=== PATIENT | female | born 1950 | race Two or more races ===

== ENCOUNTER 2024-12-13 22:43 | Inpatient (IN) | payer OTHER ==
[~2024-12-13] VITALS: Ht 160 cm; Wt 74.5 kg
[2024-12-14 00:13] VITALS: PULSE 67; RESP 18; O2SAT 100
--- NOTE | 2024-12-14 01:05 | DVH ---
Exam: CT CT AB PEL WO CON-NO ORAL OR IV History: abd pain Comparison Study: None Technique: Multidetector spiral CT of the abdomen was performed from lung bases to pubic symphysis. I maging was performed without IV contrast. Axial, coronal and sagittal multiplanar reformats were obta ined from the axial data set by the technologist. Radiation Dose : 1. Abdomen/Pelvis: CTDIvol 24.08 mGy, DLP 1288.53 mGy*cm. Findings: Evaluation of solid organs is limited due to lack of intravenous contrast use. Lung Bases: Moderate right pleural effusion with adjacent atelectasis. The left lung base is clear. C ardiomegaly and cardiac pacing leads. No pericardial effusion. Liver: The liver is moderately enlarged. No focal lesions. Gallbladder and Biliary Tree: Unremarkable Spleen: Splenic parenchymal calcifications. Pancreas: The pancreas is grossly normal in appearance. Adrenal Glands: Unremarkable Kidneys: Mild bilateral renal atrophy and multifocal cortical scarring. Bilateral renal cortical cys ts measure up to 3.2 cm on the right. No evidence of calculi or hydronephrosis. Bladder: Grossly unremarkable for degree of distention. Bowel: The stomach is grossly normal in appearance. Small bowel and colon are normal in caliber and d istribution. Diverticulosis coli. The appendix is not visualized; however, no secondary findings of a cute appendicitis identified. Ascites: Moderate volume abdominopelvic ascites. Lymphadenopathy: No mesenteric, retroperitoneal or periportal lymphadenopathy. Abdominal Wall and Mesentery: Unremarkable. Vasculature: The visualized abdominal aorta is normal in size and caliber. Atherosclerotic vascular c alcifications. Evaluation of abdominal and pelvic vessels is limited due to lack of intravenous cont rast. Pelvic Organs: Lobulated predominantly soft tissue mass within the central anterior superior pelvis m easuring 9.0 x 7.8 cm and containing scattered parenchymal calcifications appears to arise from the u terine fundus. Fluid containing right femoral hernia. Musculoskeletal: No aggressive focal bony lesions, acute fractures or dislocation. IMPRESSION: 1. Moderate right pleural effusion with adjacent atelectasis. 2. Moderate volume abdominopelvic ascites. 3. Cardiomegaly. 4. Lobulated superior anterior pelvic mass appears to arise from the uterine fundus and may represent uterine leiomyomata, however other malignancies are not excluded. 5. Diverticulosis coli. Radiation optimization: All CT scans at this facility use at least one of these dose optimization davis hniques: automated exposure control mA and/or kV adjustment per patient size (includes targeted exam s where dose is matched to clinical indication) or iterative reconstruction.
--- NOTE | 2024-12-14 01:30 | ED.PDOC ---
GI ASSESSMENT HPI Comments 74-year-old female complaining of abdominal pain x1 year. States pain has been getting worse over the last month. Nothing makes it better, nothing makes it worse. Patient states she came from [place] [facility]. States no one has been listening to her. Patient states he has been going to the bathroom normally. No vomiting no diarrhea. Chief Complaint: Abdominal Pain Time Seen by MD: 23:19 Reviewed Notes: Nurses Notes Allergies: Coded Allergies: Lidocaine (Verified Allergy, Unknown, 12/13/24) Morphine (Verified Allergy, Unknown, 12/13/24) Information Source: Patient Mode of Arrival: EMS Past Medical History PAST MEDICAL HISTORY: Denies Surgical History: Denies all surgeries HYDRAULIC MINER History: No Pertinent HYDRAULIC MINER History Constitutional: denies: chills, diaphoresis, fatigue, fever, malaise, sweats, weakness, others EENTM: denies: blurred vision, double vision, ear bleeding, ear discharge, ear drainage, ear pain, ear ringing, eye pain, eye redness, hearing loss, mouth pain, mouth swelling, nasal discharge, nose bleeding, nose congestion, nose pain, photophobia, tearing, throat pain, throat swelling, voice changes, others Respiratory: denies: cough, hemoptysis, orthopnea, SOB at rest, shortness of breath, SOB with excertion, stridor, wheezing, others Cardiovascular: denies: chest pain, dizzy spells, diaphoresis, Dyspnea on exertion, edema, irregular heart beat, left arm pain, lightheadedness, palp itations, PND, syncope, others Gastrointestinal: denies: abdomen distended, abdominal pain, blood streaked bowels, constipated, diarrhea, dysphagia, difficulty swallowing, hematemesis, melena, nausea, poor appetite, poor fluid intake, rectal bleeding, rectal pain, vomiting, others Genitourinary: denies: abnormal vagina bleeding, burning, dyspareunia, dysuria, flank pain, frequency, hematuria, incontinence, pain, , vagina discharge, urgency, others Neurological: denies: dizziness, fainting, headache, left sided numbness, left sided weakness, numbness, paresthesia, pre-existing deficit, right sided numbness, right sided weakness, seizure, speech problems, tingling, tremors, weakness, others Musculoskeletal: denies: back pain, gout, joint pain, joint swelling, muscle pain, muscle stiffness, neck pain, others Integumetry: denies: bruises, change in color, change in hair/nails, dryness, laceration, lesions, lumps, rash, wounds, others Allergic/Immunocompromised: denies: Difficulty Healing, Frequent Infections, Hives, Itching, others Physical Exam General Appearance: Moderate Distress, Normal HEENT: Normal ENT Inspection, Pharynx Normal, TMs Normal Neck: Full Range of Motion, Non-Tender, Normal, Normal Inspection Respiratory: Chest Non-Tender, Lungs Clear, No Accessory Muscle Use, No Respiratory Distress, Normal Breath Sounds Cardiovascular: No Edema, No JVD, No Murmur, No Gallop, Normal Peripheral Pulses, Regular Rate/Rhythm Breast Exam: Deferred Gastrointestinal: No Organomegaly, Non Tender, No Pulsatile Mass, Normal Bowel Sounds, Soft Genitalia: Deferred Pelvic: Deferred Rectal: Deferred Extremities: No calf tenderness, Normal capillary refill, Normal inspection Musculoskeletal : Apperance: Normal Neurologic: Alert, 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 Was a procedure done?: No GI differential Dx Differential Diagnosis: Appendicitis, Gastritis/PUD, Gastroenteritis, GI hemorrhage, Pancreatitis X-Ray, Labs, Meds, VS Vital Signs Date Time Temp Pulse Resp B/P (MAP) Pulse Ox O2 Delivery O2 Flow Rate FiO2 12/14/24 00:13 97.7 68 16 125/64 (84) 100 97.7 12/14/24 00:13 67 18 100 Nasal Cannula* 4 36 12/14/24 00:00 111 12/14/24 00:00 112 12/13/24 22:47 98.6 110 18 127/63 (84) 99 98.6 X-Ray, Labs, Meds, VS Comment CT abdomen and pelvis IMPRESSION: 1. Moderate right pleural effusion with adjacent atelectasis. 2. Moderate volume abdominopelvic ascites. 3. Cardiomegaly. 4. Lobulated superior anterior pelvic mass appears to arise from the uterine fundus and may represent uterine leiomyomata, however other malignancies are not excluded. 5. Diverticulosis coli. Patient will be admitted for right pleural effusion, ascites, possible malignancy in the uterus Patient refused lab works Time of 1ST Reevaluation: 01:26 Reevaluation 1ST: Unchanged Patient Education/Counseling: Diagnosis, Treatment Family Education/Counseling: Diagnosis, Treatment Departure 1 Departure Time of Disposition: :25 Impression: Primary Impression: Abdominal pain Qualified Codes: R10.84 - Generalized abdominal pain Additional Impressions: Ascites Qualified Codes: R18.0 - Malignant ascites Abdominal mass Qualified Codes: R19.00 - Intra-abdominal and pelvic swelling, mass and lump, unspecified site Disposition: ADMITTED INPATIENT Condition: Stable Discharged With: Self Critical Care Note Critical Care Time?: No Stability Stability form required: No Heart Score Heart Score: Heart Score Response (Comments) Value History N/A 0 EKG N/A 0 Age N/A 0 Risk Factors N/A 0 Troponin N/A 0 Total 0 ARVIN AMES December 14, 2024 01:30
[2024-12-14] MEDS: traMADol HCL 50 MG TAB PO ONE (05:45)
[2024-12-14] MEDS: ACETAMINOPHEN 500 MG TAB or CAP PO ONE (05:45)
[2024-12-14] MEDS: ASPirin 81 mg TAB PO ONE (05:46)
[2024-12-14 06:04] LABS: Basophils # (auto) 0.1 10 ^3/uL (0-0.2); Eosinophils # (auto) 0.1 10 ^3/uL (0-0.8); Eosinophils % (auto) 1.8 % (0.0-7.0); Hematocrit 27.8 % (36.0-46.0); Hemoglobin 8.8 g/dL (12.2-16.2); Lymphocytes # (auto) 1.2 10 ^3/uL (0.4-5.4); Mean Corpuscular Hemoglobin 29.7 pg (28.0-32.0); Mean Corpuscular Hgb Conc. 31.8 g/dL (32.0-36.0); Mean Corpuscular Volume 93.4 fL (80.0-100.0); Monocytes # (auto) 0.5 10 ^3/uL (0-1.3); Monocytes % (auto) 8.5 % (0.0-12.0); Neutrophils # (auto) 3.8 10 ^3/uL (1.6-8.6); Neutrophils % (auto) 67.7 % (37.0-80.0); Nucleated Red Blood Cells % 0.2 %; Platelet Count (auto) 158 10^3/uL (140-450); Red Blood Cells 2.98 10^6/uL (4.0-5.20); Red Cell Distribution Width 19.1 % (11.8-14.3); White Blood Cell 5.6 10^3/uL (4.4-10.8)
[2024-12-14 06:05] LABS: Alanine Aminotransferase 17 U/L (7-40); Albumin 3.8 g/dL (3.2-4.8); Anion Gap 14 (5-15); BUN/Creatinine Ratio 7.4 (10.0-20.0); Carbon Dioxide 24 mmol/L (20-31); Chloride 100 mmol/L (98-107); Glucose 80 mg/dL (74-106); Sodium 138 mmol/L (136-145); Total Protein 6.8 g/dL (5.7-8.2)
[2024-12-14 06:06] LABS: Bilirubin, Total 0.5 mg/dL (0.2-1.0)
[2024-12-14 06:11] LABS: Alkaline Phosphatase 120 U/L (46-116); Aspartate Aminotransferase 12 U/L (13-40); Blood Urea Nitrogen 46 mg/dL (9-23)
[2024-12-14 06:12] LABS: Potassium 5.9 mmol/L (3.5-5.1)
[2024-12-14 06:21] LABS: Lipase 32 U/L (12-53)
--- NOTE | 2024-12-14 06:57 | ECG ---
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
--- NOTE | 2024-12-14 06:57 | ECG ---
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
[2024-12-14] MEDS ORDERED: MORPHINE SULFATE 4 MG/ML SYR/VIAL IV ONE (07:15)
[2024-12-14] MEDS: ALBUTEROL SULF 2.5 MG/0.5ML(0.5%) NEB SOLN NEB ONE (07:54)
[2024-12-14] MEDS: LORazepam 2MG/ML-1ML VIAL IV ONE ×2 (07:59→14:41)
[2024-12-14] MEDS: CALCIUM GLUC 1,000mg/50ml-NS 50 ML IV ONE (08:03)
[2024-12-14] MEDS: SODIUM BICARB 8.4% 50Meq/50ml SYR INJ IV ONE (08:04)
[2024-12-14] MEDS: ONDANSETRON HCL 4 MG/2 ML VIAL IV ONE (08:04)
--- NOTE | 2024-12-14 08:26 | ED.PDOC ---
Departure 1 Departure Time of Disposition: 08:25 ([place] authorization to admit to [facility] [id number] with worsening hyperkalemia and elevated troponin. We will admit patient here for further workup) Impression: Primary Impression: Abdominal pain Qualified Codes: R10.84 - Generalized abdominal pain Additional Impressions: Abdominal mass Qualified Codes: R19.00 - Intra-abdominal and pelvic swelling, mass and lump, unspecified site Ascites Qualified Codes: R18.0 - Malignant ascites Hyperkalemia Elevated troponin Disposition: ADMITTED INPATIENT Admit to: [facility] Condition: Guarded Discharged With: Self Critical Care Note Critical Care Time?: Yes Critical care comment: Hyperkalemia Authorized and Performed by: Jean Hernadez MD Total critical care time: Approximately 32 minutes Due to a high probability of clinically significant, life threatening deterioration, the patient required my highest level of preparedness to int ervene emergently and I personally spent this critical care time directly and personally managing the patient. This critical care time included obtaining a history; examining the patient; pulse oximetry; ordering and review of studies; arranging urgent treatment with development of a management plan; evaluation of patient's response to treatment; frequent reassessment; and, discussions with other providers. This critical care time was performed to assess and manage the high probability of imminent, life-threatening deterioration that could result in multi-organ failure. It was exclusive of separately billable procedures and treating other patients and teaching time. Please see my other sections and the rest of the note for further information on patient assessment and treatment. JEAN HERNADEZ MD December 14, 2024 08:26
[2024-12-14] MEDS: FUROSEMIDE 40 MG/4 ML VIAL IV ONE (08:32)
[2024-12-14 08:37] VITALS: PULSE 111; RESP 20; O2SAT 93
[2024-12-14] MEDS: DEXTROSE (50%) 50ML SYRG IV ONE (08:42)
[2024-12-14] MEDS: HYDROcodone-ACET 5/325MG TAB PO ONE (08:42)
[2024-12-14] MEDS: InsuLIN REG 1unit/0.01ml Soln (100units/ml) IV ONE (08:42)
[2024-12-14] MEDS ORDERED: MORPHINE SULFATE INJ 2 MG/ml SYRG IV PRN (09:45)
[2024-12-14] MEDS ORDERED: DOCUSATE SOD 100 MG CAP PO PRN (09:45)
[2024-12-14] MEDS ORDERED: NITROGLYCERIN 0.4 MG SL TAB SL PRN (09:45)
[2024-12-14] MEDS ORDERED: SERT-289 PO (09:58)
[2024-12-14] MEDS ORDERED: CARV25TA55 PO (09:58)
[2024-12-14] MEDS ORDERED: AMLO1TAB22 PO (09:58)
[2024-12-14] MEDS ORDERED: APIX2.5T PO (09:58)
[2024-12-14] MEDS ORDERED: BUME2TAB5 PO (09:58)
[2024-12-14] MEDS ORDERED: ATOR20TA50 PO (09:58)
[2024-12-14] MEDS ORDERED: PANT40T PO (09:58)
[2024-12-14] MEDS: SERTRALINE HCL 50 MG TAB PO SCH (10:00)
[2024-12-14] MEDS: PANTOPRAZOLE 40 MG TAB PO SCH (10:00)
[2024-12-14] MEDS: APIXABAN 2.5 MG TAB PO SCH (10:00)
[2024-12-14] MEDS ORDERED: INSUINJ2 SC (10:03)
[2024-12-14] MEDS ORDERED: INSU1INJ4 SC (10:03)
[2024-12-14] MEDS: CARVEDILOL 12.5 MG TAB PO SCH (10:21)
[2024-12-14] MEDS: amLODIPine BESYLATE 5 MG TAB PO SCH (10:43)
[2024-12-14] MEDS: INSULIN NPH Isophane (HUMAN) 1unit/0.01ml Susp(100units/ml) SC SCH (10:44)
--- NOTE | 2024-12-14 10:56 | DVHHP2 ---
History of Present Illness Reason for Visit: Abdoinal pain History of Present Illness Ernestina Unger is a 74-year-old female with past medical history of ESRD on HD M,W,F, hypertension, CHF, diabetes, hyperlipidemia, gastric ulcer, anxiety, atrial fibrillation and weakness who is being seen for abdominal pain. On assessment, patient is altered and unable to provide any history. I called and spoke with her daughter. She stated the patient typically lives with her. She was recently hospitalized and then discharged to a SNF for acute rehabilitation on 11/18/2024. She states the patient has been complaining of abdominal pain and was recently diagnosed with GERD. CT scan completed in ER showed an abdominal ma ss, the patient's daughter states they did not know anything about her having an abdominal mass. Cardiovascular: AFIB, HTN, hyperipidemia Renal/: Chronic renal failure Endocrine: Diabetes Smoke: No ALCOHOL: none Drugs: None Lives: Long Term Domestic Violence: Neg Review of Systems Constitutional: No: Fever, Chills, Sweats, Weakness, Malaise, Other Eyes: No: Pain, Vision change, Conjunctivae inflammation, Eyelid inflammation, Other, Redness ENT: No: Ear pain, Ear discharge, Nose pain, Nose discharge, Nose congestion, Mouth pain, Mouth swelling, Throat pain, Throat swelling, Other Respiratory: No: Cough, Dry, Shortness of breath, SOB with excertion, Wheezing, Hemoptysis, Pleuritic Pain, Sputum, Wheezing, Other Cardiovascular: No: Chest Pain, Palpitations, Orthopnea, Paroxysmal Noc. Dyspnea, Edema, Lt Headedness, Other Gastrointestinal: Abdominal Pain; No: Nausea, Vomiting, Diarrhea, Constipation, Melena, Hematochezia, Other Genitourinary: No Dysuria, No Frequency, No Incontinence, No Hematuria, No Retention, No Other Skin: No: Rash, Lesions, Jaundice, Bruising, Other Allergies: Coded Allergies: Lidocaine (Verified Allergy, Unknown, 12/13/24) Morphine (Verified Allergy, Unknown, 12/13/24) Medications Current Medications Medications Dose Ordered Sig/June Route Start Time Stop Time Status Last Admin Dose Admin Sodium Chloride 10 ml Q8HR IV 12/14/24 14:00 UNV Acetaminophen/ Hydrocodone Bitart 1 tab Q4HP PRN PO 12/14/24 09:45 UNV Ondansetron HCl 4 mg Q4HP PRN IV 12/14/24 09:45 UNV Docusate Sodium 100 mg BIDPRN PRN PO 12/14/24 09:45 UNV Acetaminophen 650 mg Q6HP PRN PO 12/14/24 09:45 UNV Nitroglycerin 0.4 mg Q5MINP PRN SL 12/14/24 09:45 UNV Morphine Sulfate 2 mg Q30M PRN IV 12/14/24 09:45 UNV Amlodipine Besylate 5 mg DAILY PO 12/14/24 10:00 UNV Apixaban 2.5 mg BID PO 12/14/24 10:00 UNV Atorvastatin Calcium 20 mg HS PO 12/14/24 22:00 UNV Pantoprazole Sodium 40 mg BID PO 12/14/24 10:00 UNV Sertraline HCl 50 mg DAILY PO 12/14/24 10:00 UNV Patient Own Medication 1 tab BID PO 12/14/24 10:00 UNV Patient Own Medication 1 tab BID PO 12/14/24 10:00 UNV Exam Vital Signs Vital Signs Date Time Temp Pulse Resp B/P (MAP) Pulse Ox O2 Delivery O2 Flow Rate FiO2 12/14/24 08:32 177/61 12/14/24 08:00 99 21 100 12/14/24 07:54 Nasal Cannula* 2 28 12/14/24 00:13 97.7 97.7 General Appearance: Alert, Oriented X3 HEENT: Atraumatic, PERRLA Respiratory: Clear to auscultation, Normal air movement Cardiovascular: Regular rate, Normal S1, Normal S2 Abdominal: Normal bowel sounds, Soft, No tenderness Extremities: No clubbing Skin: No rashes Neuro: Normal gait Psych/Mental Status: Mental status NL, Mood NL Labs/Xrays Labs Test 12/14/24 08:42 12/14/24 05:24 Range/Units Troponin I High Sensitivity 121 *H </=34 ng/L White Blood Count 5.6 4.4-10.8 10^3/uL Red Blood Count 2.98 L 4.0-5.20 10^6/uL Hemoglobin 8.8 L 12.2-16.2 g/dL Hematocrit 27.8 L 36.0-46.0 % Mean Corpuscular Volume 93.4 80.0-100.0 fL Mean Corpuscular Hemoglobin 29.7 28.0-32.0 pg Mean Corpuscular Hemoglobin Concent 31.8 L 32.0-36.0 g/dL Red Cell Distribution Width 19.1 H 11.8-14.3 % Platelet Count 158 140-450 10^3/uL Mean Platelet Volume 8.2 6.9-10.8 fL Neutrophils (%) (Auto) 67.7 37.0-80.0 % Lymphocytes (%) (Auto) 21.0 10.0-50.0 % Monocytes (%) (Auto) 8.5 0.0-12.0 % Eosinophils (%) (Auto) 1.8 0.0-7.0 % Basophils (%) (Auto) 1.0 0.0-2.0 % Neutrophils # (Auto) 3.8 1.6-8.6 10 ^3/uL Lymphocytes # (Auto) 1.2 0.4-5.4 10 ^3/uL Monocytes # (Auto) 0.5 0-1.3 10 ^3/uL Eosinophils # (Auto) 0.1 0-0.8 10 ^3/uL Basophils # (Auto) 0.1 0-0.2 10 ^3/uL Nucleated Red Blood Cells 0.2 % Sodium Level 138 136-145 mmol/L Potassium Level 5.9 *H 3.5-5.1 mmol/L Chloride Level 100 98-107 mmol/L Carbon Dioxide Level 24 20-31 mmol/L Anion Gap 14 5-15 Blood Urea Nitrogen 46 H 9-23 mg/dL Creatinine 6.22 H 0.550-1.02 mg/dL Glomerular Filtration Rate Calc 7 >90 mL/min BUN/Creatinine Ratio 7.4 L 10.0-20.0 Serum Glucose 80 74-106 mg/dL Calcium Level 10.0 8.7-10.4 mg/dL Total Bilirubin 0.5 0.2-1.0 mg/dL Aspartate Amino Transferase (AST) 12 L 13-40 U/L Alanine Aminotransferase (ALT) 17 7-40 U/L Alkaline Phosphatase 120 H 46-116 U/L Total Protein 6.8 5.7-8.2 g/dL Albumin 3.8 3.2-4.8 g/dL Lipase 32 12-53 U/L Exam: CT CT AB PEL WO CON-NO ORAL OR IV Findings: Evaluation of solid organs is limited due to lack of intravenous contrast use. Lung Bases: Moderate right pleural effusion with adjacent atelectasis. The left lung base is clear. Cardiomegaly and cardiac pacing leads. No pericardial effusion. Liver: The liver is moderately enlarged. No focal lesions. Gallbladder and Biliary Tree: Unremarkable Spleen: Splenic parenchymal calcifications. Pancreas: The pancreas is grossly normal in appearance. Adrenal Glands: Unremarkable Kidneys: Mild bilateral renal atrophy and multifocal cortical scarring. Bilateral renal cortical cysts measure up to 3.2 cm on the right. No evidence of calculi or hydronephrosis. Bladder: Grossly unremarkable for degree of distention. Bowel: The stomach is grossly normal in appearance. Small bowel and colon are normal in caliber and distribution. Diverticulosis coli. The appendix is not visualized; however, no secondary findings of acute appendicitis identified. Ascites: Moderate volume abdominopelvic ascites. Lymphadenopathy: No mesenteric, retroperitoneal or periportal lymphadenopathy. Abdominal Wall and Mesentery: Unremarkable. Vasculature: The visualized abdominal aorta is normal in size and caliber. Atherosclerotic vascular calcifications. Evaluation of abdominal and pelvic vessels is limited due to lack of intravenous contrast. Pelvic Organs: Lobulated predominantly soft tissue mass within the central anterior superior pelvis measuring 9.0 x 7.8 cm and containing scattered parenchymal calcifications appears to arise from the uterine fundus. Fluid containing right femoral hernia. Musculoskeletal: No aggressive focal bony lesions, acute fractures or dislocation. IMPRESSION: 1. Moderate right pleural effusion with adjacent atelectasis. 2. Moderate volume abdominopelvic ascites. 3. Cardiomegaly. 4. Lobulated superior anterior pelvic mass appears to arise from the uterine fundus and may represent uterine leiomyomata, however other malignancies are not excluded. 5. Diverticulosis coli. Assessment/Plan Assessment/Plan Assessment: Hyperkalemia, Elevated troponin, likely due to chronic kidney disease, Cardiomegaly, Pleural effusion, Ascites, Pelvic Mass, possible uterine leiomyoma, Metabolic encephalopathy, ESRD on HD-M,W,F, CHF, Diabetes, Hypertension, Plan: Admit to Tele, Nephrology consult, Consider DISTRICT ASSOCIATE JUDGE consult, Possible IR consult for biopsy, Hyperkalemia protocol, Hemodialysis, Home medications reconciled, Plan discussed with: Patient My Orders Orders - MANPREET ALONZO Procedure Category Date Status Time Admit ADMIT 12/14/24 Transmitted 09:42 Code Status CODE 12/14/24 Transmitted 09:42 Renal DIET 12/14/24 Transmitted Standard(2gna,3gk,Lopho) Lunch Sodium Chloride Lock PHA 12/14/24 Logged (Saline Lock Ns) 14:00 Hydrocodone-Acet PHA 12/14/24 Logged 5/325mg Tab ([place] 09:45 Ondansetron Hcl PHA 12/14/24 Logged (Zofran) 09:45 Docusate Sodium PHA 12/14/24 Logged Capsule (Colace 09:45 Complete Blood Count LAB 12/15/24 Verified 04:00 Comprehensive LAB 12/15/24 Verified Metabolic Panel 04:00 Condition: Critical ALEJANDRO 12/14/24 In Process 09:42 Acetaminophen Tablet PHA 12/14/24 Logged (Tylenol Tablet) 09:45 Nitroglycerin PHA 12/14/24 Logged Sublingual (Ntrostat 09:45 Morphine Sulfate PHA 12/14/24 Logged Injection 09:45 Stat Ekg For Chest ALEJANDRO 12/14/24 In Process Pain 09:42 Notify Of Changes ALEJANDRO 12/14/24 In Process From Base 09:42 Firebreak Cutter For ALEJANDRO 12/14/24 In Process 24 Hours 09:42 Emergency Dysrhythmia ALEJANDRO 12/14/24 In Process Protocol 09:42 Rhythm Strips Once ALEJANDRO 12/14/24 In Process Every Shift 09:42 Oxygen By Nasal RT 12/14/24 Transmitted Cannula 09:42 Amlodipine Tablet PHA 12/14/24 Logged (Norvasc Tablet) 10:00 Apixaban (Eliquis) PHA 12/14/24 Logged 10:00 Atorvastatin (Lipitor) PHA 12/14/24 Logged 22:00 Pantoprazole Tablet PHA 12/14/24 Logged (Protonix Tablet) 10:00 Sertraline Hcl PHA 12/14/24 Logged (Zoloft) 10:00 (Nf) Bumetanide PHA 12/14/24 Logged 10:00 (Nf) Carvedilol PHA 12/14/24 Logged 10:00 Insulin Nph Isophane PHA 12/14/24 Logged (Human) (Novolin N) 10:00 (Nf) Insulin Nph PHA 12/14/24 Logged (Human) (Isophane) 22:00 Glucose Blood PHA 12/14/24 Transmitted (Accu-Chek Comfort 11:30 Bedtime Insulin Scale PHA 12/14/24 Transmitted 22:00 Moderate Insulin Ss PHA 12/14/24 Transmitted 11:30 Dextrose 50% Syringe PHA 12/14/24 Transmitted 10:15 Date of Service: December 14, 2024 Billing Provider: MANPREET ALONZO Common Visit Codes: [id number] INP/OBS CARE (MOD) MANPREET ALONZO December 14, 2024 10:56
[2024-12-14] MEDS: ACCU-CHEK COMFORT CURVE STRIP VI SCH (11:00)
[2024-12-14] MEDS: InsuLIN REG 1unit/0.01ml Soln (100units/ml) SC SCH ×2 (11:00→21:58)
[2024-12-14] MEDS ORDERED: VANCOMYCIN PER PHARMACY 0 MG IV SCH (11:00)
[2024-12-14] MEDS: SODIUM CHLOR 0.9% PF (SALINE LOCK) 10ML VIAL/SYR IV SCH (11:01)
[2024-12-14] MEDS ORDERED: VANCOMYCIN 1.5GM/300ML 300 ML IV ONE (11:30)
[2024-12-14] MEDS: SODIUM CHL 0.9% 1000 ML BAG XX ONE (12:15)
[2024-12-14] MEDS: LORazepam 2MG/ML-1ML VIAL ONE (14:22)
--- NOTE | 2024-12-14 15:34 | DVHINCON2 ---
Date of service: December 14, 2024 Referring Physician INEZ Rajput Reason for Consultation End-stage renal disease. History of Present Illness 74-year-old patient with significant history of end-stage renal disease on hemodialysis Friday, hypertension, diabetes type 2, CHF, hyperlipidemia, history of gastric ulcer, anxiety, atrial fibrillation, generalized weakness status post prolonged hospitalization currently at a rehabilitation place where she was experienced chronic nausea. Patient presented to the hospital complains of abdominal pain generalized on and off worse today associated with confusion and generalized weakness per denying any vomiting nausea vomiting. I was unable to obtain from patient the intensity of the pain given she is confused drowsy. Laboratory data revealed end-stage renal disease labs in addition to hyperkalemia. Past Medical History Diabetes type 2, hypertension, end-stage renal disease, hyperlipidemia, anxiety Past Surgical History Right upper arm AV fistula creation Allergies: Coded Allergies: Lidocaine (Verified Allergy, Unknown, 12/13/24) Morphine (Verified Allergy, Unknown, 12/13/24) Home Meds Reported Medications Insulin NPH (Human) (Isophane) (Humulin N) 100 Unit/Ml Inj, 21 UNIT SC DAILY, INJ 12/14/24 Insulin NPH (Human) (Isophane) (Humulin N Kwikpen) 100 Unit/Ml Inj, 10 UNIT SC HS 12/14/24 Apixaban Base (ELIQUIS) 2.5 Mg Tab, 1 TAB PO BID 12/14/24 Bumetanide (Bumetanide) 2 Mg Tab, 1 TAB PO BID 12/14/24 Sertraline HCl (Sertraline HCl) 50 Mg Tab, 1 TAB PO DAILY 12/14/24 Pantoprazole Sodium Sesquihydr (Pantoprazole Sodium) 40 Mg Tab, 1 TAB PO BID 12/14/24 Amlodipine Besylate (Amlodipine Besylate) 5 Mg Tab, 1 TAB PO DAILY 12/14/24 Carvedilol (Carvedilol) 25 Mg Tab, 1 TAB PO BID 12/14/24 Atorvastatin Calcium (ATORVASTATIN CALCIUM) 20 Mg Tab, 1 TAB PO HS 12/14/24 Current Medications Current Medications Medications (Trade) Dose Ordered Sig/June Route PRN Reason Start Time Stop Time Status Last Admin Sodium Chloride (Saline Lock Ns) 10 ml Q8HR IV 12/14/24 14:00 12/14/24 11:01 Acetaminophen/ Hydrocodone Bitart ([place] 5/325MG Tab) 1 tab Q4HP PRN PO MODERATE PAIN (4-6 PAIN SCALE) 12/14/24 09:45 Ondansetron HCl (Zofran) 4 mg Q4HP PRN IV NAUSEA / VOMITING 12/14/24 09:45 Docusate Sodium (Colace Capsule) 100 mg BIDPRN PRN PO FOR CONSTIPATION 12/14/24 09:45 Acetaminophen (Tylenol Tablet) 650 mg Q6HP PRN PO PAIN SCALE 1-3 OR TEMP>100.4 12/14/24 09:45 Nitroglycerin (Ntrostat Sublingual) 0.4 mg Q5MINP PRN SL FOR CHEST PAIN 12/14/24 09:45 Morphine Sulfate 2 mg Q30M PRN IV FOR CHEST PAIN 12/14/24 09:45 Hold Amlodipine Besylate (Norvasc Tablet) 5 mg DAILY PO 12/14/24 10:00 Apixaban (Eliquis) 2.5 mg BID PO 12/14/24 10:00 Atorvastatin Calcium (Lipitor) 20 mg HS PO 12/14/24 22:00 Pantoprazole Sodium (Protonix Tablet) 40 mg BID PO 12/14/24 10:00 Sertraline HCl (Zoloft) 50 mg DAILY PO 12/14/24 10:00 Bumetanide (Bumex Tablet) 2 mg BIDD PO 12/14/24 18:00 Carvedilol (Coreg Tablet) 25 mg BID PO 12/14/24 10:21 Hold Insulin Human NPH (NovoLIN N) 21 units DAILY SC 12/14/24 10:00 Hold Insulin Human NPH (NovoLIN N) 10 units HS SC 12/14/24 22:00 Future Hold Diagnostic Test (Pha) (Accu-Chek Comfort Curve T) 1 strip ACHS 12/14/24 11:30 12/14/24 11:00 Insulin Human Regular (InsuLIN R) HS SC 12/14/24 22:00 Insulin Human Regular (InsuLIN R) AC SC 12/14/24 11:30 Dextrose 50 ml UD PRN IV Blood Sugar LESS THAN 60 12/14/24 10:15 Vancomycin HCl 0 ml @ 0 mls/hr UD IV 12/14/24 11:00 Family History Unable to obtain patient is confused Social History Unable to obtain patient is confused Review of Systems HEENT: Oral mucosa dry Neck no JVD Cardiovascular: Denies for chest pain denies orthopnea or PND Respiratory: Denies cough or shortness of breath Gastrointestinal: Denies for nausea vomiting Musculoskeletal: Denies myalgias Neurological: Denies focal weakness, Drowsy positive generalized weakness Dermatological: Denies any rash The rest of the review of systems were reviewed pertinent positives and pertinent negatives are as per HPI up to 12 points review of systems H&P Exam Vital Signs/I&O Vital Sign Date Time Temp Pulse Resp B/P (MAP) Pulse Ox O2 Delivery O2 Flow Rate FiO2 12/14/24 12:00 114 16 115/68 (84) 100 12/14/24 11:43 97.8 97.8 12/14/24 08:37 Nasal Cannula* 3 32 Physical Exam HEENT: No evidence of JVD, no oral ulcers. Pulmonary:Diminished lung sounds on auscultation bilaterally Cardiovascular S1-S2, no S3 or S4 Abdomen: Bowel sounds positive, soft no rebound tenderness Skin: No rash Neurological: drowsy, confused, generalized weakness Labs/Diagnostic Data Labs/Diagnostic Data Laboratory Tests Test 12/14/24 11:48 12/14/24 10:54 12/14/24 08:42 12/14/24 06:32 Range/Units Potassium Level 6.4 *H 3.5-5.1 mmol/L POC Glucose 89 70-106 mg/dl Troponin I High Sensitivity 121 *H 119 *H </=34 ng/L Test 12/14/24 05:24 Range/Units White Blood Count 5.6 4.4-10.8 10^3/uL Red Blood Count 2.98 L 4.0-5.20 10^6/uL Hemoglobin 8.8 L 12.2-16.2 g/dL Hematocrit 27.8 L 36.0-46.0 % Mean Corpuscular Volume 93.4 80.0-100.0 fL Mean Corpuscular Hemoglobin 29.7 28.0-32.0 pg Mean Corpuscular Hemoglobin Concent 31.8 L 32.0-36.0 g/dL Red Cell Distribution Width 19.1 H 11.8-14.3 % Platelet Count 158 140-450 10^3/uL Mean Platelet Volume 8.2 6.9-10.8 fL Neutrophils (%) (Auto) 67.7 37.0-80.0 % Lymphocytes (%) (Auto) 21.0 10.0-50.0 % Monocytes (%) (Auto) 8.5 0.0-12.0 % Eosinophils (%) (Auto) 1.8 0.0-7.0 % Basophils (%) (Auto) 1.0 0.0-2.0 % Neutrophils # (Auto) 3.8 1.6-8.6 10 ^3/uL Lymphocytes # (Auto) 1.2 0.4-5.4 10 ^3/uL Monocytes # (Auto) 0.5 0-1.3 10 ^3/uL Eosinophils # (Auto) 0.1 0-0.8 10 ^3/uL Basophils # (Auto) 0.1 0-0.2 10 ^3/uL Nucleated Red Blood Cells 0.2 % Sodium Level 138 136-145 mmol/L Potassium Level 5.9 *H 3.5-5.1 mmol/L Chloride Level 100 98-107 mmol/L Carbon Dioxide Level 24 20-31 mmol/L Anion Gap 14 5-15 Blood Urea Nitrogen 46 H 9-23 mg/dL Creatinine 6.22 H 0.550-1.02 mg/dL Glomerular Filtration Rate Calc 7 >90 mL/min BUN/Creatinine Ratio 7.4 L 10.0-20.0 Serum Glucose 80 74-106 mg/dL Calcium Level 10.0 8.7-10.4 mg/dL Total Bilirubin 0.5 0.2-1.0 mg/dL Aspartate Amino Transferase (AST) 12 L 13-40 U/L Alanine Aminotransferase (ALT) 17 7-40 U/L Alkaline Phosphatase 120 H 46-116 U/L Troponin I High Sensitivity 129 *H </=34 ng/L Total Protein 6.8 5.7-8.2 g/dL Albumin 3.8 3.2-4.8 g/dL Lipase 32 12-53 U/L CT scan abdomen pelvis showed ascites, pleural effusion, uterine mass Assessment Assessment: 1. end-stage renal disease on hemodialysis Friday via right upper arm AV fistula 2. hyperkalemia 3. altered mental status 4. hypertension 5. diabetes type 2 6. debility plan: dialysis today was called stat appreciated dialysis team 1K bath, UF as tolerated CT head with the contrast Advanced Practice Provider has been consulted Check ammonia and TSH som for goal hemoglobin 10-11 fluid restriction less than 1 L per day resume phosphate binders once mentation improved Continue Bumex thank you very much for allowing us to participate in the care of this patient Plan discussed with: Patient JONAS HERNANDEZ MD December 14, 2024 15:34
[2024-12-14] MEDS: DEXTROSE (50%) 50ML SYRG IV PRN (17:38)
[2024-12-14] MEDS: BUMETANIDE 1 MG TAB PO SCH (18:00)
[2024-12-14 19:23] VITALS: PULSE 88; RESP 14; O2SAT 97
[2024-12-14] MEDS: VANCOMYCIN 1.5GM/300ML 300 ML IV ONE (20:00)
[2024-12-14 20:46] VITALS: BP 140/77; PULSE 97; RESP 19; TEMP 97.6; O2SAT 96
[2024-12-14 21:04] VITALS: BP 140/77; PULSE 82; PULSE 97; RESP 17; RESP 19; TEMP 97.6; O2SAT 96
[2024-12-14] MEDS: EPOETIN ALFA-EPBX 10,000 UNIT/1ML VIAL SC ONE (21:42)
[2024-12-14] MEDS: ATORVASTATIN 20 MG TAB PO SCH (21:44)
[2024-12-14] MEDS ORDERED: INSULIN NPH Isophane (HUMAN) 1unit/0.01ml Susp(100units/ml) SC SCH (22:00)
[2024-12-15] VITALS (7 sets, daily range): BP systolic 106–140; BP diastolic 35–80; PULSE 81–107; RESP 16–22; TEMP 97.1–97.8; O2SAT 90–100
[2024-12-15 07:10] LABS: Basophils # (auto) 0.1 10 ^3/uL (0-0.2); Basophils % (auto) 0.8 % (0.0-2.0); Eosinophils # (auto) 0 10 ^3/uL (0-0.8); Eosinophils % (auto) 0.5 % (0.0-7.0); Hematocrit 28.2 % (36.0-46.0); Hemoglobin 8.9 g/dL (12.2-16.2); Lymphocytes % (auto) 15.4 % (10.0-50.0); Mean Corpuscular Hemoglobin 29.8 pg (28.0-32.0); Mean Corpuscular Hgb Conc. 31.7 g/dL (32.0-36.0); Mean Corpuscular Volume 93.9 fL (80.0-100.0); Monocytes # (auto) 0.5 10 ^3/uL (0-1.3); Neutrophils % (auto) 75.3 % (37.0-80.0); Nucleated Red Blood Cells % 0.5 %; Platelet Count (auto) 164 10^3/uL (140-450); Red Cell Distribution Width 18.6 % (11.8-14.3); White Blood Cell 6.6 10^3/uL (4.4-10.8)
[2024-12-15 07:26] LABS: Alanine Aminotransferase 20 U/L (7-40); Albumin 3.9 g/dL (3.2-4.8); Anion Gap 16 (5-15); Aspartate Aminotransferase 19 U/L (13-40); BUN/Creatinine Ratio 7.9 (10.0-20.0); Bilirubin, Total 0.6 mg/dL (0.2-1.0); Calcium 10.3 mg/dL (8.7-10.4); Carbon Dioxide 25 mmol/L (20-31); Chloride 99 mmol/L (98-107); Sodium 140 mmol/L (136-145); Total Protein 6.9 g/dL (5.7-8.2)
[2024-12-15 08:17] LABS: Alkaline Phosphatase 120 U/L (46-116); Blood Urea Nitrogen 46 mg/dL (9-23); Glucose 70 mg/dL (74-106)
[2024-12-15] MEDS: HYDROcodone-ACET 5/325MG TAB PO PRN (11:03)
--- NOTE | 2024-12-15 12:22 | DVH ---
STUDY: Transabdominal Pelvic Ultrasound. Indication: vag bleeding COMPARISON: CT abdomen pelvis from 12/14/2024 FINDINGS: Very limited evaluation due to patient cooperation. The uterus and ovaries nonvisualized. Recommend repeat ultrasound when patient able to cooperate or M RI pelvis with and without contrast. There is ascites fluid within the abdomen. IMPRESSION: 1. As above.
--- NOTE | 2024-12-15 13:23 | DVHPN2 ---
Subjective 74-year-old female with a history of end-stage renal disease on hemodialysis, hypertension, heart failure, diabetes, hyperlipidemia, history of gastric ulcer, atrial fibrillation came with a chief complaint of abdominal pain. The patient has GERD, she had a CT scan of the abdomen and pelvis here which showed a lower abdominal mass possibly fibroid tumor Her potassium was elevated at 5.9 on admission yesterday which later went up to 6.4 and therefore she had dialysis. Potassium is 6.0 this morning She goes to dialysis 3 times a week On further questioning she said that she has been having vaginal bleeding for the last 6 months on and off however she did not know that she had a mass Changes from previous H/P or p: Changes Eyes: No Pain, No Vision change, No Conjunctivae inflammation, No Eyelid inflammation, No Other, No Redness ENT: No Ear pain, No Ear discharge, No Nose pain, No Nose discharge, No Nose congestion, No Mouth pain, No Mouth swelling, No Throat pain, No Throat swelling, No Other Cardiovascular: No Chest Pain, No Palpitations, No Orthopnea, No Paroxysmal Noc. Dyspnea, No Edema, No Lt Headedness, No Other Respiratory: No Cough, No Dry, No Shortness of breath, No SOB with excertion, No Wheezing, No Hemoptysis, No Pleuritic Pain, No Sputum, No Other Gastrointestinal: No Nausea, No Vomiting; Abdominal Pain; No Diarrhea, No Constipation, No Melena, No Hematochezia, No Other Genitourinary: No Dysuria, No Frequency, No Incontinence, No Hematuria, No Retention, No Other Skin: No Rash, No Lesions, No Jaundice, No Bruising, No Other Objective Vitals Vital Signs Date Time Temp Pulse Resp B/P (MAP) Pulse Ox O2 Delivery O2 Flow Rate FiO2 12/15/24 11:04 140/80 12/15/24 09:00 97.8 102 22 91 97.8 12/15/24 08:05 Nasal Cannula* 2 28 Intake/Output Intake and Output 12/15/24 07:00 Intake Total 200 ml Output Total 50 ml Balance 150 ml Intake Oral 200 ml Output Urine Total 50 ml General Appearance: Alert, Oriented X3, Cooperative Lungs: Clear to auscultation, Normal air movement Extremities: No edema Medications Current Medications Medications Dose Ordered Sig/June Route Start Time Stop Time Status Last Admin Dose Admin Sodium Chloride 10 ml Q8HR IV 12/14/24 14:00 12/15/24 06:27 10 ML Acetaminophen/ Hydrocodone Bitart 1 tab Q4HP PRN PO 12/14/24 09:45 12/15/24 11:03 1 TAB Ondansetron HCl 4 mg Q4HP PRN IV 12/14/24 09:45 Docusate Sodium 100 mg BIDPRN PRN PO 12/14/24 09:45 Acetaminophen 650 mg Q6HP PRN PO 12/14/24 09:45 Nitroglycerin 0.4 mg Q5MINP PRN SL 12/14/24 09:45 Morphine Sulfate 2 mg Q30M PRN IV 12/14/24 09:45 Hold Amlodipine Besylate 5 mg DAILY PO 12/14/24 10:00 12/15/24 11:04 5 MG Apixaban 2.5 mg BID PO 12/14/24 10:00 12/15/24 11:05 2.5 MG Atorvastatin Calcium 20 mg HS PO 12/14/24 22:00 12/14/24 23:35 20 MG Pantoprazole Sodium 40 mg BID PO 12/14/24 10:00 12/15/24 11:05 40 MG Sertraline HCl 50 mg DAILY PO 12/14/24 10:00 12/15/24 11:05 50 MG Bumetanide 2 mg BIDD PO 12/14/24 18:00 12/15/24 06:27 2 MG Carvedilol 25 mg BID PO 12/14/24 10:21 Hold Insulin Human NPH 21 units DAILY SC 12/14/24 10:00 Hold Insulin Human NPH 10 units HS SC 12/14/24 22:00 Hold Diagnostic Test (Pha) 1 strip ACHS 12/14/24 11:30 12/15/24 11:26 1 STRIP Insulin Human Regular HS SC 12/14/24 22:00 Insulin Human Regular AC SC 12/14/24 11:30 Dextrose 50 ml UD PRN IV 12/14/24 10:15 12/14/24 17:38 50 ML Vancomycin HCl 0 ml @ 0 mls/hr UD IV 12/14/24 11:00 Laboratory Results Laboratory Tests 12/15/24 06:57 Chemistry Test 12/15/24 06:57 Albumin 3.9 g/dL (3.2-4.8) Calcium Level 10.3 mg/dL (8.7-10.4) Total Protein 6.9 g/dL (5.7-8.2) LFT Test 12/15/24 06:57 Alanine Aminotransferase (ALT) 20 U/L (7-40) Alkaline Phosphatase 120 U/L (46-116) H Aspartate Amino Transferase (AST) 19 U/L (13-40) Total Bilirubin 0.6 mg/dL (0.2-1.0) Assessment/Plan Assessment/Plan Acute metabolic encephalopathy Abdominal pain Pelvic mass rule out fibroid tumor Right pleural effusion End-stage renal disease on hemodialysis Hyperkalemia Atrial fibrillation Hypertension Dyslipidemia Type 2 diabetes Chronic anemia of chronic kidney disease Elevated troponin, NSTEMI type 2 Plan Nephrology for dialysis Order a pelvic ultrasound to rule out uterine fibroid tumor Grid Operator consult Consult Dr. Fried for pleural effusion for possible thoracentesis Bumex Lokelma for hyperkalemia Not stable for transfer Full code Monitor closely NSTEMI: Consult Cardiology Echo Monitor closely Plan discussed with: Patient My Orders Orders - LORIN LUCAS MD Procedure Category Date Status Time Pelvic US 12/15/24 Resulted 11:18 Date of Service: December 15, 2024 Billing Provider: LORIN LUCAS MD Common Visit Codes: [id number] INP/OBS CARE(HIGH) Secondary Visit Codes: 20299-[id number] CARE PLAN 30 MINUTES LORIN LUCAS MD December 15, 2024 13:22
--- NOTE | 2024-12-15 15:01 | DVHINCON2 ---
YANET MCKEON [facility] 12/15/24 1501: Date Seen: December 15, 2024 Referring Physician MD [place] Reason for Consultation NSTEMI History of Present Illness This is a 74-year-old female who presented to the emergency room from [facility] via EMS with a chief complaint of abdominal pain for three months. At time of assessment, the patient was somewhat withdrawn. She is a poor historian. Information mostly obtained from records which indicate she presented with complaints of diffuse abdominal pain and denying nausea or vomiting. There were no cardiac complaints. She underwent a 12 lead electrocardiogram revealing an atrial fibrillation/atrial flutter rhythm at 112 bpm. Troponin levels peaked at 129 ng/L prompting cardiology evaluation. Significant medical history includes unspecified atrial fibrillation/atrial flutter on low-dose Eliquis, unspecified congestive heart failure, hypertension, dyslipidemia, insulin-dependent diabetes mellitus, end-stage renal disease on hemodialysis, and obesity. Past Medical History Past medical history reviewed. No other significant than mentioned above. Past Surgical History Dialysis access Family History: FH: colon cancer G8 MOTHER FH: heart attack G8 FATHER Family History Unable to retrieve family history at this time. Social History Unable to obtain social history at this time. Allergies: Coded Allergies: Lidocaine (Verified Allergy, Unknown, 12/13/24) Morphine (Verified Allergy, Unknown, 12/13/24) Home Meds Reported Medications Insulin NPH (Human) (Isophane) (Humulin N) 100 Unit/Ml Inj, 21 UNIT SC DAILY, INJ 12/14/24 Insulin NPH (Human) (Isophane) (Humulin N Kwikpen) 100 Unit/Ml Inj, 10 UNIT SC HS 12/14/24 Apixaban Base (ELIQUIS) 2.5 Mg Tab, 1 TAB PO BID 12/14/24 Bumetanide (Bumetanide) 2 Mg Tab, 1 TAB PO BID 12/14/24 Pantoprazole Sodium Sesquihydr (Pantoprazole Sodium) 40 Mg Tab, 1 TAB PO BID 12/14/24 Amlodipine Besylate (Amlodipine Besylate) 5 Mg Tab, 1 TAB PO DAILY 12/14/24 Carvedilol (Carvedilol) 25 Mg Tab, 1 TAB PO BID 12/14/24 Atorvastatin Calcium (ATORVASTATIN CALCIUM) 20 Mg Tab, 1 TAB PO HS 12/14/24 Discontinued Reported Medications Sertraline HCl (Sertraline HCl) 50 Mg Tab, 1 TAB PO DAILY 12/14/24 Home Meds Home medications reviewed. Current Medications Current Medications Medications (Trade) Dose Ordered Sig/June Route PRN Reason Start Time Stop Time Status Last Admin Atorvastatin Calcium (Lipitor) 20 mg HS PO 12/14/24 22:00 12/14/24 23:35 Bumetanide (Bumex Tablet) 2 mg BIDD PO 12/14/24 18:00 12/15/24 06:27 Insulin Human NPH (NovoLIN N) 10 units HS SC 12/14/24 22:00 Hold Insulin Human Regular (InsuLIN R) HS SC 12/14/24 22:00 Review of Systems Constitutional: No symptom reported Ears, Nose, & Throat: No symptom reported Eyes: No symptom reported Neurological: No symptoms reported Pulmonary/Respiratory: No symptom reported Cardiovascular: No symptom reported Gastrointestinal: Abdominal pain Genitourinary: No symptom reported Musculoskeletal: No symptom reported Skin: No symptom reported Psychiatric: No symptom reported Endocrine: No symptom reported Hemotologic/Lymphatic: No symptom reported Vital Signs Vital Signs Date Time Temp Pulse Resp B/P (MAP) Pulse Ox O2 Delivery O2 Flow Rate FiO2 12/15/24 11:04 140/80 12/15/24 09:00 97.8 102 22 91 97.8 12/15/24 08:05 Nasal Cannula* 2 28 Physical Exam General Appearance: Somewhat withdrawn. Pale. Anasarca present. In no acute distress Head Exam: Normal inspection Neck Exam: Normal inspection. Non-tender. Normal alignment Pulmonary/Respiratory: Chest non-tender. Diminished bilateral breath sounds Cardiovascular/Chest: Regular rate and rhythm. S1, S2. No murmurs. No JVD. Peripheral Pulses: 2+ Radial (R). 2+ Radial (L). 2+ Pedal (R). 2+ Pedal (L) Abdominal Exam: Normal bowel sounds. Soft. Tender to touch Ankle Exam: Negative ankle edema Lower extremities: Negative lower extremity edema Neuro/Mental Status: A&O x2-3. A very poor historian Thoughts/Psych: Unable to assess at this time Appearance: Anasarca present Skin Exam: Normal inspection. Pale color. Warm. Dry Labs/Diagnostic Data Labs Test 12/15/24 13:37 12/15/24 11:12 12/15/24 06:57 12/14/24 08:42 Range/Units Random Vancomycin Level 39.5 H 5-10 ug/mL POC Glucose 64 L 70-106 mg/dl White Blood Count 6.6 4.4-10.8 10^3/uL Red Blood Count 3.00 L 4.0-5.20 10^6/uL Hemoglobin 8.9 L 12.2-16.2 g/dL Hematocrit 28.2 L 36.0-46.0 % Mean Corpuscular Volume 93.9 80.0-100.0 fL Mean Corpuscular Hemoglobin 29.8 28.0-32.0 pg Mean Corpuscular Hemoglobin Concent 31.7 L 32.0-36.0 g/dL Red Cell Distribution Width 18.6 H 11.8-14.3 % Platelet Count 164 140-450 10^3/uL Mean Platelet Volume 8.2 6.9-10.8 fL Neutrophils (%) (Auto) 75.3 37.0-80.0 % Lymphocytes (%) (Auto) 15.4 10.0-50.0 % Monocytes (%) (Auto) 8.0 0.0-12.0 % Eosinophils (%) (Auto) 0.5 0.0-7.0 % Basophils (%) (Auto) 0.8 0.0-2.0 % Neutrophils # (Auto) 5.0 1.6-8.6 10 ^3/uL Lymphocytes # (Auto) 1.0 0.4-5.4 10 ^3/uL Monocytes # (Auto) 0.5 0-1.3 10 ^3/uL Eosinophils # (Auto) 0 0-0.8 10 ^3/uL Basophils # (Auto) 0.1 0-0.2 10 ^3/uL Nucleated Red Blood Cells 0.5 % Sodium Level 140 136-145 mmol/L Potassium Level 6.0 *H 3.5-5.1 mmol/L Chloride Level 99 98-107 mmol/L Carbon Dioxide Level 25 20-31 mmol/L Anion Gap 16 H 5-15 Blood Urea Nitrogen 46 H 9-23 mg/dL Creatinine 5.82 H 0.550-1.02 mg/dL Glomerular Filtration Rate Calc 7 >90 mL/min BUN/Creatinine Ratio 7.9 L 10.0-20.0 Serum Glucose 70 L 74-106 mg/dL Calcium Level 10.3 8.7-10.4 mg/dL Total Bilirubin 0.6 0.2-1.0 mg/dL Aspartate Amino Transferase (AST) 19 13-40 U/L Alanine Aminotransferase (ALT) 20 7-40 U/L Alkaline Phosphatase 120 H 46-116 U/L Total Protein 6.9 5.7-8.2 g/dL Albumin 3.9 3.2-4.8 g/dL Troponin I High Sensitivity 121 *H </=34 ng/L Test 12/14/24 05:24 Range/Units Lipase 32 12-53 U/L Assessment NSTEMI likely type 2 secondary to hyperkalemia Unspecified atrial fibrillation, controlled rate, on low-dose Eliquis Rule out structural heart disease Questionable pelvic malignancy Hypertension Dyslipidemia ESRD on HD with associated hyperkalemia Insulin-dependent diabetes mellitus with hypoglycemic events Obesity Plan/Recommendation (Dr. Laird) Likely NSTEMI type 2 secondary to acute hyperkalemia and hypoglycemic events. Consider adjusting insulin therapy given hypoglycemia. We will continue further cardiac evaluation with a transthoracic echocardiogram to rule out structural heart disease. The patient has no cardiac complaints and is cardiac stable at this time. Monitor ECG changes and notify. Continue Nephrology and home theater expert recommendations. Rest of plan per clinical course. Thank you for allowing us to participate in this patient's care. Please call if you have any questions or concerns. This medical document was created using an electronic medical record system with voice recognition software and computerized dictation system. Although this document has been carefully reviewed, there might still be some phonetic and typographical errors. Occasional wrong-word or ``sound-alike substitutions may have occurred due to the inherent limitations of voice recognition software. These areas are purely typographical due to imperfections of the software programs and do not reflect any compromise in the patient's medical care. Please read the chart carefully and recognize, using context, where these substitutions have occurred. Plan discussed with: Patient, Other NYHA Physical activity limitations: NA Date of Service: December 15, 2024 Billing Provider: YANET MCKEON CERTIFIED NURSES AIDE Cardiology Common Codes: [id number] INP/OBS CARE (High) LEFTY FARIA DO 12/15/24 1938: Date Seen: December 15, 2024 Family History: FH: colon cancer G8 MOTHER FH: heart attack G8 FATHER Allergies: Coded Allergies: Lidocaine (Verified Allergy, Unknown, 12/13/24) Morphine (Verified Allergy, Unknown, 12/13/24) Home Meds Reported Medications Insulin NPH (Human) (Isophane) (Humulin N) 100 Unit/Ml Inj, 21 UNIT SC DAILY, INJ 12/14/24 Insulin NPH (Human) (Isophane) (Humulin N Kwikpen) 100 Unit/Ml Inj, 10 UNIT SC HS 12/14/24 Apixaban Base (ELIQUIS) 2.5 Mg Tab, 1 TAB PO BID 12/14/24 Bumetanide (Bumetanide) 2 Mg Tab, 1 TAB PO BID 12/14/24 Pantoprazole Sodium Sesquihydr (Pantoprazole Sodium) 40 Mg Tab, 1 TAB PO BID 12/14/24 Amlodipine Besylate (Amlodipine Besylate) 5 Mg Tab, 1 TAB PO DAILY 12/14/24 Carvedilol (Carvedilol) 25 Mg Tab, 1 TAB PO BID 12/14/24 Atorvastatin Calcium (ATORVASTATIN CALCIUM) 20 Mg Tab, 1 TAB PO HS 12/14/24 Discontinued Reported Medications Sertraline HCl (Sertraline HCl) 50 Mg Tab, 1 TAB PO DAILY 12/14/24 Plan/Recommendation The patient was discussed with Yanet Mckeon NP. I agree with her Assessment and Plan, which was formulated with me. Type II NSTEMI (demand ischemia) in setting of ESRD on HD. Management as written in Plan. Plan discussed with: Patient Date of Service: December 15, 2024 Billing Provider: LEFTY FARIA DO Cardiology Common Codes: [id number] INP/OBS CARE (High) YANET MCKEON CERTIFIED NURSES AIDE December 15, 2024 15:01 LEFTY FARIA DO December 15, 2024 19:38
[2024-12-15 15:25] LABS: Magnesium 1.8 mg/dL (1.6-2.6)
--- NOTE | 2024-12-15 15:42 | DVHPN2 ---
Progress Note - Dictate Date Seen: December 15, 2024 Medical Necessity Reason Pt with a Central, PICC or Fol: No Subjective Patient complains of pain but she is more awake vital signs Vital Sign Date Time Temp Pulse Resp B/P (MAP) Pulse Ox O2 Delivery O2 Flow Rate FiO2 12/15/24 11:04 140/80 12/15/24 09:00 97.8 102 22 91 97.8 12/15/24 08:05 Nasal Cannula* 2 28 Total Intake and Output 12/14/24 12/14/24 12/15/24 15:00 23:00 07:00 Intake Total 200 ml Output Total 50 ml Balance 150 ml medications Current Medications Medications Dose Ordered Sig/June Route Start Time Stop Time Status Last Admin Dose Admin Sodium Chloride 10 ml Q8HR IV 12/14/24 14:00 12/15/24 14:00 10 ML Acetaminophen/ Hydrocodone Bitart 1 tab Q4HP PRN PO 12/14/24 09:45 12/15/24 11:03 1 TAB Ondansetron HCl 4 mg Q4HP PRN IV 12/14/24 09:45 Docusate Sodium 100 mg BIDPRN PRN PO 12/14/24 09:45 Acetaminophen 650 mg Q6HP PRN PO 12/14/24 09:45 Nitroglycerin 0.4 mg Q5MINP PRN SL 12/14/24 09:45 Morphine Sulfate 2 mg Q30M PRN IV 12/14/24 09:45 Hold Amlodipine Besylate 5 mg DAILY PO 12/14/24 10:00 12/15/24 11:04 5 MG Apixaban 2.5 mg BID PO 12/14/24 10:00 12/15/24 11:05 2.5 MG Atorvastatin Calcium 20 mg HS PO 12/14/24 22:00 12/14/24 23:35 20 MG Pantoprazole Sodium 40 mg BID PO 12/14/24 10:00 12/15/24 11:05 40 MG Sertraline HCl 50 mg DAILY PO 12/14/24 10:00 12/15/24 11:05 50 MG Bumetanide 2 mg BIDD PO 12/14/24 18:00 12/15/24 06:27 2 MG Carvedilol 25 mg BID PO 12/14/24 10:21 Hold Insulin Human NPH 21 units DAILY SC 12/14/24 10:00 Hold Insulin Human NPH 10 units HS SC 12/14/24 22:00 Hold Diagnostic Test (Pha) 1 strip ACHS 12/14/24 11:30 12/15/24 11:26 1 STRIP Insulin Human Regular HS SC 12/14/24 22:00 Insulin Human Regular AC SC 12/14/24 11:30 Dextrose 50 ml UD PRN IV 12/14/24 10:15 12/14/24 17:38 50 ML Vancomycin HCl 0 ml @ 0 mls/hr UD IV 12/14/24 11:00 objective HEENT: No evidence of JVD, no oral ulcers. Pulmonary: Crackles on auscultation bilaterally Cardiovascular S1-S2, no S3 or S4 Abdomen: Bowel sounds positive, soft no rebound tenderness Skin: No rash Neurological: Alert, oriented, no focal weakness Extremities: Trace edema lower extremities Access: Right forearm AV fistula positive bruit and thrill laboratory and microbiology Laboratory Tests 12/15/24 06:57 Test 12/15/24 06:57 Range/Units Serum Glucose 70 L 74-106 mg/dL Assessment/Plan Assessment: 1. End-stage renal disease on hemodialysis Friday via right upper arm AV fistula 2. hyperkalemia 3. altered mental status 4. hypertension 5. diabetes type 2 6. debility plan: Hemodialysis today stat given hyperkalemia maximize UF 2-3 L Offset Pressman has been consulted som for goal hemoglobin 10-11 fluid restriction less than 1 L per day resume phosphate binders once mentation improved Continue Bumex Lokelma p.o. p.r.n. hyperkalemia Cardiology consult thank you very much for allowing us to participate in the care of this patient Plan discussed with: Patient JONAS HERNANDEZ MD December 15, 2024 15:42
[2024-12-15 15:57] LABS: Hepatitis A Ab IgM Negative; Hepatitis B Core IgM Negative (Negative); Hepatitis B Surface Antigen Negative (Negative)
[2024-12-15 15:59] LABS: Hepatitis C Antibody Positive (Negative)
[2024-12-15] MEDS: EPOETIN ALFA-EPBX 10,000 UNIT/1ML VIAL SC ONE (20:50)
--- NOTE | 2024-12-15 23:27 | DVHINCON2 ---
Date of service: December 15, 2024 Referring Physician Miguel Angel Leger MD Reason for Consultation Acute hypoxic respiratory failure, pleural effusion, and ascites. History of Present Illness A 74-year-old woman with past medical history including ESRD on hemodialysis M,W,F, hypertension, CHF, diabetes, hyperlipidemia, atrial fibrillation and anxiety who presented to ED on 12/14/24 with c/o abdominal pain. Patient lives with her daughter. Daughter reports patient was recently hospitalized and then discharged to a SNF for acute rehabilitation on 11/18/2024. She states the patient has been complaining of abdominal pain and was recently diagnosed with GERD. CT scan completed in ER revealed an abdominal mass. Patient was admitted for further care, and pulmonary consultation is requested for evaluation and management of acute hypoxic respiratory failure, pleural effusion, and ascites. Review of Systems: 14-point review of systems negative unless otherwise noted above. Past Medical History: ESRD on hemodialysis M,W,F, hypertension, CHF, diabetes, hyperlipidemia, atrial fibrillation, gastric ulcer, anxiety. Past Surgical History: None Medications: Reviewed. Allergies: Lidocaine and morphine. Family History: LA and colon cancer. Social History: Nonsmoker. No alcohol or illicit drug use. Family History: FH: colon cancer G8 MOTHER FH: heart attack G8 FATHER Allergies: Coded Allergies: Lidocaine (Verified Allergy, Unknown, 12/13/24) Morphine (Verified Allergy, Unknown, 12/13/24) Home Meds Reported Medications Insulin NPH (Human) (Isophane) (Humulin N) 100 Unit/Ml Inj, 21 UNIT SC DAILY, INJ 12/14/24 Insulin NPH (Human) (Isophane) (Humulin N Kwikpen) 100 Unit/Ml Inj, 10 UNIT SC H S 12/14/24 Apixaban Base (ELIQUIS) 2.5 Mg Tab, 1 TAB PO BID 12/14/24 Bumetanide (Bumetanide) 2 Mg Tab, 1 TAB PO BID 12/14/24 Pantoprazole Sodium Sesquihydr (Pantoprazole Sodium) 40 Mg Tab, 1 TAB PO BID 12/14/24 Amlodipine Besylate (Amlodipine Besylate) 5 Mg Tab, 1 TAB PO DAILY 12/14/24 Carvedilol (Carvedilol) 25 Mg Tab, 1 TAB PO BID 12/14/24 Atorvastatin Calcium (ATORVASTATIN CALCIUM) 20 Mg Tab, 1 TAB PO HS 12/14/24 Discontinued Reported Medications Sertraline HCl (Sertraline HCl) 50 Mg Tab, 1 TAB PO DAILY 12/14/24 Vital Signs Vital Signs Date Time Temp Pulse Resp B/P (MAP) Pulse Ox O2 Delivery O2 Flow Rate FiO2 12/15/24 17:52 133/76 12/15/24 17:00 97.7 89 18 90 97.7 12/15/24 08:05 Nasal Cannula* 2 28 Physical Exam Gen.: Patient lying in bed in no apparent distress. On supplemental oxygen. Head: Normocephalic, atraumatic. Eyes: EOMI/PERRLA. Ears: Normal hearing. Normal anatomy. Neck/trachea: Trachea midline, supple. Nose: Normal external anatomy. Mouth: Moist mucous membranes. Chest: Decreased air entry bilaterally. No wheezing or rhonchi. Cardiovascular: Positive S1, positive S2. Regular rate and rhythm. Abdomen: Positive bowel sounds in all 4 quadrants. Soft, non-tender, non- distended. : Deferred. Rectal: Deferred. Skin: Warm, dry. Intact. Extremities: 2+ radial pulses bilaterally. No lower extremity edema. Neuro: Awake, alert, oriented x3. No gross motor or sensory deficits. Cranial nerves II through XII intact. Gait not assessed. Labs/Diagnostic Data Labs Test 12/15/24 21:40 12/15/24 13:37 12/15/24 06:57 12/14/24 08:42 Range/Units POC Glucose 111 H 70-106 mg/dl Random Vancomycin Level 39.5 H 5-10 ug/mL Hepatitis A IgM Antibody Negative Hepatitis B Surface Antigen Negative Negative Hepatitis B Core IgM Antibody Negative Negative Hepatitis C Antibody Positive *A Negative White Blood Count 6.6 4.4-10.8 10^3/uL Red Blood Count 3.00 L 4.0-5.20 10^6/uL Hemoglobin 8.9 L 12.2-16.2 g/dL Hematocrit 28.2 L 36.0-46.0 % Mean Corpuscular Volume 93.9 80.0-100.0 fL Mean Corpuscular Hemoglobin 29.8 28.0-32.0 pg Mean Corpuscular Hemoglobin Concent 31.7 L 32.0-36.0 g/dL Red Cell Distribution Width 18.6 H 11.8-14.3 % Platelet Count 164 140-450 10^3/uL Mean Platelet Volume 8.2 6.9-10.8 fL Neutrophils (%) (Auto) 75.3 37.0-80.0 % Lymphocytes (%) (Auto) 15.4 10.0-50.0 % Monocytes (%) (Auto) 8.0 0.0-12.0 % Eosinophils (%) (Auto) 0.5 0.0-7.0 % Basophils (%) (Auto) 0.8 0.0-2.0 % Neutrophils # (Auto) 5.0 1.6-8.6 10 ^3/uL Lymphocytes # (Auto) 1.0 0.4-5.4 10 ^3/uL Monocytes # (Auto) 0.5 0-1.3 10 ^3/uL Eosinophils # (Auto) 0 0-0.8 10 ^3/uL Basophils # (Auto) 0.1 0-0.2 10 ^3/uL Nucleated Red Blood Cells 0.5 % Sodium Level 140 136-145 mmol/L Potassium Level 6.0 *H 3.5-5.1 mmol/L Chloride Level 99 98-107 mmol/L Carbon Dioxide Level 25 20-31 mmol/L Anion Gap 16 H 5-15 Blood Urea Nitrogen 46 H 9-23 mg/dL Creatinine 5.82 H 0.550-1.02 mg/dL Glomerular Filtration Rate Calc 7 >90 mL/min BUN/Creatinine Ratio 7.9 L 10.0-20.0 Serum Glucose 70 L 74-106 mg/dL Hemoglobin A1c 6.9 H <5.7 % A1C Calcium Level 10.3 8.7-10.4 mg/dL Magnesium Level 1.8 1.6-2.6 mg/dL Total Bilirubin 0.6 0.2-1.0 mg/dL Aspartate Amino Transferase (AST) 19 13-40 U/L Alanine Aminotransferase (ALT) 20 7-40 U/L Alkaline Phosphatase 120 H 46-116 U/L Total Protein 6.9 5.7-8.2 g/dL Albumin 3.9 3.2-4.8 g/dL Triglycerides Level 75 < 150 mg/dL Cholesterol Level 100 < 200 mg/dL LDL Cholesterol 29 < 100 mg/dL HDL Cholesterol 46 40-59 mg/dL Thyroid Stimulating Hormone (TSH) 1.49 0.55-4.78 uIU/mL Troponin I High Sensitivity 121 *H </=34 ng/L Test 12/14/24 05:24 Range/Units Lipase 32 12-53 U/L Assessment Impression: Acute hypoxic respiratory failure Dependence on supplemental oxygen Pleural effusion Ascites Atelectasis Pelvic mass Metabolic encephalopathy End-stage renal disease, on hemodialysis Congestive heart failure Diabetes mellitus type II Plan: Supplemental oxygen 2 LPM NC Titrate to keep O2 sats above 92%. Taper O2 as tolerated. CT abdomen-pelvis on 12/13/24 revealed moderate right pleural effusion with adjacent atelectasis. Moderate volume abdominopelvic ascites. Cardiomegaly. Incentive spirometry On Eliquis Plan for paracentesis due to ascites Plan for right thoracentesis for evacuation of pleural effusion. Obtain consent for procedures. Diurese w/ Bumex as tolerated Monitor renal function. Monitor electrolytes. Supplement as necessary. Monitor ins and outs. DVT prophylaxis. Prognosis: Poor given patient's multiple co-morbidities. Rest of plan per hospitalist and other consultants. Thank you, Dr. Leger, for allowing me to participate in this patient's care. Further recommendations will depend on the patient's clinical course. Please do not hesitate to contact me if you have any questions or concerns. This medical document was created using an electronic medical record system with [employer] dictation system. Although these documentations are being carefully reviewed, there may still be some phonetic and typographical changes. The errors are purely typographical, due to imperfection on the software program, and do not reflect any compromise in the patient's medical care. Plan discussed with: Patient, Daughter DEONDRE ALARCON MD December 15, 2024 23:27
[2024-12-16] VITALS (7 sets, daily range): BP systolic 104–157; BP diastolic 48–67; PULSE 79–95; RESP 15–20; TEMP 97.4–98.2; O2SAT 95–100
--- NOTE | 2024-12-16 11:57 | DVHPN2 ---
Subjective SHE IS STILL COMPLAINING OF ABDOMINAL PAIN Changes from previous H/P or p: Changes Eyes: No Pain, No Vision change, No Conjunctivae inflammation, No Eyelid inflammation, No Other, No Redness ENT: No Ear pain, No Ear discharge, No Nose pain, No Nose discharge, No Nose congestion, No Mouth pain, No Mouth swelling, No Throat pain, No Throat swelling, No Other Cardiovascular: No Chest Pain, No Palpitations, No Orthopnea, No Paroxysmal Noc. Dyspnea, No Edema, No Lt Headedness, No Other Respiratory: No Cough, No Dry, No Shortness of breath, No SOB with excertion, No Wheezing, No Hemoptysis, No Pleuritic Pain, No Sputum, No Other Gastrointestinal: No Nausea, No Vomiting; Abdominal Pain; No Diarrhea, No Constipation, No Melena, No Hematochezia, No Other Genitourinary: No Dysuria, No Frequency, No Incontinence, No Hematuria, No Retention, No Other Skin: No Rash, No Lesions, No Jaundice, No Bruising, No Other Objective Vitals Vital Signs Date Time Temp Pulse Resp B/P (MAP) Pulse Ox O2 Delivery O2 Flow Rate FiO2 12/16/24 05:53 113/52 12/16/24 05:00 97.4 95 16 95 97.4 12/15/24 20:00 Nasal Cannula* 2 28 Intake/Output Intake and Output 12/16/24 07:00 Intake Total 220 ml Output Total 100 ml Balance 120 ml Intake Oral 220 ml Output Urine Total 100 ml General Appearance: Alert, Oriented X3, Cooperative Lungs: Clear to auscultation, Normal air movement Extremities: No edema Medications Current Medications Medications Dose Ordered Sig/June Route Start Time Stop Time Status Last Admin Dose Admin Sodium Chloride 10 ml Q8HR IV 12/14/24 14:00 12/16/24 05:55 10 ML Acetaminophen/ Hydrocodone Bitart 1 tab Q4HP PRN PO 12/14/24 09:45 12/15/24 11:03 1 TAB Ondansetron HCl 4 mg Q4HP PRN IV 12/14/24 09:45 Docusate Sodium 100 mg BIDPRN PRN PO 12/14/24 09:45 Acetaminophen 650 mg Q6HP PRN PO 12/14/24 09:45 Nitroglycerin 0.4 mg Q5MINP PRN SL 12/14/24 09:45 Amlodipine Besylate 5 mg DAILY PO 12/14/24 10:00 12/15/24 11:04 5 MG Apixaban 2.5 mg BID PO 12/14/24 10:00 12/15/24 21:35 2.5 MG Atorvastatin Calcium 20 mg HS PO 12/14/24 22:00 12/14/24 23:35 20 MG Pantoprazole Sodium 40 mg BID PO 12/14/24 10:00 12/15/24 21:35 40 MG Sertraline HCl 50 mg DAILY PO 12/14/24 10:00 12/15/24 11:05 50 MG Bumetanide 2 mg BIDD PO 12/14/24 18:00 12/15/24 17:52 2 MG Carvedilol 25 mg BID PO 12/14/24 10:21 Hold Insulin Human NPH 21 units DAILY SC 12/14/24 10:00 Hold Insulin Human NPH 10 units HS SC 12/14/24 22:00 Hold Diagnostic Test (Pha) 1 strip ACHS 12/14/24 11:30 12/15/24 21:35 1 STRIP Insulin Human Regular HS SC 12/14/24 22:00 Insulin Human Regular AC SC 12/14/24 11:30 Dextrose 50 ml UD PRN IV 12/14/24 10:15 12/14/24 17:38 50 ML Laboratory Results Laboratory Tests 12/15/24 06:57 Assessment/Plan Assessment/Plan Acute metabolic encephalopathy Abdominal pain Pelvic mass rule out fibroid tumor Right pleural effusion End-stage renal disease on hemodialysis Hyperkalemia Atrial fibrillation Hypertension Dyslipidemia Type 2 diabetes Chronic anemia of chronic kidney disease Elevated troponin, NSTEMI type 2 Plan Nephrology for dialysis Order a pelvic ultrasound to rule out uterine fibroid tumor Log Clerk consult Consult Dr. Fried for pleural effusion for possible thoracentesis Bumex Lokelma for hyperkalemia Not stable for transfer Full code Monitor closely NSTEMI: Consult Cardiology Echo Monitor closely 12/16/2024: Abdominal pain: The patient needs a paracentesis Pleural effusion, scheduled for thoracentesis today Log Clerk saw the patient, no further intervention is needed Continue Bumex Labs are still pending today Hemodialysis per nephrology NSTEMI type 2, she was seen by Cardiology continue medical management Monitor closely Not stable for transfer Plan discussed with: Patient My Orders Orders - LORIN LUCAS MD Procedure Category Date Status Time *Consult CONS 12/15/24 Transmitted / 13:19 Comprehensive LAB 12/16/24 Logged Metabolic Panel 04:00 Complete Blood Count LAB 12/16/24 Logged 04:00 Magnesium LAB 12/16/24 Logged 04:00 * Cardiology Consult CONS 12/15/24 Transmitted 13:45 * Sub Acute Care Nurse Consultation CONS 12/15/24 Transmitted 13:47 Echo 2d Mode Cardiac US 12/16/24 Logged DOP 13:23 Date of Service: December 16, 2024 Billing Provider: LORIN LUCAS MD Common Visit Codes: [id number] INP/OBS CARE(HIGH) LORIN LUCAS MD December 16, 2024 11:57
--- NOTE | 2024-12-16 12:03 | DVHPN2 ---
Consult Progress Note Date Seen: December 16, 2024 Objective vital signs Vital Sign Date Time Temp Pulse Resp B/P (MAP) Pulse Ox O2 Delivery O2 Flow Rate FiO2 12/16/24 05:53 113/52 12/16/24 05:00 97.4 95 16 95 97.4 12/15/24 20:00 Nasal Cannula* 2 28 Total Intake and Output 12/15/24 12/15/24 12/16/24 14:59 22:59 06:59 Intake Total 120 ml 100 ml Output Total 50 ml 50 ml Balance 70 ml 50 ml medications Current Medications Medications Dose Ordered Sig/June Route Start Time Stop Time Status Last Admin Dose Admin Sodium Chloride 10 ml Q8HR IV 12/14/24 14:00 12/16/24 05:55 10 ML Acetaminophen/ Hydrocodone Bitart 1 tab Q4HP PRN PO 12/14/24 09:45 12/15/24 11:03 1 TAB Ondansetron HCl 4 mg Q4HP PRN IV 12/14/24 09:45 Docusate Sodium 100 mg BIDPRN PRN PO 12/14/24 09:45 Acetaminophen 650 mg Q6HP PRN PO 12/14/24 09:45 Nitroglycerin 0.4 mg Q5MINP PRN SL 12/14/24 09:45 Amlodipine Besylate 5 mg DAILY PO 12/14/24 10:00 12/15/24 11:04 5 MG Apixaban 2.5 mg BID PO 12/14/24 10:00 12/15/24 21:35 2.5 MG Atorvastatin Calcium 20 mg HS PO 12/14/24 22:00 12/14/24 23:35 20 MG Pantoprazole Sodium 40 mg BID PO 12/14/24 10:00 12/15/24 21:35 40 MG Sertraline HCl 50 mg DAILY PO 12/14/24 10:00 12/15/24 11:05 50 MG Bumetanide 2 mg BIDD PO 12/14/24 18:00 12/15/24 17:52 2 MG Carvedilol 25 mg BID PO 12/14/24 10:21 Hold Insulin Human NPH 21 units DAILY SC 12/14/24 10:00 Hold Insulin Human NPH 10 units HS SC 12/14/24 22:00 Hold Diagnostic Test (Pha) 1 strip ACHS 5/6/25 11:30 12/15/24 21:35 1 STRIP Insulin Human Regular HS SC 12/14/24 22:00 Insulin Human Regular AC SC 12/14/24 11:30 Dextrose 50 ml UD PRN IV 12/14/24 10:15 12/14/24 17:38 50 ML Examination: GENERAL:Abnormal, LUNGS:Abnormal, CVS:Normal, NEURO:Abnormal laboratory and microbiology Laboratory Tests 12/15/24 06:57 Test 12/15/24 06:57 Range/Units Serum Glucose 70 L 74-106 mg/dL Problem List/Assessment/Plan Problem List/Assessment/Plan NSTEMI likely type 2 secondary to hyperkalemia Unspecified atrial fibrillation, controlled rate, on low-dose Eliquis Rule out structural heart disease Questionable pelvic malignancy Hypertension Dyslipidemia ESRD on HD with associated hyperkalemia Insulin-dependent diabetes mellitus with hypoglycemic events Obesity Plan/Recommendation (Dr. Harris) Likely NSTEMI type 2 secondary to acute hyperkalemia and hypoglycemic events. Refusing transthoracic echocardiogram multiple times, can follow as outpatient. The patient has no cardiac complaints and is cardiac stable at this time. Continue Nephrology and spiral gear generator recommendations. There is no further cardiac work- up indicated at this time. Kindly call if in need to re-consult. Thank you for allowing us to participate in this patient's care. This medical document was created using an electronic medical record system with voice recognition software and computerized dictation system. Although this document has been carefully reviewed, there might still be some phonetic and typographical errors. Occasional wrong-word or ``sound-alike substitutions may have occurred due to the inherent limitations of voice recognition software. These areas are purely typographical due to imperfections of the software programs and do not reflect any compromise in the patient's medical care. Please read the chart carefully and recognize, using context, where these substitutions have occurred. Plan discussed with: Other Date of Service: December 16, 2024 Billing Provider: MACHELLE MCKEON Cardiology Common Codes: [id number] INP/OBS CARE(Mod) MACHELLE MCKEON December 16, 2024 12:03
--- NOTE | 2024-12-16 12:30 | DVHINCON2 ---
Date of service: December 16, 2024 Referring Physician hospitalist Reason for Consultation vag bleeding History of Present Illness pt is admitted for abd pain noted to have blood in urine.she has kidney ds and is on dialysis pt denies vag bleeding and last pap was 3 yrs ago, Past Medical History afib,dm,chf,htn,kidney ds Past Surgical History csx4,stent placement Family History dm Social History na,csx4 Patient Family History: FH: colon cancer G8 MOTHER FH: heart attack G8 FATHER Allergies: Coded Allergies: Lidocaine (Verified Allergy, Unknown, 12/13/24) Morphine (Verified Allergy, Unknown, 12/13/24) Home Meds Reported Medications Insulin NPH (Human) (Isophane) (Humulin N) 100 Unit/Ml Inj, 21 UNIT SC DAILY, INJ 12/14/24 Insulin NPH (Human) (Isophane) (Humulin N Kwikpen) 100 Unit/Ml Inj, 10 UNIT SC HS 12/14/24 Apixaban Base (ELIQUIS) 2.5 Mg Tab, 1 TAB PO BID 12/14/24 Bumetanide (Bumetanide) 2 Mg Tab, 1 TAB PO BID 12/14/24 Pantoprazole Sodium Sesquihydr (Pantoprazole Sodium) 40 Mg Tab, 1 TAB PO BID 12/14/24 Amlodipine Besylate (Amlodipine Besylate) 5 Mg Tab, 1 TAB PO DAILY 12/14/24 Carvedilol (Carvedilol) 25 Mg Tab, 1 TAB PO BID 12/14/24 Atorvastatin Calcium (ATORVASTATIN CALCIUM) 20 Mg Tab, 1 TAB PO HS 12/14/24 Discontinued Reported Medications Sertraline HCl (Sertraline HCl) 50 Mg Tab, 1 TAB PO DAILY 12/14/24 Review of Systems Constitutional: no fever, chill, weight loss HEENT: no eye pain, no hearing loss, no oral lesion, no scleral icterus Heart: no chest pain, no chest pressure Lung: no cough, no dyspnea with exertion Abdomen: see HPI : no pain with urination, normal appearing urine Musculoskeletal: no joint pain, no muscle pain Neurological: no seizure, no loss of sensation, no weakness in extremities Pysch: no depression, no anxiety Derm: no rash, no jaundice Vital Signs Vital Signs Date Time Temp Pulse Resp B/P (MAP) Pulse Ox O2 Delivery O2 Flow Rate FiO2 12/16/24 05:53 113/52 12/16/24 05:00 97.4 95 16 95 97.4 12/15/24 20:00 Nasal Cannula* 2 28 Physical Exam SKIN: [pale] HEENT: nl NECK: [nl] CARDIAC: rrr PULMONARY: [cta] ABDOMEN: [nt,obese] MUSCULOSKELETAL: [nl] NEURO: [nlpelvic- ext geniatalia nl,vag atrophic,cx atrophic ,uterus nl size,adenxa nl] Labs/Diagnostic Data Labs Test 12/15/24 21:40 12/15/24 13:37 12/15/24 06:57 12/14/24 08:42 Range/Units POC Glucose 111 H 70-106 mg/dl Random Vancomycin Level 39.5 H 5-10 ug/mL Hepatitis A IgM Antibody Negative Hepatitis B Surface Antigen Negative Negative Hepatitis B Core IgM Antibody Negative Negative Hepatitis C Antibody Positive *A Negative White Blood Count 6.6 4.4-10.8 10^3/uL Red Blood Count 3.00 L 4.0-5.20 10^6/uL Hemoglobin 8.9 L 12.2-16.2 g/dL Hematocrit 28.2 L 36.0-46.0 % Mean Corpuscular Volume 93.9 80.0-100.0 fL Mean Corpuscular Hemoglobin 29.8 28.0-32.0 pg Mean Corpuscular Hemoglobin Concent 31.7 L 32.0-36.0 g/dL Red Cell Distribution Width 18.6 H 11.8-14.3 % Platelet Count 164 140-450 10^3/uL Mean Platelet Volume 8.2 6.9-10.8 fL Neutrophils (%) (Auto) 75.3 37.0-80.0 % Lymphocytes (%) (Auto) 15.4 10.0-50.0 % Monocytes (%) (Auto) 8.0 0.0-12.0 % Eosinophils (%) (Auto) 0.5 0.0-7.0 % Basophils (%) (Auto) 0.8 0.0-2.0 % Neutrophils # (Auto) 5.0 1.6-8.6 10 ^3/uL Lymphocytes # (Auto) 1.0 0.4-5.4 10 ^3/uL Monocytes # (Auto) 0.5 0-1.3 10 ^3/uL Eosinophils # (Auto) 0 0-0.8 10 ^3/uL Basophils # (Auto) 0.1 0-0.2 10 ^3/uL Nucleated Red Blood Cells 0.5 % Sodium Level 140 136-145 mmol/L Potassium Level 6.0 *H 3.5-5.1 mmol/L Chloride Level 99 98-107 mmol/L Carbon Dioxide Level 25 20-31 mmol/L Anion Gap 16 H 5-15 Blood Urea Nitrogen 46 H 9-23 mg/dL Creatinine 5.82 H 0.550-1.02 mg/dL Glomerular Filtration Rate Calc 7 >90 mL/min BUN/Creatinine Ratio 7.9 L 10.0-20.0 Serum Glucose 70 L 74-106 mg/dL Hemoglobin A1c 6.9 H <5.7 % A1C Calcium Level 10.3 8.7-10.4 mg/dL Magnesium Level 1.8 1.6-2.6 mg/dL Total Bilirubin 0.6 0.2-1.0 mg/dL Aspartate Amino Transferase (AST) 19 13-40 U/L Alanine Aminotransferase (ALT) 20 7-40 U/L Alkaline Phosphatase 120 H 46-116 U/L Total Protein 6.9 5.7-8.2 g/dL Albumin 3.9 3.2-4.8 g/dL Triglycerides Level 75 < 150 mg/dL Cholesterol Level 100 < 200 mg/dL LDL Cholesterol 29 < 100 mg/dL HDL Cholesterol 46 40-59 mg/dL Thyroid Stimulating Hormone (TSH) 1.49 0.55-4.78 uIU/mL Troponin I High Sensitivity 121 *H </=34 ng/L Test 12/14/24 05:24 Range/Units Lipase 32 12-53 U/L Primary Diagnosis abdominal pain 2' Diagnosis/Comorbidities no evidence of postmenopausal bleeding Plan fu out pt with orla for pap will sign off thank you Plan discussed with: Patient Visit Coding OBGYN Date of Service: December 16, 2024 Billing Provider: VANITA DARBY DO ADVERTISING ANALYST Common Visit Codes: [id number] SAME DATE (HIGH) ADVERTISING ANALYST Consultation Codes: [id number]/[id number] INPATIENT CONSULT (LOW) VANITA DARBY DO December 16, 2024 12:30
[2024-12-16] MEDS: MAGNESIUM SULFATE 1GM/100ML 100 ML IV ONE (14:09)
[2024-12-16 14:58] LABS: Alanine Aminotransferase 12 U/L (7-40); Albumin 3.8 g/dL (3.2-4.8); Alkaline Phosphatase 107 U/L (46-116); Anion Gap 14 (5-15); Aspartate Aminotransferase 14 U/L (13-40); Calcium 9.8 mg/dL (8.7-10.4); Carbon Dioxide 26 mmol/L (20-31); Chloride 100 mmol/L (98-107); Magnesium 1.9 mg/dL (1.6-2.6); Sodium 140 mmol/L (136-145); Total Protein 6.7 g/dL (5.7-8.2)
[2024-12-16 14:59] LABS: Bilirubin, Total 0.5 mg/dL (0.2-1.0); Blood Urea Nitrogen 40 mg/dL (9-23); Glucose 159 mg/dL (74-106); Potassium 5.3 mmol/L (3.5-5.1)
[2024-12-16 15:02] LABS: Basophils # (auto) 0 10 ^3/uL (0-0.2); Basophils % (auto) 0.2 % (0.0-2.0); Eosinophils # (auto) 0 10 ^3/uL (0-0.8); Eosinophils % (auto) 0.4 % (0.0-7.0); Hematocrit 26.5 % (36.0-46.0); Hemoglobin 8.2 g/dL (12.2-16.2); Lymphocytes # (auto) 0.9 10 ^3/uL (0.4-5.4); Mean Corpuscular Hemoglobin 29.4 pg (28.0-32.0); Mean Corpuscular Volume 94.7 fL (80.0-100.0); Monocytes # (auto) 0.6 10 ^3/uL (0-1.3); Monocytes % (auto) 11.1 % (0.0-12.0); Neutrophils # (auto) 4.1 10 ^3/uL (1.6-8.6); Neutrophils % (auto) 72.3 % (37.0-80.0); Nucleated Red Blood Cells % 0.8 %; Platelet Count (auto) 138 10^3/uL (140-450); Red Cell Distribution Width 19.4 % (11.8-14.3); White Blood Cell 5.7 10^3/uL (4.4-10.8)
[2024-12-16 15:09] LABS: INR 1.5 (0.9-1.15); Prothrombin Time 15.3 sec (9.3-11.8)
--- NOTE | 2024-12-16 17:56 | DVHPN2 ---
Progress Note - Dictate Date Seen: December 16, 2024 Medical Necessity Reason Pt with a Central, PICC or Fol: No Subjective Patient is more awake complains of generalized weakness. vital signs Vital Sign Date Time Temp Pulse Resp B/P (MAP) Pulse Ox O2 Delivery O2 Flow Rate FiO2 12/16/24 13:39 121/51 12/16/24 13:00 98.2 79 20 98 98.2 12/16/24 08:00 Nasal Cannula* 2 28 Total Intake and Output 12/15/24 12/15/24 12/16/24 15:00 23:00 07:00 Intake Total 120 ml 100 ml Output Total 50 ml 50 ml Balance 70 ml 50 ml medications Current Medications Medications Dose Ordered Sig/June Route Start Time Stop Time Status Last Admin Dose Admin Sodium Chloride 10 ml Q8HR IV 12/14/24 14:00 12/16/24 14:10 10 ML Acetaminophen/ Hydrocodone Bitart 1 tab Q4HP PRN PO 12/14/24 09:45 12/15/24 11:03 1 TAB Ondansetron HCl 4 mg Q4HP PRN IV 12/14/24 09:45 Docusate Sodium 100 mg BIDPRN PRN PO 12/14/24 09:45 Acetaminophen 650 mg Q6HP PRN PO 12/14/24 09:45 Nitroglycerin 0.4 mg Q5MINP PRN SL 12/14/24 09:45 Amlodipine Besylate 5 mg DAILY PO 12/14/24 10:00 12/16/24 13:39 5 MG Apixaban 2.5 mg BID PO 12/14/24 10:00 12/15/24 21:35 2.5 MG Atorvastatin Calcium 20 mg HS PO 12/14/24 22:00 12/14/24 23:35 20 MG Pantoprazole Sodium 40 mg BID PO 12/14/24 10:00 12/16/24 13:39 40 MG Sertraline HCl 50 mg DAILY PO 12/14/24 10:00 12/16/24 13:38 50 MG Bumetanide 2 mg BIDD PO 12/14/24 18:00 12/15/24 17:52 2 MG Carvedilol 25 mg BID PO 12/14/24 10:21 Hold Insulin Human NPH 21 units DAILY SC 12/14/24 10:00 Hold Insulin Human NPH 10 units HS SC 12/14/24 22:00 Hold Diagnostic Test (Pha) 1 strip ACHS 12/14/24 11:30 12/16/24 11:30 1 STRIP Insulin Human Regular HS SC 12/14/24 22:00 Insulin Human Regular AC SC 12/14/24 11:30 Dextrose 50 ml UD PRN IV 12/14/24 10:15 12/14/24 17:38 50 ML objective HEENT: No evidence of JVD, no oral ulcers. Pulmonary: Diminished on auscultation bilaterally Cardiovascular S1-S2, no S3 or S4 Abdomen: Bowel sounds positive, soft no rebound tenderness Skin: No rash Neurological: Alert, oriented, no focal weakness Extremities: Trace edema lower extremities Access: Right forearm AV fistula positive bruit and thrill laboratory and microbiology Laboratory Tests 12/16/24 14:22 Test 12/16/24 14:22 Range/Units Serum Glucose 159 H 74-106 mg/dL Assessment/Plan Assessment: 1. End-stage renal disease on hemodialysis Friday via right upper arm AV fistula 2. Hyperkalemia 3. Fluid overload 4. Hypertension 5. Diabetes type 2 6. Generalized weak 7. Altered mental status Plan and recommendations Hemodialysis was done yesterday. We will plan for tomorrow Thoracentesis, paracentesis Professional Poker Player has been consulted appreciated som for goal hemoglobin 10-11 fluid restriction less than 1 L per day resume phosphate binders once mentation improved Continue Bumex Cardiology consult thank you very much for allowing us to participate in the care of this patient Plan discussed with: Patient JONAS HERNANDEZ MD December 16, 2024 17:56
[2024-12-16] MEDS: SODIUM ZIRCONIUM CYCL 10 GM PAK PO ONE (18:56)
[2024-12-16] MEDS: ONDANSETRON HCL 4 MG/2 ML VIAL IV PRN (23:26)
--- NOTE | 2024-12-16 23:47 | DVHPN2 ---
Progress Note - Dictate Date Seen: December 16, 2024 Medical Necessity Reason Pt with a Central, PICC or Fol: Yes The following are medically ne: [place] Catheter Reason for [place] catheter: Strict I&O Subjective Patient seen and examined at bedside. On room air Overnight events reviewed. vital signs Vital Sign Date Time Temp Pulse Resp B/P (MAP) Pulse Ox O2 Delivery O2 Flow Rate FiO2 12/16/24 18:58 80 157/67 (97) 96 12/16/24 13:00 98.2 20 98.2 12/16/24 08:00 Nasal Cannula* 2 28 Total Intake and Output 12/15/24 12/15/24 12/16/24 15:00 23:00 07:00 Intake Total 120 ml 100 ml Output Total 50 ml 50 ml Balance 70 ml 50 ml medications Current Medications Medications Dose Ordered Sig/June Route Start Time Stop Time Status Last Admin Dose Admin Sodium Chloride 10 ml Q8HR IV 12/14/24 14:00 12/16/24 22:37 10 ML Acetaminophen/ Hydrocodone Bitart 1 tab Q4HP PRN PO 12/14/24 09:45 12/16/24 23:27 1 TAB Ondansetron HCl 4 mg Q4HP PRN IV 12/14/24 09:45 12/16/24 23:26 4 MG Docusate Sodium 100 mg BIDPRN PRN PO 12/14/24 09:45 Acetaminophen 650 mg Q6HP PRN PO 12/14/24 09:45 Nitroglycerin 0.4 mg Q5MINP PRN SL 12/14/24 09:45 Amlodipine Besylate 5 mg DAILY PO 12/14/24 10:00 12/16/24 13:39 5 MG Apixaban 2.5 mg BID PO 12/14/24 10:00 12/15/24 21:35 2.5 MG Atorvastatin Calcium 20 mg HS PO 12/14/24 22:00 12/16/24 22:36 20 MG Pantoprazole Sodium 40 mg BID PO 12/14/24 10:00 12/16/24 22:37 40 MG Sertraline HCl 50 mg DAILY PO 12/14/24 10:00 12/16/24 13:38 50 MG Bumetanide 2 mg BIDD PO 12/14/24 18:00 12/16/24 18:55 2 MG Carvedilol 25 mg BID PO 12/14/24 10:21 Hold Insulin Human NPH 21 units DAILY SC 12/14/24 10:00 Hold Insulin Human NPH 10 units HS SC 12/14/24 22:00 Hold Diagnostic Test (Pha) 1 strip ACHS 12/14/24 11:30 12/16/24 22:37 1 STRIP Insulin Human Regular HS SC 12/14/24 22:00 12/16/24 23:11 6 UNITS Insulin Human Regular AC SC 12/14/24 11:30 12/16/24 19:10 3 UNITS Dextrose 50 ml UD PRN IV 12/14/24 10:15 12/14/24 17:38 50 ML objective Gen.: Patient lying in bed in no apparent distress. On room air. Head: Normocephalic, atraumatic. Eyes: EOMI/PERRLA. Ears: Normal hearing. Normal anatomy. Neck/trachea: Trachea midline, supple. Nose: Normal external anatomy. Mouth: Moist mucous membranes. Chest: Decreased air entry bilaterally. No wheezing or rhonchi. Cardiovascular: Positive S1, positive S2. Regular rate and rhythm. Abdomen: Positive bowel sounds in all 4 quadrants. Soft, non-tender, non- distended. : Deferred. Rectal: Deferred. Skin: Warm, dry. Intact. Extremities: 2+ radial pulses bilaterally. No lower extremity edema. Neuro: Awake, alert, oriented x3. No gross motor or sensory deficits. Cranial nerves II through XII intact. Gait not assessed. laboratory and microbiology Laboratory Tests 12/16/24 14:22 Test 12/16/24 14:22 Range/Units Serum Glucose 159 H 74-106 mg/dL Assessment/Plan Impression: Acute hypoxic respiratory failure Pleural effusion Ascites Atelectasis Pelvic mass Metabolic encephalopathy End-stage renal disease, on hemodialysis Congestive heart failure Diabetes mellitus type II Events: On room air Supplemental oxygen PRN In no distress. Patient is confused 1:1 sitter at bedside. She is combative and restless. Deferred procedure. Incentive spirometry Protonix for GI prophylaxis Accu-Cheks, ISS Pain control Avoid oversedation HD per Nephrology Diurese w/ Bumex as tolerated Monitor renal function. Monitor electrolytes. Supplement as necessary. Patient refusing echo - f/u for echo as outpatient. Cardiology recs appreciated Labs and imaging reviewed. Rest of plan as noted below. Plan: Supplemental oxygen PRN Titrate to keep O2 sats above 92%. Incentive spirometry On Eliquis Plan for paracentesis due to ascites Plan for right thoracentesis for evacuation of pleural effusion. Diurese w/ Bumex as tolerated Monitor renal function. Monitor electrolytes. Supplement as necessary. Monitor ins and outs. GI/DVT prophylaxis. Prognosis: Poor given patient's multiple co-morbidities. Rest of plan per hospitalist and other consultants. Thank you, Dr. Leger, for allowing me to participate in this patient's care. Further recommendations will depend on the patient's clinical course. Please do not hesitate to contact me if you have any questions or concerns. This medical document was created using an electronic medical record system with [employer] computerized dictation system. Although these documentations are being carefully reviewed, there may still be some phonetic and typographical changes. The errors are purely typographical, due to imperfection on the software program, and do not reflect any compromise in the patient's medical care. Plan discussed with: Other (RACHEL Conti) DEONDRE ALARCON MD December 16, 2024 23:47
[2024-12-17] VITALS (8 sets, daily range): BP systolic 106–131; BP diastolic 43–62; PULSE 81–93; RESP 16–20; TEMP 97.2–98.1; O2SAT 94–98
[2024-12-17 06:46] LABS: % Iron Saturation 43.8 % (15-50)
[2024-12-17 06:49] LABS: Basophils # (auto) 0 10 ^3/uL (0-0.2); Basophils % (auto) 0.5 % (0.0-2.0); Eosinophils # (auto) 0.1 10 ^3/uL (0-0.8); Eosinophils % (auto) 0.9 % (0.0-7.0); Hematocrit 26.7 % (36.0-46.0); Hemoglobin 8.5 g/dL (12.2-16.2); Lymphocytes # (auto) 0.9 10 ^3/uL (0.4-5.4); Lymphocytes % (auto) 14.7 % (10.0-50.0); Mean Corpuscular Hemoglobin 29.5 pg (28.0-32.0); Mean Corpuscular Hgb Conc. 31.9 g/dL (32.0-36.0); Mean Corpuscular Volume 92.4 fL (80.0-100.0); Monocytes # (auto) 0.7 10 ^3/uL (0-1.3); Monocytes % (auto) 11.6 % (0.0-12.0); Neutrophils # (auto) 4.4 10 ^3/uL (1.6-8.6); Neutrophils % (auto) 72.3 % (37.0-80.0); Nucleated Red Blood Cells % 1.1 %; Platelet Count (auto) 156 10^3/uL (140-450); Red Blood Cells 2.89 10^6/uL (4.0-5.20); Red Cell Distribution Width 18.7 % (11.8-14.3); White Blood Cell 6.1 10^3/uL (4.4-10.8)
[2024-12-17 06:54] LABS: Alanine Aminotransferase 14 U/L (7-40); Albumin 3.9 g/dL (3.2-4.8); Alkaline Phosphatase 113 U/L (46-116); Anion Gap 14 (5-15); BUN/Creatinine Ratio 7.4 (10.0-20.0); Calcium 10.1 mg/dL (8.7-10.4); Carbon Dioxide 27 mmol/L (20-31); Chloride 98 mmol/L (98-107); Glucose 100 mg/dL (74-106); Magnesium 1.9 mg/dL (1.6-2.6); Potassium 4.9 mmol/L (3.5-5.1); Sodium 139 mmol/L (136-145); Total Protein 6.8 g/dL (5.7-8.2)
[2024-12-17 06:55] LABS: Bilirubin, Total 0.5 mg/dL (0.2-1.0)
[2024-12-17 06:56] LABS: Aspartate Aminotransferase 9 U/L (13-40); Blood Urea Nitrogen 46 mg/dL (9-23)
--- NOTE | 2024-12-17 14:56 | DVHPN2 ---
Progress Note - Dictate Date Seen: December 17, 2024 Medical Necessity Reason Pt with a Central, PICC or Fol: Yes The following are medically ne: [place] Catheter Reason for [place] catheter: Strict I&O Subjective Patient overall feeling better. vital signs Vital Sign Date Time Temp Pulse Resp B/P (MAP) Pulse Ox O2 Delivery O2 Flow Rate FiO2 12/17/24 13:00 97.2 81 18 118/57 (77) 95 97.2 12/17/24 08:05 Nasal Cannula* 2 28 Total Intake and Output 12/16/24 12/16/24 12/17/24 15:00 23:00 07:00 Intake Total 500 ml 600 ml Output Total 100 ml 100 ml Balance 400 ml 500 ml medications Current Medications Medications Dose Ordered Sig/June Route Start Time Stop Time Status Last Admin Dose Admin Sodium Chloride 10 ml Q8HR IV 12/14/24 14:00 12/17/24 05:03 10 ML Acetaminophen/ Hydrocodone Bitart 1 tab Q4HP PRN PO 12/14/24 09:45 12/17/24 05:15 1 TAB Ondansetron HCl 4 mg Q4HP PRN IV 12/14/24 09:45 12/17/24 05:16 4 MG Docusate Sodium 100 mg BIDPRN PRN PO 12/14/24 09:45 Acetaminophen 650 mg Q6HP PRN PO 12/14/24 09:45 Nitroglycerin 0.4 mg Q5MINP PRN SL 12/14/24 09:45 Amlodipine Besylate 5 mg DAILY PO 12/14/24 10:00 12/17/24 09:42 5 MG Apixaban 2.5 mg BID PO 12/14/24 10:00 12/15/24 21:35 2.5 MG Atorvastatin Calcium 20 mg HS PO 12/14/24 22:00 12/16/24 22:36 20 MG Pantoprazole Sodium 40 mg BID PO 12/14/24 10:00 12/17/24 09:42 40 MG Sertraline HCl 50 mg DAILY PO 12/14/24 10:00 12/17/24 09:42 50 MG Bumetanide 2 mg BIDD PO 12/14/24 18:00 12/17/24 05:31 2 MG Carvedilol 25 mg BID PO 12/14/24 10:21 Hold Insulin Human NPH 21 units DAILY SC 12/14/24 10:00 Hold Insulin Human NPH 10 units HS SC 12/14/24 22:00 Hold Diagnostic Test (Pha) 1 strip ACHS 12/14/24 11:30 12/17/24 11:30 1 STRIP Insulin Human Regular HS SC 12/14/24 22:00 12/16/24 23:11 6 UNITS Insulin Human Regular AC SC 12/14/24 11:30 12/16/24 19:10 3 UNITS Dextrose 50 ml UD PRN IV 12/14/24 10:15 12/14/24 17:38 50 ML objective HEENT: No evidence of JVD, no oral ulcers. Pulmonary: Diminished on auscultation bilaterally Cardiovascular S1-S2, no S3 or S4 Abdomen: Bowel sounds positive, soft no rebound tenderness Skin: No rash Neurological: Alert, oriented, no focal weakness Extremities: Trace edema lower extremities Access: Right forearm AV fistula positive bruit and thrill laboratory and microbiology Laboratory Tests 12/17/24 06:02 Test 12/17/24 06:02 Range/Units Serum Glucose 100 74-106 mg/dL Assessment/Plan Assessment: 1. End-stage renal disease on hemodialysis Friday via right upper arm AV fistula 2. Hyperkalemia 3. Fluid overload 4. Hypertension 5. Diabetes type 2 6. Generalized weak 7. Altered mental status Plan and recommendations Hemodialysis today Thoracentesis, paracentesis Estate Tax Examiner has been consulted appreciated som for goal hemoglobin 10-11 fluid restriction less than 1 L per day resume phosphate binders once mentation improved Continue Bumex Cardiology consult thank you very much for allowing us to participate in the care of this patient Dietary Evaluation Review Comments: 1. Nephro-helen 1 tab daily 2. CCHO 60 + renal diet 3. Nepro Carb Steady 240ml daily (ordered per ONS protocol) 4. Continue current plan of care Expected Outcomes/Goals: Pt will meet 75% estimated needs Fu 3-5 days Plan discussed with: Patient JONAS HERNANDEZ MD December 17, 2024 14:56
--- NOTE | 2024-12-17 17:17 | DVHPN2 ---
Subjective No new complaints Scheduled for thoracentesis and paracentesis Changes from previous H/P or p: Changes Eyes: No Pain, No Vision change, No Conjunctivae inflammation, No Eyelid inflammation, No Other, No Redness ENT: No Ear pain, No Ear discharge, No Nose pain, No Nose discharge, No Nose congestion, No Mouth pain, No Mouth swelling, No Throat pain, No Throat swelling, No Other Cardiovascular: No Chest Pain, No Palpitations, No Orthopnea, No Paroxysmal Noc. Dyspnea, No Edema, No Lt Headedness, No Other Respiratory: No Cough, No Dry, No Shortness of breath, No SOB with excertion, No Wheezing, No Hemoptysis, No Pleuritic Pain, No Sputum, No Other Gastrointestinal: No Nausea, No Vomiting; Abdominal Pain; No Diarrhea, No Constipation, No Melena, No Hematochezia, No Other Genitourinary: No Dysuria, No Frequency, No Incontinence, No Hematuria, No Retention, No Other Skin: No Rash, No Lesions, No Jaundice, No Bruising, No Other Objective Vitals Vital Signs Date Time Temp Pulse Resp B/P (MAP) Pulse Ox O2 Delivery O2 Flow Rate FiO2 12/17/24 16:34 97.4 93 19 121/62 (81) 94 97.4 12/17/24 08:05 Nasal Cannula* 2 28 Intake/Output Intake and Output 12/17/24 07:00 Intake Total 1100 ml Output Total 200 ml Balance 900 ml Intake Oral 1000 ml IV Total 100 ml Output Urine Total 200 ml General Appearance: Alert, Oriented X3, Cooperative Lungs: Clear to auscultation, Normal air movement Extremities: No edema Medications Current Medications Medications Dose Ordered Sig/June Route Start Time Stop Time Status Last Admin Dose Admin Sodium Chloride 10 ml Q8HR IV 12/14/24 14:00 12/17/24 16:30 10 ML Acetaminophen/ Hydrocodone Bitart 1 tab Q4HP PRN PO 12/14/24 09:45 12/17/24 05:15 1 TAB Ondansetron HCl 4 mg Q4HP PRN IV 12/14/24 09:45 12/17/24 05:16 4 MG Docusate Sodium 100 mg BIDPRN PRN PO 12/14/24 09:45 Acetaminophen 650 mg Q6HP PRN PO 12/14/24 09:45 Nitroglycerin 0.4 mg Q5MINP PRN SL 12/14/24 09:45 Amlodipine Besylate 5 mg DAILY PO 12/14/24 10:00 12/17/24 09:42 5 MG Apixaban 2.5 mg BID PO 12/14/24 10:00 12/15/24 21:35 2.5 MG Atorvastatin Calcium 20 mg HS PO 12/14/24 22:00 12/16/24 22:36 20 MG Pantoprazole Sodium 40 mg BID PO 12/14/24 10:00 12/17/24 09:42 40 MG Sertraline HCl 50 mg DAILY PO 12/14/24 10:00 12/17/24 09:42 50 MG Bumetanide 2 mg BIDD PO 12/14/24 18:00 12/17/24 05:31 2 MG Carvedilol 25 mg BID PO 12/14/24 10:21 Hold Insulin Human NPH 21 units DAILY SC 12/14/24 10:00 Hold Insulin Human NPH 10 units HS SC 12/14/24 22:00 Hold Diagnostic Test (Pha) 1 strip ACHS 12/14/24 11:30 12/17/24 16:30 1 STRIP Insulin Human Regular HS SC 12/14/24 22:00 12/16/24 23:11 6 UNITS Insulin Human Regular AC SC 12/14/24 11:30 12/16/24 19:10 3 UNITS Dextrose 50 ml UD PRN IV 12/14/24 10:15 12/14/24 17:38 50 ML Laboratory Results Laboratory Tests 12/17/24 06:02 Chemistry Test 12/17/24 06:02 Albumin 3.9 g/dL (3.2-4.8) Calcium Level 10.1 mg/dL (8.7-10.4) Magnesium Level 1.9 mg/dL (1.6-2.6) Total Protein 6.8 g/dL (5.7-8.2) LFT Test 12/17/24 06:02 Alanine Aminotransferase (ALT) 14 U/L (7-40) Alkaline Phosphatase 113 U/L (46-116) Aspartate Amino Transferase (AST) 9 U/L (13-40) L Total Bilirubin 0.5 mg/dL (0.2-1.0) Microbiology Microbiology Date/Time Source Procedure Growth Status 12/14/24 23:45 Nose MRSA Screen - Final Complete Assessment/Plan Assessment/Plan Acute metabolic encephalopathy Abdominal pain Pelvic mass rule out fibroid tumor Right pleural effusion End-stage renal disease on hemodialysis Hyperkalemia Atrial fibrillation Hypertension Dyslipidemia Type 2 diabetes Chronic anemia of chronic kidney disease Elevated troponin, NSTEMI type 2 Plan Nephrology for dialysis Order a pelvic ultrasound to rule out uterine fibroid tumor Lidar Analyst consult Consult Dr. Fried for pleural effusion for possible thoracentesis Bumex Lokelma for hyperkalemia Not stable for transfer Full code Monitor closely NSTEMI: Consult Cardiology Echo Monitor closely 12/16/2024: Abdominal pain: The patient needs a paracentesis Pleural effusion, scheduled for thoracentesis today Lidar Analyst saw the patient, no further intervention is needed Continue Bumex Labs are still pending today Hemodialysis per nephrology NSTEMI type 2, she was seen by Cardiology continue medical management Monitor closely Not stable for transfer 12/17/24: Pleural effusion and ascites: Dr. Fried to do procedures today Hold Eliquis until procedures done HD today Monitor closely Not stable for transfer Plan discussed with: Patient Date of Service: December 17, 2024 Billing Provider: LORIN LUCAS MD Common Visit Codes: [id number] INP/OBS CARE(HIGH) LORIN LUCAS MD December 17, 2024 17:16
[2024-12-17 21:04] LABS: Body Fluid pH 8
--- NOTE | 2024-12-17 21:15 | DVHPN2 ---
Progress Note - Dictate Date Seen: December 17, 2024 Medical Necessity Reason Pt with a Central, PICC or Fol: Yes The following are medically ne: [place] Catheter Reason for [place] catheter: Strict I&O Subjective Patient seen and examined at bedside. On room air Overnight events reviewed. vital signs Vital Sign Date Time Temp Pulse Resp B/P (MAP) Pulse Ox O2 Delivery O2 Flow Rate FiO2 12/17/24 21:00 98.1 81 18 106/43 (64) 95 98.1 12/17/24 08:05 Nasal Cannula* 2 28 Total Intake and Output 12/16/24 12/16/24 12/17/24 15:00 23:00 07:00 Intake Total 500 ml 600 ml Output Total 100 ml 100 ml Balance 400 ml 500 ml medications Current Medications Medications Dose Ordered Sig/June Route Start Time Stop Time Status Last Admin Dose Admin Sodium Chloride 10 ml Q8HR IV 12/14/24 14:00 12/17/24 16:30 10 ML Acetaminophen/ Hydrocodone Bitart 1 tab Q4HP PRN PO 12/14/24 09:45 12/17/24 05:15 1 TAB Ondansetron HCl 4 mg Q4HP PRN IV 12/14/24 09:45 12/17/24 05:16 4 MG Docusate Sodium 100 mg BIDPRN PRN PO 12/14/24 09:45 Acetaminophen 650 mg Q6HP PRN PO 12/14/24 09:45 Nitroglycerin 0.4 mg Q5MINP PRN SL 12/14/24 09:45 Amlodipine Besylate 5 mg DAILY PO 12/14/24 10:00 12/17/24 09:42 5 MG Apixaban 2.5 mg BID PO 12/14/24 10:00 12/15/24 21:35 2.5 MG Atorvastatin Calcium 20 mg HS PO 12/14/24 22:00 12/16/24 22:36 20 MG Pantoprazole Sodium 40 mg BID PO 12/14/24 10:00 12/17/24 09:42 40 MG Sertraline HCl 50 mg DAILY PO 12/14/24 10:00 12/17/24 09:42 50 MG Bumetanide 2 mg BIDD PO 12/14/24 18:00 12/17/24 17:31 2 MG Carvedilol 25 mg BID PO 12/14/24 10:21 Hold Insulin Human NPH 21 units DAILY SC 12/14/24 10:00 Hold Insulin Human NPH 10 units HS SC 12/14/24 22:00 Hold Diagnostic Test (Pha) 1 strip ACHS 12/14/24 11:30 12/17/24 16:30 1 STRIP Insulin Human Regular HS SC 12/14/24 22:00 12/16/24 23:11 6 UNITS Insulin Human Regular AC SC 12/14/24 11:30 12/16/24 19:10 3 UNITS Dextrose 50 ml UD PRN IV 12/14/24 10:15 12/14/24 17:38 50 ML objective Gen.: Patient lying in bed in no apparent distress. On room air. Head: Normocephalic, atraumatic. Eyes: EOMI/PERRLA. Ears: Normal hearing. Normal anatomy. Neck/trachea: Trachea midline, supple. Nose: Normal external anatomy. Mouth: Moist mucous membranes. Chest: Decreased air entry bilaterally. No wheezing or rhonchi. Cardiovascular: Positive S1, positive S2. Regular rate and rhythm. Abdomen: Positive bowel sounds in all 4 quadrants. Soft, non-tender, non- distended. : Deferred. Rectal: Deferred. Skin: Warm, dry. Intact. Extremities: 2+ radial pulses bilaterally. No lower extremity edema. Neuro: Awake, alert, oriented x3. No gross motor or sensory deficits. Cranial nerves II through XII intact. Gait not assessed. laboratory and microbiology Laboratory Tests 12/17/24 06:02 Test 12/17/24 06:02 Range/Units Serum Glucose 100 74-106 mg/dL Assessment/Plan Impression: Acute hypoxic respiratory failure Pleural effusion Ascites Atelectasis Pelvic mass Metabolic encephalopathy End-stage renal disease, on hemodialysis Congestive heart failure Diabetes mellitus type II Events: On room air Supplemental oxygen PRN In no distress. No new complaints 1:1 sitter at bedside. Incentive spirometry Protonix for GI prophylaxis Accu-Cheks, ISS Pain control Avoid oversedation HD per Nephrology Monitor blood pressure On hemodialysis this PM. Diurese w/ Bumex as tolerated Monitor renal function. Monitor electrolytes. Supplement as necessary. Limited abdominal ultrasound revealed moderate amount of ascites. Patient is s/p paracentesis at bedside with removal of 1150 mL ascites fluid. Patient refused echo - f/u for echo as outpatient. Cardiology recs appreciated Labs and imaging reviewed. Rest of plan as noted below. Plan: Supplemental oxygen PRN Titrate to keep O2 sats above 92%. Incentive spirometry On Eliquis Diurese w/ Bumex as tolerated Monitor renal function. Monitor electrolytes. Supplement as necessary. Monitor ins and outs. GI/DVT prophylaxis. Prognosis: Poor given patient's multiple co-morbidities. Rest of plan per hospitalist and other consultants. Thank you, Dr. Leger, for allowing me to participate in this patient's care. Further recommendations will depend on the patient's clinical course. Please do not hesitate to contact me if you have any questions or concerns. This medical document was created using an electronic medical record system with [employer] dictation system. Although these documentations are being carefully reviewed, there may still be some phonetic and typographical changes. The errors are purely typographical, due to imperfection on the software program, and do not reflect any compromise in the patient's medical care. Dietary Evaluation Review Comments: 1. Nephro-helen 1 tab daily 2. CCHO 60 + renal diet 3. Nepro Carb Steady 240ml daily (ordered per [facility] protocol) 4. Continue current plan of care Expected Outcomes/Goals: Pt will meet 75% estimated needs Fu 3-5 days Plan discussed with: Patient, Other (RACHEL Hughes) DEONDRE ALARCON MD December 17, 2024 21:15
[2024-12-17] MEDS: EPOETIN ALFA-EPBX 10,000 UNIT/1ML VIAL SC ONE (21:16)
[2024-12-17 21:59] LABS: Body Fluid Red Blood Cells 830 CUMM (0-2000); Body Fluid White Blood Cells 232 CUMM (0-200)
[2024-12-18] VITALS (8 sets, daily range): BP systolic 108–126; BP diastolic 45–55; PULSE 76–92; RESP 17–20; TEMP 97.4–98.4; O2SAT 91–98
--- NOTE | 2024-12-18 12:08 | DVHPN2 ---
Subjective Complains of abdominal pain Changes from previous H/P or p: Changes Eyes: No Pain, No Vision change, No Conjunctivae inflammation, No Eyelid inflammation, No Other, No Redness ENT: No Ear pain, No Ear discharge, No Nose pain, No Nose discharge, No Nose congestion, No Mouth pain, No Mouth swelling, No Throat pain, No Throat swelling, No Other Cardiovascular: No Chest Pain, No Palpitations, No Orthopnea, No Paroxysmal Noc. Dyspnea, No Edema, No Lt Headedness, No Other Respiratory: No Cough, No Dry, No Shortness of breath, No SOB with excertion, No Wheezing, No Hemoptysis, No Pleuritic Pain, No Sputum, No Other Gastrointestinal: No Nausea, No Vomiting; Abdominal Pain; No Diarrhea, No Constipation, No Melena, No Hematochezia, No Other Genitourinary: No Dysuria, No Frequency, No Incontinence, No Hematuria, No Retention, No Other Skin: No Rash, No Lesions, No Jaundice, No Bruising, No Other Objective Vitals Vital Signs Date Time Temp Pulse Resp B/P (MAP) Pulse Ox O2 Delivery O2 Flow Rate FiO2 12/18/24 09:00 98.4 83 18 108/49 (68) 98 98.4 12/18/24 08:00 Nasal Cannula* 2 28 Intake/Output Intake and Output 12/18/24 07:00 Intake Total 630 ml Output Total 0 ml Balance 630 ml Intake Oral 630 ml Output Urine Total 0 ml General Appearance: Alert, Oriented X3, Cooperative Lungs: Clear to auscultation, Normal air movement Extremities: No edema Medications Current Medications Medications Dose Ordered Sig/June Route Start Time Stop Time Status Last Admin Dose Admin Sodium Chloride 10 ml Q8HR IV 12/14/24 14:00 12/18/24 06:00 10 ML Acetaminophen/ Hydrocodone Bitart 1 tab Q4HP PRN PO 12/14/24 09:45 12/18/24 00:55 1 TAB Ondansetron HCl 4 mg Q4HP PRN IV 12/14/24 09:45 12/18/24 00:54 4 MG Docusate Sodium 100 mg BIDPRN PRN PO 12/14/24 09:45 Acetaminophen 650 mg Q6HP PRN PO 12/14/24 09:45 Nitroglycerin 0.4 mg Q5MINP PRN SL 12/14/24 09:45 Amlodipine Besylate 5 mg DAILY PO 12/14/24 10:00 12/17/24 09:42 5 MG Apixaban 2.5 mg BID PO 12/14/24 10:00 12/18/24 08:43 2.5 MG Atorvastatin Calcium 20 mg HS PO 12/14/24 22:00 12/17/24 21:17 20 MG Pantoprazole Sodium 40 mg BID PO 12/14/24 10:00 12/18/24 08:43 40 MG Sertraline HCl 50 mg DAILY PO 12/14/24 10:00 12/18/24 08:43 50 MG Bumetanide 2 mg BIDD PO 12/14/24 18:00 12/18/24 05:57 2 MG Carvedilol 25 mg BID PO 12/14/24 10:21 Hold Insulin Human NPH 21 units DAILY SC 12/14/24 10:00 Hold Insulin Human NPH 10 units HS SC 12/14/24 22:00 Hold Diagnostic Test (Pha) 1 strip ACHS 12/14/24 11:30 12/18/24 06:00 1 STRIP Insulin Human Regular HS SC 12/14/24 22:00 12/17/24 21:18 2 UNITS Insulin Human Regular AC SC 12/14/24 11:30 12/18/24 06:03 6 UNITS Dextrose 50 ml UD PRN IV 12/14/24 10:15 12/14/24 17:38 50 ML Laboratory Results Laboratory Tests 12/17/24 06:02 Microbiology Microbiology Date/Time Source Procedure Growth Status 12/14/24 23:45 Nose MRSA Screen - Final Complete Assessment/Plan Assessment/Plan Acute metabolic encephalopathy Abdominal pain Pelvic mass rule out fibroid tumor Right pleural effusion End-stage renal disease on hemodialysis Hyperkalemia Atrial fibrillation Hypertension Dyslipidemia Type 2 diabetes Chronic anemia of chronic kidney disease Elevated troponin, NSTEMI type 2 Plan Nephrology for dialysis Order a pelvic ultrasound to rule out uterine fibroid tumor Bolting Machine Operator consult Consult Dr. Fried for pleural effusion for possible thoracentesis Bumex Lokelma for hyperkalemia Not stable for transfer Full code Monitor closely NSTEMI: Consult Cardiology Echo Monitor closely 12/16/2024: Abdominal pain: The patient needs a paracentesis Pleural effusion, scheduled for thoracentesis today Bolting Machine Operator saw the patient, no further intervention is needed Continue Bumex Labs are still pending today Hemodialysis per nephrology NSTEMI type 2, she was seen by Cardiology continue medical management Monitor closely Not stable for transfer 12/17/24: Pleural effusion and ascites: Dr. Fried to do procedures today Hold Eliquis until procedures done HD today Monitor closely Not stable for transfer 12/18/2024: Paracentesis was done yesterday revealed 1.1 L Thoracentesis to be done today Hemodialysis per nephrology Once the patient had her thoracentesis and if she is stable we will request her to go back to [place] [facility] to continue her rehab since she came from there according to her daughter Discussed with the daughter over the phone Not stable for transfer to [place] Plan to go back to [facility] possibly tomorrow Plan discussed with: Patient, Daughter Date of Service: December 18, 2024 Billing Provider: LORIN LUCAS MD Common Visit Codes: [id number] INP/OBS CARE(HIGH) LORIN LUCAS MD December 18, 2024 12:08
--- NOTE | 2024-12-18 15:10 | DVHPN2 ---
Progress Note - Dictate Date Seen: December 18, 2024 Medical Necessity Reason Pt with a Central, PICC or Fol: Yes The following are medically ne: [place] Catheter Reason for [place] catheter: Strict I&O Subjective Patient feeling better vital signs Vital Sign Date Time Temp Pulse Resp B/P (MAP) Pulse Ox O2 Delivery O2 Flow Rate FiO2 12/18/24 09:00 98.4 83 18 108/49 (68) 98 98.4 12/18/24 08:00 Nasal Cannula* 2 28 Total Intake and Output 12/17/24 12/17/24 12/18/24 15:00 23:00 07:00 Intake Total 150 ml 480 ml Output Total 0 ml Balance 150 ml 480 ml medications Current Medications Medications Dose Ordered Sig/June Route Start Time Stop Time Status Last Admin Dose Admin Sodium Chloride 10 ml Q8HR IV 12/14/24 14:00 12/18/24 12:59 10 ML Acetaminophen/ Hydrocodone Bitart 1 tab Q4HP PRN PO 12/14/24 09:45 12/18/24 00:55 1 TAB Ondansetron HCl 4 mg Q4HP PRN IV 12/14/24 09:45 12/18/24 00:54 4 MG Docusate Sodium 100 mg BIDPRN PRN PO 12/14/24 09:45 Acetaminophen 650 mg Q6HP PRN PO 12/14/24 09:45 Nitroglycerin 0.4 mg Q5MINP PRN SL 12/14/24 09:45 Amlodipine Besylate 5 mg DAILY PO 12/14/24 10:00 12/17/24 09:42 5 MG Apixaban 2.5 mg BID PO 12/14/24 10:00 12/18/24 08:43 2.5 MG Atorvastatin Calcium 20 mg HS PO 12/14/24 22:00 12/17/24 21:17 20 MG Pantoprazole Sodium 40 mg BID PO 12/14/24 10:00 12/18/24 08:43 40 MG Sertraline HCl 50 mg DAILY PO 12/14/24 10:00 12/18/24 08:43 50 MG Bumetanide 2 mg BIDD PO 12/14/24 18:00 12/18/24 05:57 2 MG Carvedilol 25 mg BID PO 12/14/24 10:21 Hold Insulin Human NPH 21 units DAILY SC 12/14/24 10:00 Hold Insulin Human NPH 10 units HS SC 12/14/24 22:00 Hold Diagnostic Test (Pha) 1 strip ACHS 12/14/24 11:30 12/18/24 11:30 1 STRIP Insulin Human Regular HS SC 12/14/24 22:00 12/17/24 21:18 2 UNITS Insulin Human Regular AC SC 12/14/24 11:30 12/18/24 06:03 6 UNITS Dextrose 50 ml UD PRN IV 12/14/24 10:15 12/14/24 17:38 50 ML objective HEENT: No evidence of JVD, no oral ulcers. Pulmonary: Diminished on auscultation bilaterally Cardiovascular S1-S2, no S3 or S4 Abdomen: Bowel sounds positive, soft no rebound tenderness Skin: No rash Neurological: Alert, oriented, no focal weakness Extremities: No lower extremity edema Access: Right forearm AV fistula positive bruit and thrill laboratory and microbiology Laboratory Tests 12/17/24 06:02 Test 12/17/24 06:02 Range/Units Serum Glucose 100 74-106 mg/dL Assessment/Plan Assessment: 1. End-stage renal disease on hemodialysis Friday via right upper arm AV fistula 2. Hyperkalemia 3. Fluid overload 4. Hypertension 5. Diabetes type 2 6. Generalized weak 7. Altered mental status 8. Uterine mass Plan and recommendations Last dialysis Friday. Thoracentesis, paracentesis Calcine Furnace Loader has been consulted appreciated som for goal hemoglobin 10-11 fluid restriction less than 1 L per day resume phosphate binders once mentation improved Continue Bumex Cardiology consult thank you very much for allowing us to participate in the care of this patient Dietary Evaluation Review Comments: 1. Nephro-helen 1 tab daily 2. CCHO 60 + renal diet 3. Nepro Carb Steady 240ml daily (ordered per ONS protocol) 4. Continue current plan of care Expected Outcomes/Goals: Pt will meet 75% estimated needs Fu 3-5 days Plan discussed with: Patient JONAS HERNANDEZ MD December 18, 2024 15:10
--- NOTE | 2024-12-18 23:10 | DVHPN2 ---
Progress Note - Dictate Date Seen: December 18, 2024 Medical Necessity Reason Pt with a Central, PICC or Fol: Yes The following are medically ne: [place] Catheter Reason for [place] catheter: Strict I&O Subjective Patient seen and examined at bedside. On supplemental oxygen Overnight events reviewed. vital signs Vital Sign Date Time Temp Pulse Resp B/P (MAP) Pulse Ox O2 Delivery O2 Flow Rate FiO2 12/18/24 21:00 97.4 83 18 119/55 (76) 98 97.4 12/18/24 20:00 Nasal Cannula* 2 28 Total Intake and Output 12/17/24 12/17/24 12/18/24 15:00 23:00 07:00 Intake Total 150 ml 480 ml Output Total 0 ml Balance 150 ml 480 ml medications Current Medications Medications Dose Ordered Sig/June Route Start Time Stop Time Status Last Admin Dose Admin Sodium Chloride 10 ml Q8HR IV 12/14/24 14:00 12/18/24 22:20 10 ML Acetaminophen/ Hydrocodone Bitart 1 tab Q4HP PRN PO 12/14/24 09:45 12/18/24 00:55 1 TAB Ondansetron HCl 4 mg Q4HP PRN IV 12/14/24 09:45 12/18/24 22:28 4 MG Docusate Sodium 100 mg BIDPRN PRN PO 12/14/24 09:45 Acetaminophen 650 mg Q6HP PRN PO 12/14/24 09:45 Nitroglycerin 0.4 mg Q5MINP PRN SL 12/14/24 09:45 Amlodipine Besylate 5 mg DAILY PO 12/14/24 10:00 12/17/24 09:42 5 MG Apixaban 2.5 mg BID PO 12/14/24 10:00 12/18/24 21:10 2.5 MG Atorvastatin Calcium 20 mg HS PO 12/14/24 22:00 12/18/24 21:10 20 MG Pantoprazole Sodium 40 mg BID PO 12/14/24 10:00 12/18/24 21:10 40 MG Sertraline HCl 50 mg DAILY PO 12/14/24 10:00 12/18/24 08:43 50 MG Bumetanide 2 mg BIDD PO 12/14/24 18:00 12/18/24 16:44 2 MG Carvedilol 25 mg BID PO 12/14/24 10:21 Hold Insulin Human NPH 21 units DAILY SC 12/14/24 10:00 Hold Insulin Human NPH 10 units HS SC 12/14/24 22:00 Hold Diagnostic Test (Pha) 1 strip ACHS 12/14/24 11:30 12/18/24 22:20 1 STRIP Insulin Human Regular HS SC 12/14/24 22:00 12/17/24 21:18 2 UNITS Insulin Human Regular AC SC 12/14/24 11:30 12/18/24 16:37 6 UNITS Dextrose 50 ml UD PRN IV 12/14/24 10:15 12/14/24 17:38 50 ML objective Gen.: Patient lying in bed in no apparent distress. On supplemental oxygen Head: Normocephalic, atraumatic. Eyes: EOMI/PERRLA. Ears: Normal hearing. Normal anatomy. Neck/trachea: Trachea midline, supple. Nose: Normal external anatomy. Mouth: Moist mucous membranes. Chest: Decreased air entry bilaterally. No wheezing or rhonchi. Cardiovascular: Positive S1, positive S2. Regular rate and rhythm. Abdomen: Positive bowel sounds in all 4 quadrants. Soft, non-tender, non- distended. : Deferred. Rectal: Deferred. Skin: Warm, dry. Intact. Extremities: 2+ radial pulses bilaterally. No lower extremity edema. Neuro: Awake, alert, oriented x3. No gross motor or sensory deficits. Cranial nerves II through XII intact. Gait not assessed. laboratory and microbiology Laboratory Tests 12/17/24 06:02 Test 12/17/24 06:02 Range/Units Serum Glucose 100 74-106 mg/dL Assessment/Plan Impression: Acute hypoxic respiratory failure Pleural effusion Ascites Atelectasis Pelvic mass Metabolic encephalopathy End-stage renal disease, on hemodialysis Congestive heart failure Diabetes mellitus type II Events: Currently on supplemental oxygen On 2 LPM nasal cannula Taper O2 as tolerated In no distress. No new complaints 1:1 sitter at bedside. Incentive spirometry Status post paracentesis yesterday with removal of 1150 mL ascites fluid. Limited chest ultrasound reviewed and demonstrated fluid below the diaphragm. No indication for thoracentesis Protonix BID for GI prophylaxis Eliquis BID for DVT prophylaxis Accu-Cheks, ISS Pain control Avoid oversedation HD per Nephrology Monitor blood pressure Diurese w/ Bumex BID as tolerated Monitor renal function. Monitor electrolytes. Supplement as necessary. Patient refused echo - f/u for echo as outpatient. Cardiology recs appreciated Labs and imaging reviewed. Rest of plan as noted below. Plan: Supplemental oxygen Titrate to keep O2 sats above 92%. Incentive spirometry Eliquis BID Accu-Cheks, ISS Diurese w/ Bumex as tolerated Monitor renal function. Monitor electrolytes. Supplement as necessary. Monitor ins and outs. GI/DVT prophylaxis. Prognosis: Poor given patient's multiple co-morbidities. Rest of plan per hospitalist and other consultants. Thank you, Dr. Leger, for allowing me to participate in this patient's care. Further recommendations will depend on the patient's clinical course. Please do not hesitate to contact me if you have any questions or concerns. This medical document was created using an electronic medical record system with [employer] dictation system. Although these documentations are being carefully reviewed, there may still be some phonetic and typographical changes. The errors are purely typographical, due to imperfection on the software program, and do not reflect any compromise in the patient's medical care. Dietary Evaluation Review Comments: 1. Nephro-helen 1 tab daily 2. CCHO 60 + renal diet 3. Nepro Carb Steady 240ml daily (ordered per ONS protocol) 4. Continue current plan of care Expected Outcomes/Goals: Pt will meet 75% estimated needs Fu 3-5 days Plan discussed with: Patient, Other (RACHEL Rice) DEONDRE ALARCON MD December 18, 2024 23:10
[2024-12-19] VITALS (9 sets, daily range): BP systolic 104–136; BP diastolic 35–68; PULSE 81–91; RESP 17–18; TEMP 97.4–98.4; O2SAT 95–98
--- NOTE | 2024-12-19 12:14 | DVHPN2 ---
Subjective No new complaints Changes from previous H/P or p: Changes Eyes: No Pain, No Vision change, No Conjunctivae inflammation, No Eyelid inflammation, No Other, No Redness ENT: No Ear pain, No Ear discharge, No Nose pain, No Nose discharge, No Nose congestion, No Mouth pain, No Mouth swelling, No Throat pain, No Throat swelling, No Other Cardiovascular: No Chest Pain, No Palpitations, No Orthopnea, No Paroxysmal Noc. Dyspnea, No Edema, No Lt Headedness, No Other Respiratory: No Cough, No Dry, No Shortness of breath, No SOB with excertion, No Wheezing, No Hemoptysis, No Pleuritic Pain, No Sputum, No Other Gastrointestinal: No Nausea, No Vomiting; Abdominal Pain; No Diarrhea, No Constipation, No Melena, No Hematochezia, No Other Genitourinary: No Dysuria, No Frequency, No Incontinence, No Hematuria, No Retention, No Other Skin: No Rash, No Lesions, No Jaundice, No Bruising, No Other Objective Vitals Vital Signs Date Time Temp Pulse Resp B/P (MAP) Pulse Ox O2 Delivery O2 Flow Rate FiO2 12/19/24 08:47 111/59 12/19/24 08:00 17 Nasal Cannula* 2 28 12/19/24 08:00 82 12/19/24 05:00 97.4 96 97.4 Intake/Output Intake and Output 12/19/24 07:00 Intake Total 720 ml Balance 720 ml Intake Oral 720 ml # Voids 51 General Appearance: Alert, Oriented X3, Cooperative Lungs: Clear to auscultation, Normal air movement Extremities: No edema Medications Current Medications Medications Dose Ordered Sig/June Route Start Time Stop Time Status Last Admin Dose Admin Sodium Chloride 10 ml Q8HR IV 12/14/24 14:00 12/19/24 06:09 10 ML Acetaminophen/ Hydrocodone Bitart 1 tab Q4HP PRN PO 12/14/24 09:45 12/18/24 00:55 1 TAB Ondansetron HCl 4 mg Q4HP PRN IV 12/14/24 09:45 12/19/24 06:09 4 MG Docusate Sodium 100 mg BIDPRN PRN PO 12/14/24 09:45 Acetaminophen 650 mg Q6HP PRN PO 12/14/24 09:45 Nitroglycerin 0.4 mg Q5MINP PRN SL 12/14/24 09:45 Amlodipine Besylate 5 mg DAILY PO 12/14/24 10:00 12/19/24 08:47 5 MG Apixaban 2.5 mg BID PO 12/14/24 10:00 12/19/24 08:46 2.5 MG Atorvastatin Calcium 20 mg HS PO 12/14/24 22:00 12/18/24 21:10 20 MG Pantoprazole Sodium 40 mg BID PO 12/14/24 10:00 12/19/24 08:47 40 MG Sertraline HCl 50 mg DAILY PO 12/14/24 10:00 12/19/24 08:46 50 MG Bumetanide 2 mg BIDD PO 12/14/24 18:00 12/19/24 05:59 2 MG Carvedilol 25 mg BID PO 12/14/24 10:21 Hold Insulin Human NPH 21 units DAILY SC 12/14/24 10:00 Hold Insulin Human NPH 10 units HS SC 12/14/24 22:00 Hold Diagnostic Test (Pha) 1 strip ACHS 12/14/24 11:30 12/19/24 05:59 1 STRIP Insulin Human Regular HS SC 12/14/24 22:00 12/17/24 21:18 2 UNITS Insulin Human Regular AC SC 12/14/24 11:30 12/19/24 06:03 2 UNITS Dextrose 50 ml UD PRN IV 12/14/24 10:15 12/14/24 17:38 50 ML Laboratory Results Laboratory Tests 12/17/24 06:02 Microbiology Microbiology Date/Time Source Procedure Growth Status 12/17/24 18:20 Ascities Fluid Gram Stain - Final Resulted 12/17/24 18:20 Ascities Fluid Body Fluid Culture - Preliminary Resulted 12/14/24 23:45 Nose MRSA Screen - Final Complete Assessment/Plan Assessment/Plan Acute metabolic encephalopathy Abdominal pain Pelvic mass rule out fibroid tumor Right pleural effusion End-stage renal disease on hemodialysis Hyperkalemia Atrial fibrillation Hypertension Dyslipidemia Type 2 diabetes Chronic anemia of chronic kidney disease Elevated troponin, NSTEMI type 2 Plan Nephrology for dialysis Order a pelvic ultrasound to rule out uterine fibroid tumor Line Patrolman consult Consult Dr. Fried for pleural effusion for possible thoracentesis Bumex Lokelma for hyperkalemia Not stable for transfer Full code Monitor closely NSTEMI: Consult Cardiology Echo Monitor closely 12/16/2024: Abdominal pain: The patient needs a paracentesis Pleural effusion, scheduled for thoracentesis today Line Patrolman saw the patient, no further intervention is needed Continue Bumex Labs are still pending today Hemodialysis per nephrology NSTEMI type 2, she was seen by Cardiology continue medical management Monitor closely Not stable for transfer 12/17/24: Pleural effusion and ascites: Dr. Fried to do procedures today Hold Eliquis until procedures done HD today Monitor closely Not stable for transfer 12/18/2024: Paracentesis was done yesterday revealed 1.1 L Thoracentesis to be done today Hemodialysis per nephrology Once the patient had her thoracentesis and if she is stable we will request her to go back to [facility] to continue her rehab since she came from there according to her daughter Discussed with the daughter over the phone Not stable for transfer to [place] Plan to go back to [facility] possibly tomorrow 12/19/2024: Thoracentesis is still pending Continue the current management Hemodialysis per nephrology Not stable for transfer [facility] tomorrow Plan discussed with: Patient Date of Service: December 19, 2024 Billing Provider: LORIN LUCAS MD Common Visit Codes: [id number] INP/OBS CARE(HIGH) LORIN LUCAS MD December 19, 2024 12:14
--- NOTE | 2024-12-19 14:57 | DVHPN2 ---
Progress Note - Dictate Date Seen: December 19, 2024 Medical Necessity Reason Pt with a Central, PICC or Fol: Yes The following are medically ne: [place] Catheter Reason for [place] catheter: Strict I&O Subjective Patient overall feeling better, she endorses generalized weakness. vital signs Vital Sign Date Time Temp Pulse Resp B/P (MAP) Pulse Ox O2 Delivery O2 Flow Rate FiO2 12/19/24 08:47 111/59 12/19/24 08:00 17 Nasal Cannula* 2 28 12/19/24 08:00 82 12/19/24 05:00 97.4 96 97.4 Total Intake and Output 12/18/24 12/18/24 12/19/24 15:00 23:00 07:00 Intake Total 400 ml 320 ml Balance 400 ml 320 ml medications Current Medications Medications Dose Ordered Sig/June Route Start Time Stop Time Status Last Admin Dose Admin Sodium Chloride 10 ml Q8HR IV 12/14/24 14:00 12/19/24 06:09 10 ML Acetaminophen/ Hydrocodone Bitart 1 tab Q4HP PRN PO 12/14/24 09:45 12/18/24 00:55 1 TAB Ondansetron HCl 4 mg Q4HP PRN IV 12/14/24 09:45 12/19/24 06:09 4 MG Docusate Sodium 100 mg BIDPRN PRN PO 12/14/24 09:45 Acetaminophen 650 mg Q6HP PRN PO 12/14/24 09:45 Nitroglycerin 0.4 mg Q5MINP PRN SL 12/14/24 09:45 Amlodipine Besylate 5 mg DAILY PO 12/14/24 10:00 12/19/24 08:47 5 MG Apixaban 2.5 mg BID PO 12/14/24 10:00 12/19/24 08:46 2.5 MG Atorvastatin Calcium 20 mg HS PO 12/14/24 22:00 12/18/24 21:10 20 MG Pantoprazole Sodium 40 mg BID PO 12/14/24 10:00 12/19/24 08:47 40 MG Sertraline HCl 50 mg DAILY PO 12/14/24 10:00 12/19/24 08:46 50 MG Bumetanide 2 mg BIDD PO 12/14/24 18:00 12/19/24 05:59 2 MG Carvedilol 25 mg BID PO 12/14/24 10:21 Hold Insulin Human NPH 21 units DAILY SC 12/14/24 10:00 Hold Insulin Human NPH 10 units HS SC 12/14/24 22:00 Hold Diagnostic Test (Pha) 1 strip ACHS 12/14/24 11:30 12/19/24 11:30 1 STRIP Insulin Human Regular HS SC 12/14/24 22:00 12/17/24 21:18 2 UNITS Insulin Human Regular AC SC 12/14/24 11:30 12/19/24 11:30 2 UNITS Dextrose 50 ml UD PRN IV 12/14/24 10:15 12/14/24 17:38 50 ML objective HEENT: No evidence of JVD, no oral ulcers. Pulmonary: Diminished on auscultation bilaterally Cardiovascular S1-S2, no S3 or S4 Abdomen: Bowel sounds positive, soft no rebound tenderness Skin: No rash Neurological: Alert, oriented, no focal weakness Extremities: No lower extremity edema Access: Right forearm AV fistula positive bruit and thrill laboratory and microbiology Laboratory Tests 12/17/24 06:02 Test 12/17/24 06:02 Range/Units Serum Glucose 100 74-106 mg/dL Assessment/Plan Assessment: 1. End-stage renal disease on hemodialysis Friday via right upper arm AV fistula 2. Hyperkalemia 3. Fluid overload 4. Hypertension 5. Diabetes type 2 6. Generalized weak 7. Altered mental status 8. Uterine mass Plan and recommendations Dialysis Friday Paracentesis completed 1.1 L removed Thoracentesis pending Social Media Assistant has been consulted appreciated, commenced Pap smear as an outpatient som for goal hemoglobin 10-11 fluid restriction less than 1 L per day resume phosphate binders once mentation improved Continue Bumex Cardiology consult PT thank you very much for allowing us to participate in the care of this patient Dietary Evaluation Review Comments: 1. Nephro-helen 1 tab daily 2. CCHO 60 + renal diet 3. Nepro Carb Steady 240ml daily (ordered per ONS protocol) 4. Continue current plan of care Expected Outcomes/Goals: Pt will meet 75% estimated needs Fu 3-5 days Plan discussed with: Patient JONAS HERNANDEZ MD December 19, 2024 14:57
[2024-12-19 19:30] LABS: Alanine Aminotransferase 18 U/L (7-40); Albumin 3.7 g/dL (3.2-4.8); Alkaline Phosphatase 113 U/L (46-116); Anion Gap 15 (5-15); BUN/Creatinine Ratio 6.5 (10.0-20.0); Bilirubin, Total 0.4 mg/dL (0.2-1.0); Calcium 9.4 mg/dL (8.7-10.4); Carbon Dioxide 25 mmol/L (20-31); Potassium 4.2 mmol/L (3.5-5.1); Sodium 137 mmol/L (136-145); Total Protein 6.5 g/dL (5.7-8.2)
[2024-12-19 19:31] LABS: Aspartate Aminotransferase 11 U/L (13-40); Blood Urea Nitrogen 41 mg/dL (9-23); Chloride 97 mmol/L (98-107); Glucose 234 mg/dL (74-106)
--- NOTE | 2024-12-19 23:08 | DVHPN2 ---
Progress Note - Dictate Date Seen: December 19, 2024 Medical Necessity Reason Pt with a Central, PICC or Fol: Yes The following are medically ne: [place] Catheter Reason for [place] catheter: Strict I&O Subjective Patient seen and examined at bedside. On supplemental oxygen Overnight events reviewed. vital signs Vital Sign Date Time Temp Pulse Resp B/P (MAP) Pulse Ox O2 Delivery O2 Flow Rate FiO2 12/19/24 21:00 98.4 85 18 119/49 (72) 96 98.4 12/19/24 20:00 Nasal Cannula* 2 28 Total Intake and Output 12/18/24 12/18/24 12/19/24 15:00 23:00 07:00 Intake Total 400 ml 320 ml Balance 400 ml 320 ml medications Current Medications Medications Dose Ordered Sig/June Route Start Time Stop Time Status Last Admin Dose Admin Sodium Chloride 10 ml Q8HR IV 12/14/24 14:00 12/19/24 21:14 10 ML Acetaminophen/ Hydrocodone Bitart 1 tab Q4HP PRN PO 12/14/24 09:45 12/18/24 00:55 1 TAB Ondansetron HCl 4 mg Q4HP PRN IV 12/14/24 09:45 12/19/24 21:09 4 MG Docusate Sodium 100 mg BIDPRN PRN PO 12/14/24 09:45 Acetaminophen 650 mg Q6HP PRN PO 12/14/24 09:45 Nitroglycerin 0.4 mg Q5MINP PRN SL 12/14/24 09:45 Amlodipine Besylate 5 mg DAILY PO 12/14/24 10:00 12/19/24 08:47 5 MG Apixaban 2.5 mg BID PO 12/14/24 10:00 12/19/24 21:09 2.5 MG Atorvastatin Calcium 20 mg HS PO 12/14/24 22:00 12/19/24 21:09 20 MG Pantoprazole Sodium 40 mg BID PO 12/14/24 10:00 12/19/24 21:09 40 MG Sertraline HCl 50 mg DAILY PO 12/14/24 10:00 12/19/24 08:46 50 MG Bumetanide 2 mg BIDD PO 12/14/24 18:00 12/19/24 17:08 2 MG Carvedilol 25 mg BID PO 12/14/24 10:21 Hold Insulin Human NPH 21 units DAILY SC 12/14/24 10:00 Hold Insulin Human NPH 10 units HS SC 12/14/24 22:00 Hold Diagnostic Test (Pha) 1 strip ACHS 12/14/24 11:30 12/19/24 21:10 1 STRIP Insulin Human Regular HS SC 12/14/24 22:00 12/19/24 21:14 3 UNITS Insulin Human Regular AC SC 12/14/24 11:30 12/19/24 17:14 6 UNITS Dextrose 50 ml UD PRN IV 12/14/24 10:15 12/14/24 17:38 50 ML objective Gen.: Patient lying in bed in no apparent distress. On supplemental oxygen Head: Normocephalic, atraumatic. Eyes: EOMI/PERRLA. Ears: Normal hearing. Normal anatomy. Neck/trachea: Trachea midline, supple. Nose: Normal external anatomy. Mouth: Moist mucous membranes. Chest: Decreased air entry bilaterally. No wheezing or rhonchi. Cardiovascular: Positive S1, positive S2. Regular rate and rhythm. Abdomen: Positive bowel sounds in all 4 quadrants. Soft, non-tender, non- distended. : Deferred. Rectal: Deferred. Skin: Warm, dry. Intact. Extremities: 2+ radial pulses bilaterally. No lower extremity edema. Neuro: Awake, alert, oriented x3. No gross motor or sensory deficits. Cranial nerves II through XII intact. Gait not assessed. laboratory and microbiology Laboratory Tests 12/19/24 19:05 12/17/24 06:02 Test 12/19/24 19:05 Range/Units Serum Glucose 234 H 74-106 mg/dL Assessment/Plan Impression: Acute hypoxic respiratory failure Pleural effusion Ascites Atelectasis Pelvic mass Metabolic encephalopathy End-stage renal disease, on hemodialysis Congestive heart failure Diabetes mellitus type II Events: Currently on supplemental oxygen On 2 LPM nasal cannula Taper O2 as tolerated In no distress. No new complaints 1:1 sitter at bedside. Incentive spirometry Status post paracentesis 12/17/24 with removal of 1150 mL ascites fluid. Protonix BID for GI prophylaxis Lovenox for DVT prophylaxis Accu-Cheks, ISS Pain control Avoid oversedation HD per Nephrology Monitor blood pressure Diurese w/ Bumex BID as tolerated Monitor renal function. Monitor electrolytes. Supplement as necessary. Labs and imaging reviewed. Rest of plan as noted below. Plan: Supplemental oxygen Titrate to keep O2 sats above 92%. Incentive spirometry Eliquis BID Accu-Cheks, ISS Diurese w/ Bumex as tolerated Monitor renal function. Monitor electrolytes. Supplement as necessary. Monitor ins and outs. GI/DVT prophylaxis. Prognosis: Poor given patient's multiple co-morbidities. Rest of plan per hospitalist and other consultants. Thank you, Dr. Leger, for allowing me to participate in this patient's care. Further recommendations will depend on the patient's clinical course. Please do not hesitate to contact me if you have any questions or concerns. This medical document was created using an electronic medical record system with [employer] dictation system. Although these documentations are being carefully reviewed, there may still be some phonetic and typographical changes. The errors are purely typographical, due to imperfection on the software program, and do not reflect any compromise in the patient's medical care. Dietary Evaluation Review Comments: 1. Nephro-helen 1 tab daily 2. CCHO 60 + renal diet 3. Nepro Carb Steady 240ml daily (ordered per [facility] protocol) 4. Continue current plan of care Expected Outcomes/Goals: Pt will meet 75% estimated needs Fu 3-5 days Plan discussed with: Patient, Other (RACHEL Rice) DEONDRE ALARCON MD December 19, 2024 23:08
[2024-12-19] MEDS: ACETAMINOPHEN 325 MG TAB PO PRN (23:24)
[2024-12-20] VITALS (10 sets, daily range): BP systolic 109–134; BP diastolic 38–80; PULSE 81–83; RESP 18–19; TEMP 97.3–98.7; O2SAT 94–99
[2024-12-20] MEDS ORDERED: SODIUM CHL 0.9% 1000 ML BAG XX ONE (07:00)
[2024-12-20 07:06] LABS: Potassium 4.7 mmol/L (3.5-5.1)
[2024-12-20 07:07] LABS: Anion Gap 17 (5-15); Calcium 9.8 mg/dL (8.7-10.4); Carbon Dioxide 21 mmol/L (20-31)
[2024-12-20 07:11] LABS: Chloride 97 mmol/L (98-107); Sodium 135 mmol/L (136-145)
[2024-12-20 07:12] LABS: BUN/Creatinine Ratio 5.1 (10.0-20.0); Glucose 98 mg/dL (74-106)
[2024-12-20 07:15] LABS: Blood Urea Nitrogen 34 mg/dL (9-23)
[2024-12-20 07:16] LABS: Basophils # (auto) 0 10 ^3/uL (0-0.2); Eosinophils # (auto) 0.1 10 ^3/uL (0-0.8); Hemoglobin 9.8 g/dL (12.2-16.2); Monocytes # (auto) 0.6 10 ^3/uL (0-1.3); Neutrophils # (auto) 4.6 10 ^3/uL (1.6-8.6)
[2024-12-20 07:21] LABS: Basophils % (auto) 0.4 % (0.0-2.0); Eosinophils % (auto) 1.2 % (0.0-7.0); Hematocrit 31.5 % (36.0-46.0); Lymphocytes # (auto) 1.1 10 ^3/uL (0.4-5.4); Lymphocytes % (auto) 17.1 % (10.0-50.0); Mean Corpuscular Hemoglobin 30.4 pg (28.0-32.0); Mean Corpuscular Hgb Conc. 31.1 g/dL (32.0-36.0); Mean Corpuscular Volume 97.6 fL (80.0-100.0); Monocytes % (auto) 9.1 % (0.0-12.0); Neutrophils % (auto) 72.2 % (37.0-80.0); Nucleated Red Blood Cells % 0.6 %; Platelet Count (auto) 151 10^3/uL (140-450); Red Blood Cells 3.23 10^6/uL (4.0-5.20); White Blood Cell 6.4 10^3/uL (4.4-10.8)
[2024-12-20 07:30] LABS: Red Cell Distribution Width 20.1 % (11.8-14.3)
--- NOTE | 2024-12-20 08:10 | DVHPN2 ---
Progress Note - Dictate Date Seen: December 20, 2024 Has the PT tested + for MRSA If YES, has PT been informed?: No Medical Necessity Reason Pt with a Central, PICC or Fol: No The following are medically ne: [place] Catheter Reason for [place] catheter: Strict I&O Subjective No new complaints vital signs Vital Sign Date Time Temp Pulse Resp B/P (MAP) Pulse Ox O2 Delivery O2 Flow Rate FiO2 12/20/24 06:02 115/57 12/20/24 05:00 98.4 81 18 96 98.4 12/19/24 20:00 Nasal Cannula* 2 28 Total Intake and Output 12/19/24 12/19/24 12/20/24 15:00 23:00 07:00 Intake Total 450 ml 750 ml Balance 450 ml 750 ml medications Current Medications Medications Dose Ordered Sig/June Route Start Time Stop Time Status Last Admin Dose Admin Sodium Chloride 10 ml Q8HR IV 12/14/24 14:00 12/20/24 06:09 10 ML Acetaminophen/ Hydrocodone Bitart 1 tab Q4HP PRN PO 12/14/24 09:45 12/18/24 00:55 1 TAB Ondansetron HCl 4 mg Q4HP PRN IV 12/14/24 09:45 12/20/24 06:02 4 MG Docusate Sodium 100 mg BIDPRN PRN PO 12/14/24 09:45 Acetaminophen 650 mg Q6HP PRN PO 12/14/24 09:45 12/19/24 23:24 650 MG Nitroglycerin 0.4 mg Q5MINP PRN SL 12/14/24 09:45 Amlodipine Besylate 5 mg DAILY PO 12/14/24 10:00 12/19/24 08:47 5 MG Apixaban 2.5 mg BID PO 12/14/24 10:00 12/19/24 21:09 2.5 MG Atorvastatin Calcium 20 mg HS PO 12/14/24 22:00 12/19/24 21:09 20 MG Pantoprazole Sodium 40 mg BID PO 12/14/24 10:00 12/19/24 21:09 40 MG Sertraline HCl 50 mg DAILY PO 12/14/24 10:00 12/19/24 08:46 50 MG Bumetanide 2 mg BIDD PO 12/14/24 18:00 12/20/24 06:02 2 MG Carvedilol 25 mg BID PO 12/14/24 10:21 Hold Insulin Human NPH 21 units DAILY SC 12/14/24 10:00 Hold Insulin Human NPH 10 units HS SC 12/14/24 22:00 Hold Diagnostic Test (Pha) 1 strip ACHS 12/14/24 11:30 12/20/24 06:03 1 STRIP Insulin Human Regular HS SC 12/14/24 22:00 12/19/24 21:14 3 UNITS Insulin Human Regular AC SC 12/14/24 11:30 12/20/24 06:08 2 UNITS Dextrose 50 ml UD PRN IV 12/14/24 10:15 12/14/24 17:38 50 ML objective Mostly lethargic NAD Lungs: scattered rales CV: IR, S3 gallop Trace leg edema laboratory and microbiology Laboratory Tests 12/20/24 05:05 Test 12/20/24 05:05 Range/Units Serum Glucose 98 74-106 mg/dL Problem List 1. End-stage renal disease on hemodialysis Friday via right upper arm AV fistula 2. Fluid overload has improved 3. Hypertension 4. Diabetes type 2 5. Altered mental status 6. Uterine mass Plan and recommendations Dialysis on MWF schedule Paracentesis completed 1.1 L removed Thoracentesis pending fluid restriction less than 1 L per day resume phosphate binders once mentation improved Continue Bumex PT Dietary Evaluation Review Comments: 1. Nephro-helen 1 tab daily 2. CCHO 60 + renal diet 3. Nepro Carb Steady 240ml daily (ordered per [facility] protocol) 4. Continue current plan of care Expected Outcomes/Goals: Pt will meet 75% estimated needs Fu 3-5 days Plan discussed with: Other MIRIAM COSME MD December 20, 2024 08:10
[2024-12-20] MEDS: ALBUMIN 25% 100 ML IV ONE (10:54)
[2024-12-20] MEDS: SODIUM CHL 0.9% 1000 ML BAG XX ONE ×2 (10:54)
--- NOTE | 2024-12-20 13:20 | DVHDS2 ---
Discharge Summary Date of Admission December 14, 2024 at 09:42 Date of Discharge: December 20, 2024 Labs/Diagnostic Data: Laboratory Results Test 12/20/24 11:08 12/20/24 05:05 12/19/24 19:05 12/17/24 18:20 POC Glucose 107 mg/dl (70-106) White Blood Count 6.4 10^3/uL (4.4-10.8) Red Blood Count 3.23 10^6/uL (4.0-5.20) Hemoglobin 9.8 g/dL (12.2-16.2) Hematocrit 31.5 % (36.0-46.0) Mean Corpuscular Volume 97.6 fL (80.0-100.0) Mean Corpuscular Hemoglobin 30.4 pg (28.0-32.0) Mean Corpuscular Hemoglobin Concent 31.1 g/dL (32.0-36.0) Red Cell Distribution Width 20.1 % (11.8-14.3) Platelet Count 151 10^3/uL (140-450) Mean Platelet Volume 8.5 fL (6.9-10.8) Neutrophils (%) (Auto) 72.2 % (37.0-80.0) Lymphocytes (%) (Auto) 17.1 % (10.0-50.0) Monocytes (%) (Auto) 9.1 % (0.0-12.0) Eosinophils (%) (Auto) 1.2 % (0.0-7.0) Basophils (%) (Auto) 0.4 % (0.0-2.0) Neutrophils # (Auto) 4.6 10 ^3/uL (1.6-8.6) Lymphocytes # (Auto) 1.1 10 ^3/uL (0.4-5.4) Monocytes # (Auto) 0.6 10 ^3/uL (0-1.3) Eosinophils # (Auto) 0.1 10 ^3/uL (0-0.8) Basophils # (Auto) 0 10 ^3/uL (0-0.2) Nucleated Red Blood Cells 0.6 % Sodium Level 135 mmol/L (136-145) Potassium Level 4.7 mmol/L (3.5-5.1) Chloride Level 97 mmol/L (98-107) Carbon Dioxide Level 21 mmol/L (20-31) Anion Gap 17 (5-15) Blood Urea Nitrogen 34 mg/dL (9-23) Creatinine 6.68 mg/dL (0.550-1.02) Glomerular Filtration Rate Calc 6 mL/min (>90) BUN/Creatinine Ratio 5.1 (10.0-20.0) Serum Glucose 98 mg/dL (74-106) Calcium Level 9.8 mg/dL (8.7-10.4) Total Bilirubin 0.4 mg/dL (0.2-1.0) Aspartate Amino Transferase (AST) 11 U/L (13-40) Alanine Aminotransferase (ALT) 18 U/L (7-40) Alkaline Phosphatase 113 U/L (46-116) Total Protein 6.5 g/dL (5.7-8.2) Albumin 3.7 g/dL (3.2-4.8) Body Fluid Source Peritoneal fluid Body Fluid pH 8 Body Fluid WBC (Manual) 232 CUMM (0-200) Body Fluid RBC (Manual) 830 CUMM (0-2000) Body Fluid Mononuclear Cells 95 % Body Fluid Polymorphonuclear Cells 5 % (0-25) Test 12/17/24 06:02 12/16/24 14:22 12/15/24 13:37 12/15/24 06:57 Magnesium Level 1.9 mg/dL (1.6-2.6) Iron Level 92 ug/dL (50-170) Total Iron Binding Capacity 210 ug/dL (250-425) Percent Iron Saturation 43.8 % (15-50) Ferritin 776.4 ng/mL (10-291) Prothrombin Time 15.3 sec (9.3-11.8) Prothrombin Time INR 1.50 (0.9-1.15) Random Vancomycin Level 39.5 ug/mL (5-10) Hepatitis A IgM Antibody Negative Hepatitis B Surface Antigen Negative (Negative) Hepatitis B Core IgM Antibody Negative (Negative) Hepatitis C Antibody Positive (Negative) Hemoglobin A1c 6.9 % A1C (<5.7) Triglycerides Level 75 mg/dL (< 150) Cholesterol Level 100 mg/dL (< 200) LDL Cholesterol 29 mg/dL (< 100) HDL Cholesterol 46 mg/dL (40-59) Thyroid Stimulating Hormone (TSH) 1.49 uIU/mL (0.55-4.78) Test 12/14/24 08:42 12/14/24 05:24 Troponin I High Sensitivity 121 ng/L (</=34) Lipase 32 U/L (12-53) Other Laboratory Tests 12/20/24 05:05 Brief Hx & Hospital Course: Diagnoses: Acute metabolic encephalopathy Abdominal pain due to ascites 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 She had ascites and she required paracentesis She was also found to possibly have pleural effusion however on further examination she was found that the ascites fluid was overlapping the lungs looking like a pleural effusion and therefore she did not need a thoracentesis Overall she did well The pelvic mass that was suspected on a CT scan of the abdomen was thought to be a fibroid uterine tumor, she was seen by warrant clerk and recommended outpatient follow up and no further intervention at this time The patient is stable to be discharged back to [facility] to continue rehab and resume dialysis as scheduled Condition at Discharge: Stable Final Diagnosis/Problems List Acute metabolic encephalopathy Abdominal pain due to ascites 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 Patient was counseled about treatment plan, medications, possible side effects, patientverbalized understanding. All questions were answered to the best of my ability. This discharge took greater then 30 minutes in planning, reviewing documentation, counseling the patient, and discussing with other team members." ASSESSMENT ASSESSMENT Assessment Date of Service: December 20, 2024 Billing Provider: LORIN LUCAS MD Common Visit Codes: 05694-QLX/OBS DISCH DAY >30min LORIN LUCAS MD December 20, 2024 13:20
[2024-12-20] MEDS: EPOETIN ALFA-EPBX 10,000 UNIT/1ML VIAL SC ONE (21:32)
--- NOTE | 2024-12-20 22:04 | DVHPN2 ---
Progress Note - Dictate Date Seen: December 20, 2024 Has the PT tested + for MRSA If YES, has PT been informed?: No Medical Necessity Reason Pt with a Central, PICC or Fol: Yes The following are medically ne: [place] Catheter Reason for [place] catheter: Strict I&O Subjective Patient seen and examined at bedside. On supplemental oxygen Overnight events reviewed. vital signs Vital Sign Date Time Temp Pulse Resp B/P (MAP) Pulse Ox O2 Delivery O2 Flow Rate FiO2 12/20/24 21:00 98.7 83 19 109/38 (61) 94 98.7 12/20/24 08:15 Nasal Cannula* 2 28 Total Intake and Output 12/19/24 12/19/24 12/20/24 15:00 23:00 07:00 Intake Total 450 ml 750 ml Balance 450 ml 750 ml medications Current Medications Medications Dose Ordered Sig/June Route Start Time Stop Time Status Last Admin Dose Admin Sodium Chloride 10 ml Q8HR IV 12/14/24 14:00 12/20/24 06:09 10 ML Acetaminophen/ Hydrocodone Bitart 1 tab Q4HP PRN PO 12/14/24 09:45 12/18/24 00:55 1 TAB Ondansetron HCl 4 mg Q4HP PRN IV 12/14/24 09:45 12/20/24 06:02 4 MG Docusate Sodium 100 mg BIDPRN PRN PO 12/14/24 09:45 Acetaminophen 650 mg Q6HP PRN PO 12/14/24 09:45 12/20/24 21:35 650 MG Nitroglycerin 0.4 mg Q5MINP PRN SL 12/14/24 09:45 Amlodipine Besylate 5 mg DAILY PO 12/14/24 10:00 12/19/24 08:47 5 MG Apixaban 2.5 mg BID PO 12/14/24 10:00 12/20/24 21:34 2.5 MG Atorvastatin Calcium 20 mg HS PO 12/14/24 22:00 12/20/24 21:33 20 MG Pantoprazole Sodium 40 mg BID PO 12/14/24 10:00 12/20/24 21:33 40 MG Sertraline HCl 50 mg DAILY PO 12/14/24 10:00 12/20/24 10:54 50 MG Bumetanide 2 mg BIDD PO 12/14/24 18:00 12/20/24 06:02 2 MG Carvedilol 25 mg BID PO 12/14/24 10:21 Hold Insulin Human NPH 21 units DAILY SC 12/14/24 10:00 Hold Insulin Human NPH 10 units HS SC 12/14/24 22:00 Hold Diagnostic Test (Pha) 1 strip ACHS 12/14/24 11:30 12/20/24 21:31 1 STRIP Insulin Human Regular HS SC 12/14/24 22:00 12/20/24 21:31 4 UNITS Insulin Human Regular AC SC 12/14/24 11:30 12/20/24 06:08 2 UNITS Dextrose 50 ml UD PRN IV 12/14/24 10:15 12/14/24 17:38 50 ML objective Gen.: Patient lying in bed in no apparent distress. On supplemental oxygen Head: Normocephalic, atraumatic. Eyes: EOMI/PERRLA. Ears: Normal hearing. Normal anatomy. Neck/trachea: Trachea midline, supple. Nose: Normal external anatomy. Mouth: Moist mucous membranes. Chest: Decreased air entry bilaterally. No wheezing or rhonchi. Cardiovascular: Positive S1, positive S2. Regular rate and rhythm. Abdomen: Positive bowel sounds in all 4 quadrants. Soft, non-tender, non- distended. : Deferred. Rectal: Deferred. Skin: Warm, dry. Intact. Extremities: 2+ radial pulses bilaterally. No lower extremity edema. Neuro: Awake, alert, oriented x3. No gross motor or sensory deficits. Cranial nerves II through XII intact. Gait not assessed. laboratory and microbiology Laboratory Tests 12/20/24 05:05 Test 12/20/24 05:05 Range/Units Serum Glucose 98 74-106 mg/dL Assessment/Plan Impression: Acute hypoxic respiratory failure Pleural effusion Ascites Atelectasis Pelvic mass Metabolic encephalopathy End-stage renal disease, on hemodialysis Congestive heart failure Diabetes mellitus type II Events: Currently on supplemental oxygen On 2 LPM nasal cannula Taper O2 as tolerated 1:1 sitter at bedside. Patient noted to have no urine output Bumex IVP given Hemodialysis scheduled for today Nephro recs appreciated Incentive spirometry Accu-Cheks, ISS HD per Nephrology Monitor blood pressure Monitor renal function. Monitor electrolytes. Supplement as necessary. Protonix BID for GI prophylaxis Status post paracentesis 12/17/24 with removal of 1150 mL ascites fluid. Labs and imaging reviewed. Rest of plan as noted below. Plan: Supplemental oxygen Titrate to keep O2 sats above 92%. Incentive spirometry Eliquis BID Accu-Cheks, ISS Pain control Avoid oversedation HD per Nephrology Monitor renal function. Monitor electrolytes. Supplement as necessary. Monitor ins and outs. GI/DVT prophylaxis. Prognosis: Poor given patient's multiple co-morbidities. Rest of plan per hospitalist and other consultants. Thank you, Dr. Leger, for allowing me to participate in this patient's care. Further recommendations will depend on the patient's clinical course. Please do not hesitate to contact me if you have any questions or concerns. This medical document was created using an electronic medical record system with [employer] dictation system. Although these documentations are being carefully reviewed, there may still be some phonetic and typographical changes. The errors are purely typographical, due to imperfection on the software program, and do not reflect any compromise in the patient's medical care. Dietary Evaluation Review Comments: 1. Nephro-helen 1 tab daily 2. CCHO 60 + renal diet 3. Nepro Carb Steady 240ml daily (ordered per [facility] protocol) 4. Continue current plan of care Expected Outcomes/Goals: Pt will meet 75% estimated needs Fu 3-5 days Plan discussed with: Patient, Other (RACHEL Torres) DEONDRE ALARCON MD December 20, 2024 22:04
[2024-12-21 01:00] VITALS: BP 117/47; PULSE 83; RESP 18; TEMP 98; O2SAT 96
[2024-12-21 05:00] VITALS: BP 117/91; PULSE 83; RESP 19; TEMP 97.5; O2SAT 94
[2024-12-21 06:55] VITALS: PULSE 83
[2024-12-21 08:15] VITALS: PULSE 83; RESP 17; O2SAT 100
[2024-12-21 09:00] VITALS: BP 145/61; PULSE 83; RESP 17; TEMP 98.5; O2SAT 100
--- NOTE | 2024-12-21 10:39 | DVHPN2 ---
Progress Note - Dictate Date Seen: December 21, 2024 Has the PT tested + for MRSA If YES, has PT been informed?: No Medical Necessity Reason Pt with a Central, PICC or Fol: Yes The following are medically ne: [place] Catheter Reason for [place] catheter: Strict I&O Subjective No new complaints vital signs Vital Sign Date Time Temp Pulse Resp B/P (MAP) Pulse Ox O2 Delivery O2 Flow Rate FiO2 12/21/24 10:14 145/61 12/21/24 09:00 98.5 83 17 100 98.5 12/20/24 20:00 Nasal Cannula* 2 28 Total Intake and Output 12/20/24 12/20/24 12/21/24 15:00 23:00 07:00 Intake Total 300 ml 0 ml Balance 300 ml 0 ml medications Current Medications Medications Dose Ordered Sig/June Route Start Time Stop Time Status Last Admin Dose Admin Sodium Chloride 10 ml Q8HR IV 12/14/24 14:00 12/21/24 05:55 10 ML Acetaminophen/ Hydrocodone Bitart 1 tab Q4HP PRN PO 12/14/24 09:45 12/18/24 00:55 1 TAB Ondansetron HCl 4 mg Q4HP PRN IV 12/14/24 09:45 12/21/24 01:48 4 MG Docusate Sodium 100 mg BIDPRN PRN PO 12/14/24 09:45 Acetaminophen 650 mg Q6HP PRN PO 12/14/24 09:45 12/20/24 21:35 650 MG Nitroglycerin 0.4 mg Q5MINP PRN SL 12/14/24 09:45 Amlodipine Besylate 5 mg DAILY PO 12/14/24 10:00 12/21/24 10:14 5 MG Apixaban 2.5 mg BID PO 12/14/24 10:00 12/21/24 10:14 2.5 MG Atorvastatin Calcium 20 mg HS PO 12/14/24 22:00 12/20/24 21:33 20 MG Pantoprazole Sodium 40 mg BID PO 12/14/24 10:00 12/21/24 10:14 40 MG Sertraline HCl 50 mg DAILY PO 12/14/24 10:00 12/21/24 10:14 50 MG Bumetanide 2 mg BIDD PO 12/14/24 18:00 5/13/25 05:55 2 MG Carvedilol 25 mg BID PO 12/14/24 10:21 Hold Insulin Human NPH 21 units DAILY SC 12/14/24 10:00 Hold Insulin Human NPH 10 units HS SC 12/14/24 22:00 Hold Diagnostic Test (Pha) 1 strip ACHS 12/14/24 11:30 12/21/24 05:55 1 STRIP Insulin Human Regular HS SC 12/14/24 22:00 12/20/24 21:31 4 UNITS Insulin Human Regular AC SC 12/14/24 11:30 12/20/24 06:08 2 UNITS Dextrose 50 ml UD PRN IV 12/14/24 10:15 12/14/24 17:38 50 ML objective Mostly lethargic NAD Lungs: scattered rales CV: IR, S3 gallop Trace leg edema laboratory and microbiology Laboratory Tests 12/20/24 05:05 Test 12/20/24 05:05 Range/Units Serum Glucose 98 74-106 mg/dL Problem List 1. End-stage renal disease on hemodialysis Friday via right upper arm AV fistula 2. Fluid overload has improved 3. Hypertension 4. Diabetes type 2 5. Altered mental status 6. Uterine mass Plan and recommendations Dialysis on MWF schedule Paracentesis completed 1.1 L removed fluid restriction less than 1 L per day resume phosphate binders once mentation improved Continue Bumex PT DC planning, patient is being transferred to SNF today Dietary Evaluation Review Comments: 1. Nephro-helen 1 tab daily 2. CCHO 60 + renal diet 3. Nepro Carb Steady 240ml daily (ordered per [facility] protocol) 4. Continue current plan of care Expected Outcomes/Goals: Pt will meet 75% estimated needs Fu 3-5 days Plan discussed with: Patient MIRIAM COSME MD December 21, 2024 10:39
--- NOTE | 2024-12-21 11:41 | DVHPN2 ---
Subjective The patient is supposed to go to SNF to continue rehab Changes from previous H/P or p: Changes Eyes: No Pain, No Vision change, No Conjunctivae inflammation, No Eyelid inflammation, No Other, No Redness ENT: No Ear pain, No Ear discharge, No Nose pain, No Nose discharge, No Nose congestion, No Mouth pain, No Mouth swelling, No Throat pain, No Throat swelling, No Other Cardiovascular: No Chest Pain, No Palpitations, No Orthopnea, No Paroxysmal Noc. Dyspnea, No Edema, No Lt Headedness, No Other Respiratory: No Cough, No Dry, No Shortness of breath, No SOB with excertion, No Wheezing, No Hemoptysis, No Pleuritic Pain, No Sputum, No Other Gastrointestinal: No Nausea, No Vomiting; Abdominal Pain; No Diarrhea, No Constipation, No Melena, No Hematochezia, No Other Genitourinary: No Dysuria, No Frequency, No Incontinence, No Hematuria, No Retention, No Other Skin: No Rash, No Lesions, No Jaundice, No Bruising, No Other Objective Vitals Vital Signs Date Time Temp Pulse Resp B/P (MAP) Pulse Ox O2 Delivery O2 Flow Rate FiO2 12/21/24 10:14 145/61 12/21/24 09:00 98.5 83 17 100 98.5 12/21/24 08:15 Nasal Cannula* 2 28 Intake/Output Intake and Output 12/21/24 07:00 Intake Total 300 ml Balance 300 ml Intake Oral 300 ml # Voids 2 # Bowel Movements 1 General Appearance: Alert, Oriented X3, Cooperative Lungs: Clear to auscultation, Normal air movement Extremities: No edema Medications Current Medications Medications Dose Ordered Sig/June Route Start Time Stop Time Status Last Admin Dose Admin Sodium Chloride 10 ml Q8HR IV 12/14/24 14:00 12/21/24 05:55 10 ML Acetaminophen/ Hydrocodone Bitart 1 tab Q4HP PRN PO 12/14/24 09:45 12/18/24 00:55 1 TAB Ondansetron HCl 4 mg Q4HP PRN IV 12/14/24 09:45 12/21/24 01:48 4 MG Docusate Sodium 100 mg BIDPRN PRN PO 12/14/24 09:45 Acetaminophen 650 mg Q6HP PRN PO 12/14/24 09:45 12/20/24 21:35 650 MG Nitroglycerin 0.4 mg Q5MINP PRN SL 12/14/24 09:45 Amlodipine Besylate 5 mg DAILY PO 12/14/24 10:00 12/21/24 10:14 5 MG Apixaban 2.5 mg BID PO 12/14/24 10:00 12/21/24 10:14 2.5 MG Atorvastatin Calcium 20 mg HS PO 12/14/24 22:00 12/20/24 21:33 20 MG Pantoprazole Sodium 40 mg BID PO 12/14/24 10:00 12/21/24 10:14 40 MG Sertraline HCl 50 mg DAILY PO 12/14/24 10:00 12/21/24 10:14 50 MG Bumetanide 2 mg BIDD PO 12/14/24 18:00 12/21/24 05:55 2 MG Carvedilol 25 mg BID PO 12/14/24 10:21 Hold Insulin Human NPH 21 units DAILY SC 12/14/24 10:00 Hold Insulin Human NPH 10 units HS SC 12/14/24 22:00 Hold Diagnostic Test (Pha) 1 strip ACHS 12/14/24 11:30 12/21/24 05:55 1 STRIP Insulin Human Regular HS SC 12/14/24 22:00 12/20/24 21:31 4 UNITS Insulin Human Regular AC SC 12/14/24 11:30 12/20/24 06:08 2 UNITS Dextrose 50 ml UD PRN IV 12/14/24 10:15 12/14/24 17:38 50 ML Laboratory Results Laboratory Tests 12/20/24 05:05 Microbiology Microbiology Date/Time Source Procedure Growth Status 12/17/24 18:20 Ascities Fluid Gram Stain - Final Resulted 12/17/24 18:20 Ascities Fluid Body Fluid Culture - Preliminary Resulted 12/14/24 23:45 Nose MRSA Screen - Final Complete Assessment/Plan Assessment/Plan Acute metabolic encephalopathy Abdominal pain Pelvic mass rule out fibroid tumor Right pleural effusion End-stage renal disease on hemodialysis Hyperkalemia Atrial fibrillation Hypertension Dyslipidemia Type 2 diabetes Chronic anemia of chronic kidney disease Elevated troponin, NSTEMI type 2 Plan Nephrology for dialysis Order a pelvic ultrasound to rule out uterine fibroid tumor Process Control Operator consult Consult Dr. Fried for pleural effusion for possible thoracentesis Bumex Lokelma for hyperkalemia Not stable for transfer Full code Monitor closely NSTEMI: Consult Cardiology Echo Monitor closely 12/16/2024: Abdominal pain: The patient needs a paracentesis Pleural effusion, scheduled for thoracentesis today Process Control Operator saw the patient, no further intervention is needed Continue Bumex Labs are still pending today Hemodialysis per nephrology NSTEMI type 2, she was seen by Cardiology continue medical management Monitor closely Not stable for transfer 12/17/24: Pleural effusion and ascites: Dr. Fried to do procedures today Hold Eliquis until procedures done HD today Monitor closely Not stable for transfer 12/18/2024: Paracentesis was done yesterday revealed 1.1 L Thoracentesis to be done today Hemodialysis per nephrology Once the patient had her thoracentesis and if she is stable we will request her to go back to [place] to continue her rehab since she came from there according to her daughter Discussed with the daughter over the phone Not stable for transfer to [place] Plan to go back to [facility] possibly tomorrow 12/19/2024: Thoracentesis is still pending Continue the current management Hemodialysis per nephrology Not stable for transfer Plan to discharge to [facility] for to continue rehab tomorrow 12/21/2024: The patient is going to be discharged to SNF to continue rehab since she came from there before she was admitted here Stable for transfer to SNF Plan discussed with: Patient, Daughter My Orders Orders - LORIN LUCAS MD Procedure Category Date Status Time * Acting Section Chief CONS 12/20/24 Transmitted Consult Discharge DISCHARGE 12/20/24 Transmitted 13:20 Pt Request For Service PT 12/20/24 Logged 14:18 Date of Service: December 21, 2024 Billing Provider: LORIN LUCAS MD Common Visit Codes: [id number] INP/OBS CARE(HIGH) LORIN LUCAS MD December 21, 2024 11:41
[2024-12-21 13:07] LABS: Protein, Body Fluid 3.8 g/dL (.)
--- NOTE | 2024-12-21 21:19 | DVHPN2 ---
Progress Note - Dictate Date Seen: December 21, 2024 Has the PT tested + for MRSA If YES, has PT been informed?: No Medical Necessity Reason Pt with a Central, PICC or Fol: Yes The following are medically ne: [place] Catheter Reason for [place] catheter: Strict I&O Subjective Patient seen and examined at bedside. On supplemental oxygen Overnight events reviewed. vital signs Vital Sign Date Time Temp Pulse Resp B/P (MAP) Pulse Ox O2 Delivery O2 Flow Rate FiO2 12/21/24 10:14 145/61 12/21/24 09:00 98.5 83 17 100 98.5 12/21/24 08:15 Nasal Cannula* 2 28 Total Intake and Output 12/20/24 12/20/24 12/21/24 15:00 23:00 07:00 Intake Total 300 ml 0 ml Balance 300 ml 0 ml objective Gen.: Patient lying in bed in no apparent distress. On supplemental oxygen Head: Normocephalic, atraumatic. Eyes: EOMI/PERRLA. Ears: Normal hearing. Normal anatomy. Neck/trachea: Trachea midline, supple. Nose: Normal external anatomy. Mouth: Moist mucous membranes. Chest: Decreased air entry bilaterally. No wheezing or rhonchi. Cardiovascular: Positive S1, positive S2. Regular rate and rhythm. Abdomen: Positive bowel sounds in all 4 quadrants. Soft, non-tender, non- distended. : Deferred. Rectal: Deferred. Skin: Warm, dry. Intact. Extremities: 2+ radial pulses bilaterally. No lower extremity edema. Neuro: Awake, alert, oriented x3. No gross motor or sensory deficits. Cranial nerves II through XII intact. Gait not assessed. laboratory and microbiology Laboratory Tests 12/20/24 05:05 Test 12/20/24 05:05 Range/Units Serum Glucose 98 74-106 mg/dL Assessment/Plan Impression: Acute hypoxic respiratory failure Pleural effusion Ascites Atelectasis Pelvic mass Metabolic encephalopathy End-stage renal disease, on hemodialysis Congestive heart failure Diabetes mellitus type II Events: Currently on supplemental oxygen On 2 LPM nasal cannula Taper O2 as tolerated Hemodialysis per Nephrology. Nephro recs appreciated Incentive spirometry Accu-Cheks, ISS HD per Nephrology Monitor blood pressure Monitor renal function. Monitor electrolytes. Supplement as necessary. Protonix BID for GI prophylaxis Status post paracentesis 12/17/24 with removal of 1150 mL ascites fluid. Pleural effusion reviewed. Limited chest US revealed Ascitic fluid below diaphragm and above liver. Not amenable for Thoracentesis or paracentesis. Dispo: Per hospitalist. Labs and imaging reviewed. Rest of plan as noted below. Plan: Supplemental oxygen Titrate to keep O2 sats above 92%. Incentive spirometry Eliquis BID Accu-Cheks, ISS Pain control Avoid oversedation HD per Nephrology Monitor renal function. Monitor electrolytes. Supplement as necessary. Monitor ins and outs. GI/DVT prophylaxis. Prognosis: Poor given patient's multiple co-morbidities. Rest of plan per hospitalist and other consultants. Thank you, Dr. Leger, for allowing me to participate in this patient's care. Further recommendations will depend on the patient's clinical course. Please do not hesitate to contact me if you have any questions or concerns. This medical document was created using an electronic medical record system with [employer] dictation system. Although these documentations are being carefully reviewed, there may still be some phonetic and typographical changes. The errors are purely typographical, due to imperfection on the software program, and do not reflect any compromise in the patient's medical care. Dietary Evaluation Review Comments: 1. Nephro-helen 1 tab daily 2. CCHO 60 + renal diet 3. Nepro Carb Steady 240ml daily (ordered per ONS protocol) 4. Continue current plan of care Expected Outcomes/Goals: Pt will meet 75% estimated needs Fu 3-5 days Plan discussed with: Other (RACHEL Hensley) DEONDRE ALARCON MD December 21, 2024 21:19
== END 2024-12-21 12:18 | DRG 640 ==
LOC: ER 22:43 → EDBD 22:43 → OVERFLOW 12-14 09:42 → TELE-WESTW 12-14 20:46
PROVIDERS: ADMIT Internal Medicine Geriatric Medicine; ATTEND Internal Medicine Geriatric Medicine
PROC: 5A1D70Z Performance of Urinary Filtration, Intermittent, Less than 6 Hours Per Day (ICD-10-PCS; principal; 2024-12-14)
PROC: 5A1D70Z Performance of Urinary Filtration, Intermittent, Less than 6 Hours Per Day (ICD-10-PCS; 2024-12-15)
PROC: 5A1D70Z Performance of Urinary Filtration, Intermittent, Less than 6 Hours Per Day (ICD-10-PCS; 2024-12-17)
PROC: 0W9G3ZZ Drainage of Peritoneal Cavity, Percutaneous Approach (ICD-10-PCS; 2024-12-17)
PROC: 5A1D70Z Performance of Urinary Filtration, Intermittent, Less than 6 Hours Per Day (ICD-10-PCS; 2024-12-20)
DX: E87.5 Hyperkalemia (principal); G93.41 Metabolic encephalopathy; J96.01 Acute respiratory failure with hypoxia; N18.6 End stage renal disease; I21.A1 Myocardial infarction type 2; R18.8 Other ascites; J98.11 Atelectasis; I48.92 Unspecified atrial flutter; I13.2 Hypertensive heart and chronic kidney disease with heart failure and with stage 5 chronic kidney disease, or end stage renal disease; D25.9 Leiomyoma of uterus, unspecified; K21.9 Gastro-esophageal reflux disease without esophagitis; E11.22 Type 2 diabetes mellitus with diabetic chronic kidney disease; I50.9 Heart failure, unspecified; E11.649 Type 2 diabetes mellitus with hypoglycemia without coma; F41.9 Anxiety disorder, unspecified; I48.91 Unspecified atrial fibrillation; D63.1 Anemia in chronic kidney disease; E78.5 Hyperlipidemia, unspecified; E66.9 Obesity, unspecified; Z88.5 Allergy status to narcotic agent; Z79.4 Long term (current) use of insulin; Z79.899 Other long term (current) drug therapy; Z79.01 Long term (current) use of anticoagulants; Z80.0 Family history of malignant neoplasm of digestive organs; Z82.49 Family history of ischemic heart disease and other diseases of the circulatory system; Z68.30 Body mass index [BMI] 30.0-30.9, adult; Z99.81 Dependence on supplemental oxygen; Z99.2 Dependence on renal dialysis; Z87.11 Personal history of peptic ulcer disease
CPT/HCPCS: 36415; 49082; 74176; 76856; 80048; 80053; 80061; 80074; 80202; 82728; 82962; 83036; 83540; 83550; 83690; 83735; 83986; 84132; 84443; 84484; 85025; 85610; 87081; 87205; 89051; 90935; 93005; 94640; 96365; 96375; 97163; 99291; A4565; G0378; J1815; J2405; P9047

== ENCOUNTER 2025-03-22 18:54 | Inpatient (IN) | payer MEDICARE, OTHER ==
[~2025-03-22] VITALS: Ht 165.1 cm; Wt 80.3 kg
[~2025-03-22 18:54] MED LIST: AMLO1TAB22 PO; APIX2.5T PO; ATOR20TA50 PO; BUME2TAB5 PO; CARV25TA55 PO; INSREG3 SC; INSU1INJ4 SC; INSUINJ2 SC; INSUINJ37 SC; OMEP-448 PO; PANT40T PO; SUCR1TAB PO; TRAM50TA2 PO
[2025-03-22] MEDS ORDERED: PANTOPRAZOLE 40 MG TAB PO ONE (19:15)
[2025-03-22] MEDS: SUCRALFATE 1 GM TAB PO ONE (19:15)
--- NOTE | 2025-03-22 19:16 | ED.PDOC ---
GI ASSESSMENT HPI Comments 74-year-old female brought in by EMS presents with a chief complaint of abdominal pain x 2 hours with associated nausea. Patient states that her pain is localized to her epigastric region, nonradiating, nonexertional. Patient is coming from [facility] where she was supposed to receive rehabilitation for her strength. Patient is on dialysis and last completed a full session yesterday. Patient does not make any urine. PMHx: Generalized Weakness, Heart Failure, Oxygen Dependent, DM2, A-Fib, Anemia, HLD, Depression, HTN, Esophagitis, GERD, Gastric ulcer, Duodenal ulcer, Ascites PSHx: AV Fistula, Coronary Angioplasty, Defibrillator, Artificial Knee Joint Bilaterally HPI: Poor Historian. REVIEW OF SYSTEMS: CONSTITUTIONAL: Denies acute: fever, diaphoresis, chills, HEAD: Denies acute: headache, photophobia Eyes: Denies acute: Double vision, vision loss, eye pain, eye discharge. EARS: Denies acute: tinnitus, hearing loss, ear discharge, ear pain, THROAT: Denies acute: sore throat, swelling, difficulty swallowing , pain with swallowing, change in voice. NECK: Denies acute: neck pain, neck swelling, stiff neck. HEART: Denies acute : chest pain, palpitations, LUNGS: Denies acute: SOB, wheezing, cough, hemoptysis ABDOMEN: Denies acute: Vomiting, diarrhea, melena , hematemesis, hematochezia SKIN: Denies acute: rash, redness, lesions, itchiness. EXTREMITIES: Denies acute: calf pain, numbness, tingling, weakness, denies pain in extremity. Denies acute: Low back pain. Neuro: Denies acute: focal neurological deficit, motor or sensory focal neurological deficit, tremors, seizure like activity, confusion, dizziness, change in mental status, loss of bowel or bladder function, cauda equina like symptoms. : Denies acute: dysuria, hematuria, flank pain, increase in urinary frequency. PSYCH: Denies acute: hallucination, suicidal ideation, homicidal ideation. FEMALE: Denies acute: abnormal vaginal bleeding, foul odor, unusual discharge. PHYSICAL EXAM: General: ---[id number]-----acute distress, awake and alert. Head: normocephalic, atraumatic. Neck: supple, trachea is midline, no swelling. Throat: Normal phonation. Eyes:, no erythema, no purulent discharge, no proptosis, no icterus. Heart: regular rate, regular rhythm, no significant murmur appreciated. Lungs: no apparent respiratory distress, Able to speak in full sentences. No wheezing, no rhonchi, no crackles. No stridors Clear to auscultation bilaterally. Abdomen: Epigastric tender to palpation, non distended, soft, no guarding, no rebound, + bowel sounds. Obese Neuro: Awake, Alert, oriented to name, self, situation, follows commands GCS=15. Speech is normal. Skin: no petechia, no purpura, no cyanosis, non-pale, not jaundice. Lower extremities: --trace bilateral - Pitting edema no deformity, no focal swelling, no calf TTP. Makes eye contact. moves all four extremities. Face: no apparent facial droop. ED COURSE: DISCLAIMER: This medical document was created using an electronic medical record system with voice recognition software and computerized dictation system. Although this document has been carefully reviewed, there might still be some phonetic and typographical errors. Occasional wrong-word or "sound-alike" substitutions may have occurred due to the inherent limitations of voice recognition software. These areas are purely typographical due to imperfections of the software programs and do not reflect any compromise in the patient's medical care. Please read the chart carefully and recognize, using context, where these substitutions have occurred. Chief Complaint: Abdominal Pain Time Seen by MD: 18:59 Reviewed Notes: Medications, Allergies Allergies: Coded Allergies: Lidocaine (Verified Allergy, Unknown, 12/13/24) Home Meds Reported Medications Sucralfate (Sucralfate) 1 Gm Tab, 1 TAB PO QID for 30 Days, #120 03/24/25 Omeprazole (Omeprazole Dr) 40 Mg Cap, 1 CAP PO DAILY for 60 Days, #60 03/24/25 Tramadol Hcl (Tramadol Hcl) 50 Mg Tab, 1 TAB PO Q6HPRN for 30 Days, #120 03/24/25 Insulin Regular (Human) (Humulin R) 100 Unit/Ml Inj, UNITS SC UD for 16 Days, #10 03/24/25 Insulin Glargine (Lantus Solostar) 100 Unit/Ml Inj, UNITS SC UD for 10 Days, #3 03/24/25 Apixaban Base (ELIQUIS) 2.5 Mg Tab, 1 TAB PO BID for 14 Days, #28 12/14/24 Bumetanide (Bumetanide) 2 Mg Tab, 1 TAB PO BID 12/14/24 Amlodipine Besylate (Amlodipine Besylate) 5 Mg Tab, 1 TAB PO DAILY for 31 Days, #31 12/14/24 Carvedilol (Carvedilol) 25 Mg Tab, 1 TAB PO BID for 31 Days, #62 12/14/24 Atorvastatin Calcium (ATORVASTATIN CALCIUM) 20 Mg Tab, 1 TAB PO HS for 31 Days, #12/14/24 Information Source: Patient, Emergency Med Personnel Mode of Arrival: EMS Past Medical History 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 Was a procedure done?: No GI differential Dx Differential Diagnosis: Other (DDX include Diverticulitis, colitis, gastroenteritis, acute abdomen, SBO, enteritis, constipation, volvulus, appendicitis, Gallbladder disease, choledocolithiasis, ascending cholangitis, pancreatitis, intraAbdominal mass/neoplasm, hepatitis, UTI, pylonephritis, kidney stone, aneurysm, dissection, Inflammatory bowel disease, gastroparesis, ischemic bowel, ovarian torsion, ovarian cyst/mass, tubo-ovarian abscess, PID, STD.) X-Ray, Labs, Meds, VS Vital Signs Date Time Temp Pulse Resp B/P (MAP) Pulse Ox O2 Delivery O2 Flow Rate FiO2 03/22/25 20:00 106 03/22/25 19:07 90 03/22/25 19:04 98.0 68 20 110/60 96 98.0 Lab Test 03/22/25 22:50 03/22/25 20:54 03/22/25 19:59 Range/Units Troponin I High Sensitivity 342 *H 311 *H 298 *H </=34 ng/L White Blood Count 5.7 4.4-10.8 10^3/uL Red Blood Count 3.11 L 4.0-5.20 10^6/uL Hemoglobin 9.4 L 12.2-16.2 g/dL Hematocrit 29.0 L 36.0-46.0 % Mean Corpuscular Volume 93.1 80.0-100.0 fL Mean Corpuscular Hemoglobin 30.2 28.0-32.0 pg Mean Corpuscular Hemoglobin Concent 32.4 32.0-36.0 g/dL Red Cell Distribution Width 19.9 H 11.8-14.3 % Platelet Count 211 140-450 10^3/uL Mean Platelet Volume 7.9 6.9-10.8 fL Neutrophils (%) (Auto) 74.1 37.0-80.0 % Lymphocytes (%) (Auto) 12.6 10.0-50.0 % Monocytes (%) (Auto) 10.6 0.0-12.0 % Eosinophils (%) (Auto) 1.9 0.0-7.0 % Basophils (%) (Auto) 0.8 0.0-2.0 % Neutrophils # (Auto) 4.2 1.6-8.6 10 ^3/uL Lymphocytes # (Auto) 0.7 0.4-5.4 10 ^3/uL Monocytes # (Auto) 0.6 0-1.3 10 ^3/uL Eosinophils # (Auto) 0.1 0-0.8 10 ^3/uL Basophils # (Auto) 0 0-0.2 10 ^3/uL Nucleated Red Blood Cells 0.1 % Sodium Level 135 L 136-145 mmol/L Potassium Level 4.2 3.5-5.1 mmol/L Chloride Level 95 L 98-107 mmol/L Carbon Dioxide Level 31 20-31 mmol/L Anion Gap 9 5-15 Blood Urea Nitrogen 18 9-23 mg/dL Creatinine 4.39 H 0.550-1.02 mg/dL Glomerular Filtration Rate Calc 10 >90 mL/min BUN/Creatinine Ratio 4.1 L 10.0-20.0 Serum Glucose 149 H 74-106 mg/dL Lactic Acid Level 2.0 0.4-2.0 mmol/L Calcium Level 9.2 8.7-10.4 mg/dL Total Bilirubin 0.4 0.2-1.0 mg/dL Aspartate Amino Transferase (AST) 18 13-40 U/L Alanine Aminotransferase (ALT) 11 7-40 U/L Alkaline Phosphatase 117 H 46-116 U/L B-Type Natriuretic Peptide 4659.49 0-100 pg/mL Total Protein 7.1 5.7-8.2 g/dL Albumin 3.9 3.2-4.8 g/dL Lipase 23 12-53 U/L [place] [address] Ph: [phone] DIAGNOSTIC IMAGING Diagnostic Imaging Report : [id number] Signed PATIENT: BRENDA BEARDEN ACCT: [id number] UNIT: [id number] : 1950 LOC: ER ROOM / BED: / AGE / SEX: 74 / F ADM STATUS: REG ER SERVICE 04 ORDERING PHYSICIAN: ANJANA CASTILLO DO PROCEDURE(s): ABPL - CT AB PEL WO CON-NO ORAL OR IV REASON: epig pain ORDER NUMBER(s): [id number], ACCESSION NUMBER(s): [id number] Exam: CT CT AB PEL WO CON-NO ORAL OR IV History: epig pain Comparison Study: US PELVIC on DOS: 12/15/24, CT CT AB PEL WO CON-NO ORAL OR IV on DOS: 12/14/24 TECHNIQUE: Multidetector CT of the abdomen was performed from lung bases to pubic symphysis. Imaging was performed without IV contrast. Axial, coronal and sagittal multiplanar reformats were obtained from the axial data set by the technologist. Radiation Dose Information: CT Dose: CTDI volume is 22.95 mGy. Dose-length product is 1159.81 mGy*cm FINDINGS: Evaluation of solid organs is limited due to lack of intravenous contrast use. Findings: Lung Bases: Small right pleural effusion with atelectasis in the right base. Liver: The liver is normal in size. No focal lesions. Gallbladder and Biliary Tree: Unremarkable Spleen: Unremarkable Pancreas: The pancreas is grossly normal in appearance. Adrenal Glands: Unremarkable Kidneys: Bilateral renal cysts with punctate calcifications no hydronephrosis Bladder: Grossly unremarkable for degree of distention. Bowel: The stomach is grossly normal in appearance. Small bowel and colon are normal in caliber and distribution. The appendix is not visualized; however, no secondary findings of acute appendicitis identified. Ascites: Ascites scattered throughout the abdomen Lymphadenopathy: No mesenteric, retroperitoneal or periportal lymphadenopathy. Abdominal Wall and Mesentery: Unremarkable. Vasculature: The visualized abdominal aorta is normal in size and caliber. Evaluation of abdominal and pelvic vessels is limited due to lack of intravenous contrast. Pelvic Organs: Enlarged uterus measuring 18.3 by 6.8 cm with calcifications in the wall may represent calcified uterine fibroids consider pelvic ultrasound for further evaluation. Musculoskeletal: No aggressive focal bony lesions, acute fractures or dislocation. Soft tissues: Subcutaneous edema. IMPRESSION: 1. Enlarged uterus with calcifications in the wall 18.3 by 7 cm. Consider pelvic ultrasound to evaluate for uterine enlargement fibroids. 2. Ascites scattered throughout the abdomen and pelvis. 3. Small right pleural effusion with atelectasis in the right base. 4. Renal cysts bilaterally with punctate calcifications no hydronephrosis. 5. 2 cm ascites in the right inguinal canal. HS:Y Radiation optimization: All CT scans at this facility use at least one of these dose optimization techniques: automated exposure control mA and/or kV adjustment per patient size (includes targeted exams where dose is matched to clinical indication) or iterative reconstruction. ATED BY: JOSE JUAN SOLIS Jr., DO DICTATED DATE/TIME: 03/22/252118 SIGNED BY: JOSE JUAN SOLIS Jr., SIGNED DATE/TIME: 03/22/252118 CC: Time of 1ST Reevaluation: 19:29 Reevaluation 1ST: Unchanged Time of 2ND Reevaluation: 20:47 (Given the patient's history of gastric ulcer presenting with epigastric abdominal pain, I did not give any aspirin for the elevated troponin. Patient denies any chest pain or shortness of breath.) Time of 3RD Reevaluation: 21:33 (The case was discussed with the [facility] admitting team (HPI, physical exam, labs and diagnostic tests that were available at the time of disposition, ED course, treatment plan) on the phone. They authorized us to admit the patient to our facility further evaluation and treatment given her rising troponin level. Patient denies chest pain or shortness of breath.. Dr. valente--. Authorization number is--[id number]) Patient Education/Counseling: Diagnosis, Treatment Family Education/Counseling: No Family Present Comments MDM: patient presented with the above HPI.----abdominal pain--workup was initiated. patient was found with the above mentioned diagnosis. the following medications were ordered: please refer to order lists of meds and tests obtained by myself Dr. Castillo. Patient ED course and VS have been stabilized. Patient has been reassessed in the ED and remained in a stable condition. Pertinent incidental findings were discussed with the patient and/or family. Patient/family voices understanding and is agreeable with plan. Patient has been observed in the ED adequate length of time to insure improvement/stability. Escalation of care considered: Consideration of escalation to observation or admission Patient was given GI cocktail. Patient was ADMITTED to the medicine team for further evaluation and treatment of their presentation. Given the patient's history of gastric duodenal ulcer presenting with epigastric pain I withheld given any NSAIDs at this time. All the reports of any imaging studies that were ordered by myself were reviewed by myself. Departure 1 Departure Time of Disposition: 20:48 Impression: Primary Impression: Epigastric pain Additional Impressions: Elevated troponin Ascites Enlarged uterus Disposition: ADMITTED INPATIENT Admit to: Tele Condition: Guarded Discharged With: Self Critical Care Note Critical Care Time?: Yes (45 min-critical care time only) I personally scribed for ANJANA CASTILLO DO ([email or web address]) on 03/22/25 at 19:16. Electro nically submitted by Chase Hughes ([email or web address]). I personally scribed for ANJANA CASTILLO DO ([email or web address]) on 03/22/25 at 21:31. Electronically submitted by Chase Hughes ([email or web address]). ANJANA CASTILLO DO Mar 22, 2025 19:16
--- NOTE | 2025-03-22 19:29 | ECG ---
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
[2025-03-22] MEDS: ONDANSETRON HCL 4 MG/2 ML VIAL IV ONE (20:15)
[2025-03-22 20:16] LABS: Hematocrit 29.0 % (36.0-46.0); Hemoglobin 9.4 g/dL (12.2-16.2); Mean Corpuscular Hemoglobin 30.2 pg (28.0-32.0); Mean Corpuscular Volume 93.1 fL (80.0-100.0); Nucleated Red Blood Cells % 0.1 %
[2025-03-22 20:28] LABS: Alanine Aminotransferase 11 U/L (7-40); Albumin 3.9 g/dL (3.2-4.8); Anion Gap 9 (5-15); BUN/Creatinine Ratio 4.1 (10.0-20.0); Blood Urea Nitrogen 18 mg/dL (9-23); Calcium 9.2 mg/dL (8.7-10.4); Carbon Dioxide 31 mmol/L (20-31); Potassium 4.2 mmol/L (3.5-5.1); Total Protein 7.1 g/dL (5.7-8.2)
[2025-03-22 20:29] LABS: Bilirubin, Total 0.4 mg/dL (0.2-1.0)
[2025-03-22 20:31] LABS: Alkaline Phosphatase 117 U/L (46-116); Chloride 95 mmol/L (98-107); Glucose 149 mg/dL (74-106); Sodium 135 mmol/L (136-145)
[2025-03-22 20:45] LABS: Lipase 23 U/L (12-53)
--- NOTE | 2025-03-22 21:21 | DVH ---
Exam: CT CT AB PEL WO CON-NO ORAL OR IV History: epig pain Comparison Study: US PELVIC on DOS: 12/15/24, CT CT AB PEL WO CON-NO ORAL OR IV on DOS: 12/14/24 TECHNIQUE: Multidetector CT of the abdomen was performed from lung bases to pubic symphysis. Imaging was performed without IV contrast. Axial, coronal and sagittal multiplanar reformats were obtained fr om the axial data set by the technologist. Radiation Dose Information: CT Dose: CTDI volume is 22.95 mGy. Dose-length product is 1159.81 mGy*cm FINDINGS: Evaluation of solid organs is limited due to lack of intravenous contrast use. Findings: Lung Bases: Small right pleural effusion with atelectasis in the right base. Liver: The liver is normal in size. No focal lesions. Gallbladder and Biliary Tree: Unremarkable Spleen: Unremarkable Pancreas: The pancreas is grossly normal in appearance. Adrenal Glands: Unremarkable Kidneys: Bilateral renal cysts with punctate calcifications no hydronephrosis Bladder: Grossly unremarkable for degree of distention. Bowel: The stomach is grossly normal in appearance. Small bowel and colon are normal in caliber and d istribution. The appendix is not visualized; however, no secondary findings of acute appendicitis id entified. Ascites: Ascites scattered throughout the abdomen Lymphadenopathy: No mesenteric, retroperitoneal or periportal lymphadenopathy. Abdominal Wall and Mesentery: Unremarkable. Vasculature: The visualized abdominal aorta is normal in size and caliber. Evaluation of abdominal a nd pelvic vessels is limited due to lack of intravenous contrast. Pelvic Organs: Enlarged uterus measuring 18.3 by 6.8 cm with calcifications in the wall may represent calcified uterine fibroids consider pelvic ultrasound for further evaluation. Musculoskeletal: No aggressive focal bony lesions, acute fractures or dislocation. Soft tissues: Subcutaneous edema. IMPRESSION: 1. Enlarged uterus with calcifications in the wall 18.3 by 7 cm. Consider pelvic ultrasound to evalu ate for uterine enlargement fibroids. 2. Ascites scattered throughout the abdomen and pelvis. 3. Small right pleural effusion with atelectasis in the right base. 4. Renal cysts bilaterally with punctate calcifications no hydronephrosis. 5. 2 cm ascites in the right inguinal canal. HS:Y Radiation optimization: All CT scans at this facility use at least one of these dose optimization davis hniques: automated exposure control mA and/or kV adjustment per patient size (includes targeted exam s where dose is matched to clinical indication) or iterative reconstruction.
[2025-03-22] MEDS: PANTOPRAZOLE 40 MG/10 ML VIAL INJ IV ONE (23:28)
[2025-03-23] MEDS ORDERED: NITROGLYCERIN 0.4 MG SL TAB SL PRN
[2025-03-23] MEDS ORDERED: MORPHINE SULFATE INJ 2 MG/ml SYRG IV PRN
[2025-03-23 00:05] VITALS: PULSE 78; RESP 20; O2SAT 97
[2025-03-23] MEDS ORDERED: HYDROcodone-ACET 5/325MG TAB PO PRN (00:15)
[2025-03-23] MEDS ORDERED: DEXTROSE (50%) 50ML SYRG IV PRN (00:15)
--- NOTE | 2025-03-23 00:31 | DVHHP2 ---
History of Present Illness Reason for Visit: Abdominal cramping History of Present Illness 74-year-old female presents for evaluation of abdominal cramping. Patient reports having history of chronic constipation. She states that today at [facility] she was given magnesium citrate and soon after she developed severe cramping and pain. Patient reports being dialysis dependent. On arrival patient was noted to have elevated troponin levels. She denies chest pain or shortness for breath. Past Medical History Congestive heart failure, diabetes mellitus, AFib, anemia, end-stage renal disease Past Surgical History Right AV fistula, left chest dialysis catheter, defibrillator Family History Noncontributory Smoke: No ALCOHOL: none Drugs: None Lives: [facility] Review of Systems Review of Systems Review of systems are currently negative otherwise addressed in HPI. Allergies: Coded Allergies: Lidocaine (Verified Allergy, Unknown, 12/13/24) Morphine (Verified Allergy, Unknown, 12/13/24) Medications Current Medications Medications Dose Ordered Sig/June Route Start Time Stop Time Status Last Admin Dose Admin Nitroglycerin 0.4 mg Q5MINP PRN SL 03/23/25 00:00 Morphine Sulfate 2 mg Q30M PRN IV 03/23/25 00:00 UNV Carvedilol 25 mg Q12HR PO 03/23/25 10:00 UNV Pantoprazole Sodium 40 mg DAILY@0600 PO 03/23/25 06:00 UNV Docusate Sodium 100 mg BID PO 03/23/25 10:00 UNV Aspirin 162 mg DAILY PO 03/23/25 10:00 UNV Atorvastatin Calcium 20 mg HS PO 03/23/25 22:00 UNV Amlodipine Besylate 5 mg DAILY PO 03/23/25 10:00 UNV Apixaban 2.5 mg BID PO 03/23/25 10:00 UNV Furosemide 40 mg DAILY PO 03/23/25 10:00 UNV Diagnostic Test (Pha) 1 strip ACHS 03/23/25 07:00 UNV Insulin Human Regular ACHS SC 03/23/25 07:00 UNV Dextrose 50 ml UD PRN IV 03/23/25 00:15 UNV Acetaminophen/ Hydrocodone Bitart 1 tab Q4HP PRN PO 03/23/25 00:15 UNV Ondansetron HCl 4 mg Q4HP PRN IV 03/23/25 00:15 UNV Acetaminophen 650 mg Q6HP PRN PO 03/23/25 00:15 UNV Morphine Sulfate 2 mg Q6HPRN PRN IV 03/23/25 00:15 UNV Exam Vital Signs Vital Signs Date Time Temp Pulse Resp B/P (MAP) Pulse Ox O2 Delivery O2 Flow Rate FiO2 03/23/25 00:05 98.1 78 20 135/87 (103) 97 98.1 03/23/25 00:05 Room Air* 0 21 Exam Gen: 74-year-old female in mild distress Skin: Warm, dry, normal color and texture, no rash. HEENT: Normocephalic atraumatic, mucous membranes moist and pink. Neck: Cervical and supraclavicular nodes normal without enlargement, trachea is midline, thyroid gland is normal without masses. Pulmonary: Clear to auscultation and percussion bilaterally. Cardiac: Regular rate and rhythm. No murmur Abdomen: Soft, nontender, mild distention, bowel sounds present all 4 quadrants, no guarding, no rigidity, no organomegaly. Extremities: No cyanosis, clubbing, no edema Neuro: Cranial nerves II through XII grossly intact, normal affect and speech, no focal motor deficits. Labs/Xrays ORDERING PHYSICIAN: ANJANA CASTILLO DO PROCEDURE(s): ABPL - CT AB PEL WO CON-NO ORAL OR IV REASON: epig pain ORDER NUMBER(s): [id number], ACCESSION NUMBER(s): [id number] Exam: CT CT AB PEL WO CON-NO ORAL OR IV History: epig pain Comparison Study: US PELVIC on DOS: 12/15/24, CT CT AB PEL WO CON-NO ORAL OR IV on DOS: 12/14/24 TECHNIQUE: Multidetector CT of the abdomen was performed from lung bases to pubic symphysis. Imaging was performed without IV contrast. Axial, coronal and sagittal multiplanar reformats were obtained from the axial data set by the technologist. Radiation Dose Information: CT Dose: CTDI volume is 22.95 mGy. Dose-length product is 1159.81 mGy*cm FINDINGS: Evaluation of solid organs is limited due to lack of intravenous contrast use. Findings: Lung Bases: Small right pleural effusion with atelectasis in the right base. Liver: The liver is normal in size. No focal lesions. Gallbladder and Biliary Tree: Unremarkable Spleen: Unremarkable Pancreas: The pancreas is grossly normal in appearance. Adrenal Glands: Unremarkable Kidneys: Bilateral renal cysts with punctate calcifications no hydronephrosis Bladder: Grossly unremarkable for degree of distention. Bowel: The stomach is grossly normal in appearance. Small bowel and colon are normal in caliber and distribution. The appendix is not visualized; however, no secondary findings of acute appendicitis identified. Ascites: Ascites scattered throughout the abdomen Lymphadenopathy: No mesenteric, retroperitoneal or periportal lymphadenopathy. Abdominal Wall and Mesentery: Unremarkable. Vasculature: The visualized abdominal aorta is normal in size and caliber. Evaluation of abdominal and pelvic vessels is limited due to lack of intravenous contrast. Pelvic Organs: Enlarged uterus measuring 18.3 by 6.8 cm with calcifications in the wall may represent calcified uterine fibroids consider pelvic ultrasound for further evaluation. Musculoskeletal: No aggressive focal bony lesions, acute fractures or dislocation. Soft tissues: Subcutaneous edema. IMPRESSION: 1. Enlarged uterus with calcifications in the wall 18.3 by 7 cm. Consider pelvic ultrasound to evaluate for uterine enlargement fibroids. 2. Ascites scattered throughout the abdomen and pelvis. 3. Small right pleural effusion with atelectasis in the right base. 4. Renal cysts bilaterally with punctate calcifications no hydronephrosis. 5. 2 cm ascites in the right inguinal canal. HS:Y Radiation optimization: All CT scans at this facility use at least one of these dose optimization techniques: automated exposure control mA and/or kV adjustment per patient size (includes targeted exams where dose is matched to clinical indication) or iterative reconstruction. Labs Test 03/22/25 22:50 03/22/25 19:59 Range/Units Troponin I High Sensitivity 342 *H </=34 ng/L White Blood Count 5.7 4.4-10.8 10^3/uL Red Blood Count 3.11 L 4.0-5.20 10^6/uL Hemoglobin 9.4 L 12.2-16.2 g/dL Hematocrit 29.0 L 36.0-46.0 % Mean Corpuscular Volume 93.1 80.0-100.0 fL Mean Corpuscular Hemoglobin 30.2 28.0-32.0 pg Mean Corpuscular Hemoglobin Concent 32.4 32.0-36.0 g/dL Red Cell Distribution Width 19.9 H 11.8-14.3 % Platelet Count 211 140-450 10^3/uL Mean Platelet Volume 7.9 6.9-10.8 fL Neutrophils (%) (Auto) 74.1 37.0-80.0 % Lymphocytes (%) (Auto) 12.6 10.0-50.0 % Monocytes (%) (Auto) 10.6 0.0-12.0 % Eosinophils (%) (Auto) 1.9 0.0-7.0 % Basophils (%) (Auto) 0.8 0.0-2.0 % Neutrophils # (Auto) 4.2 1.6-8.6 10 ^3/uL Lymphocytes # (Auto) 0.7 0.4-5.4 10 ^3/uL Monocytes # (Auto) 0.6 0-1.3 10 ^3/uL Eosinophils # (Auto) 0.1 0-0.8 10 ^3/uL Basophils # (Auto) 0 0-0.2 10 ^3/uL Nucleated Red Blood Cells 0.1 % Sodium Level 135 L 136-145 mmol/L Potassium Level 4.2 3.5-5.1 mmol/L Chloride Level 95 L 98-107 mmol/L Carbon Dioxide Level 31 20-31 mmol/L Anion Gap 9 5-15 Blood Urea Nitrogen 18 9-23 mg/dL Creatinine 4.39 H 0.550-1.02 mg/dL Glomerular Filtration Rate Calc 10 >90 mL/min BUN/Creatinine Ratio 4.1 L 10.0-20.0 Serum Glucose 149 H 74-106 mg/dL Lactic Acid Level 2.0 0.4-2.0 mmol/L Calcium Level 9.2 8.7-10.4 mg/dL Total Bilirubin 0.4 0.2-1.0 mg/dL Aspartate Amino Transferase (AST) 18 13-40 U/L Alanine Aminotransferase (ALT) 11 7-40 U/L Alkaline Phosphatase 117 H 46-116 U/L Total Protein 7.1 5.7-8.2 g/dL Albumin 3.9 3.2-4.8 g/dL Lipase 23 12-53 U/L SEPSIS Sepsis Screen Date sepsis recognized/suspect: Mar 23, 2025 Time Sepsis recognized/suspect: 0009 Recent Procedure: No On Antibiotic Therapy: No Respiratory Rate >20: No Heart Rate >90: No Temp<36 C (96.8 F) or >38.3 C: No SBP <90 or MAP <65 mmHG: No New Acute Mental Status Change: No Is the patient on CPAP, BIPAP,: No Physician Orders Driver License Technician (03/22/25 ) Ct Ab Pel Wo Con-No Oral Or Iv (03/22/25 19:05) Admit (03/22/25 23:58) Nitroglycerin Sublingual (Ntrostat Subli (03/23/25 00:00) Morphine Sulfate Injection (03/23/25 00:00) Stat Ekg For Chest Pain (03/22/25 23:58) Notify Md Of Changes From Base (03/22/25 23:58) Soccer Player For 24 Hours (03/22/25 23:58) Emergency Dysrhythmia Protocol (03/22/25 23:58) Rhythm Strips Once Every Shift (03/22/25 23:58) Oxygen By Nasal Cannula (03/22/25 23:58) *[facility] (03/23/25 00:07) B-Type Natriuretic Peptide (03/23/25 00:07) Carvedilol Tablet (Coreg Tablet) (03/23/25 10:00) Pantoprazole Tablet (Protonix Tablet) (03/23/25 06:00) Docusate Sodium Capsule (Colace Capsule) (03/23/25 10:00) Aspirin Tablet (03/23/25 10:00) Atorvastatin (Lipitor) (03/23/25 22:00) Amlodipine Tablet (Norvasc Tablet) (03/23/25 10:00) Apixaban (Eliquis) (03/23/25 10:00) Furosemide Tablet (Lasix Tablet) (03/23/25 10:00) Basic Metabolic Panel (03/24/25 04:00) Glucose Blood (Accu-Chek Comfort Curve T (03/23/25 07:00) Insulin R (Human) (Insulin R) (03/23/25 07:00) Dextrose 50% Syringe (03/23/25 00:15) Renal Standard(2gna,3gk,Lopho) (03/23/25 Breakfast) Hydrocodone-Acet 5/325mg Tab ([place] 5/32 (03/23/25 00:15) Ondansetron Hcl (Zofran) (03/23/25 00:15) Complete Blood Count (03/24/25 04:00) Echo 2d Mode Cardiac Dop (03/23/25 00:07) Condition: Fair (03/23/25 00:07) Acetaminophen Tablet (Tylenol Tablet) (03/23/25 00:15) Bedrest With Bathroom Privileg (03/23/25 00:07) Morphine Sulfate Injection (03/23/25 00:15) * Cardiology Consult (03/23/25 00:07) Vital Signs Date Time Temp Pulse Resp B/P (MAP) Pulse Ox O2 Delivery O2 Flow Rate FiO2 03/23/25 00:05 98.1 78 20 135/87 (103) 97 98.1 03/23/25 00:05 78 20 97 Room Air* 0 21 03/22/25 19:07 90 03/22/25 19:04 98.0 68 20 110/60 96 98.0 Laboratory Tests Test 03/22/25 19:59 Lactic Acid Level 2.0 mmol/L (0.4-2.0) White Blood Count 5.7 10^3/uL (4.4-10.8) Medications Medications Dose Ordered Sig/June Route Start Time Stop Time Status Last Admin Dose Admin Ondansetron HCl 8 mg ONCE ONCE IV 03/22/25 20:15 03/22/25 20:16 DC 03/22/25 20:15 8 MG Pantoprazole Sodium 40 mg ONCE ONCE IV 03/22/25 23:30 03/22/25 23:31 DC 03/22/25 23:28 40 MG Assessment/Plan Assessment/Plan Assessment Elevated troponin Abdominal pain Constipation Hypertension End-stage renal disease, dialysis dependent Plan Admit the patient to telemetry to the hospitalist Cardiology consultation Echocardiogram pending Nephrology consultation Resume home medications Continue treatment per orders. Plan discussed with: Patient My Orders Orders - TABATHA MACKAY Procedure Category Date Status Time Admit ADMIT 03/22/25 Transmitted 23:58 Nitroglycerin PHA 03/23/25 In Process Sublingual (Ntrostat 00:00 Morphine Sulfate PHA 03/23/25 Pending Injection 00:00 Stat Ekg For Chest ALEJANDRO 03/22/25 In Process Pain 23:58 Notify Of Changes ALEJANDRO 03/22/25 In Process From Base 23:58 Soccer Player For ALEJANDRO 03/22/25 In Process 24 Hours 23:58 Emergency Dysrhythmia ALEJANDRO 03/22/25 In Process Protocol 23:58 Rhythm Strips Once ALEJANDRO 03/22/25 In Process Every Shift 23:58 Oxygen By Nasal RT 03/22/25 Transmitted Cannula 23:58 *[facility] CONS 03/23/25 Transmitted -[place] 00:07 B-Type Natriuretic LAB 03/23/25 In Process Peptide 00:07 Carvedilol Tablet PHA 03/23/25 Logged (Coreg Tablet) 10:00 Pantoprazole Tablet PHA 03/23/25 Logged (Protonix Tablet) 06:00 Docusate Sodium PHA 03/23/25 Logged Capsule (Colace 10:00 Aspirin Tablet PHA 03/23/25 Logged 10:00 Atorvastatin (Lipitor) PHA 03/23/25 Logged 22:00 Amlodipine Tablet PHA 03/23/25 Logged (Norvasc Tablet) 10:00 Apixaban (Eliquis) PHA 03/23/25 Logged 10:00 Furosemide Tablet PHA 03/23/25 Logged (Lasix Tablet) 10:00 Basic Metabolic Panel LAB 03/24/25 Verified 04:00 Glucose Blood PHA 03/23/25 Logged (Accu-Chek Comfort 07:00 Insulin R (Human) PHA 03/23/25 Logged (Insulin R) 07:00 Dextrose 50% Syringe PHA 03/23/25 Logged 00:15 Renal DIET 03/23/25 Transmitted Standard(2gna,3gk,Lopho) Breakfast Hydrocodone-Acet PHA 03/23/25 Logged 5/325mg Tab ([place] 00:15 Ondansetron Hcl PHA 03/23/25 Logged (Zofran) 00:15 Complete Blood Count LAB 03/24/25 Verified 04:00 Echo 2d Mode Cardiac US 03/23/25 Logged DOP 00:07 Condition: Fair ALEJANDRO 03/23/25 In Process 00:07 Acetaminophen Tablet PHA 03/23/25 Logged (Tylenol Tablet) 00:15 Bedrest With Bathroom ALEJANDRO 03/23/25 In Process Privileg 00:07 Morphine Sulfate PHA 03/23/25 Logged Injection 00:15 * Cardiology Consult CONS 03/23/25 Transmitted 00:07 Date of Service: Mar 22, 2025 Billing Provider: TABATHA MACKAY Common Visit Codes: [id number] INP/OBS CARE (HIGH) TABATHA MACKAY Mar 23, 2025 00:31
[2025-03-23] MEDS: PANTOPRAZOLE 40 MG TAB PO SCH (06:00)
[2025-03-23] MEDS: InsuLIN REG 1unit/0.01ml Soln (100units/ml) SC SCH (06:11)
[2025-03-23] MEDS: ACCU-CHEK COMFORT CURVE STRIP VI SCH (06:12)
[2025-03-23 08:30] VITALS: PULSE 78; RESP 17; O2SAT 99
[2025-03-23 10:37] VITALS: BP 131/63; PULSE 77; RESP 18; TEMP 98.8; O2SAT 97
[2025-03-23] MEDS: CARVEDILOL 12.5 MG TAB PO SCH (11:06)
[2025-03-23] MEDS: DOCUSATE SOD 100 MG CAP PO SCH (11:07)
[2025-03-23] MEDS: FUROSEMIDE 40 MG TAB PO SCH (11:07)
[2025-03-23] MEDS: APIXABAN 2.5 MG TAB PO SCH (11:07)
--- NOTE | 2025-03-23 11:07 | DVHINCON2 ---
Date Seen: Mar 23, 2025 Referring Physician INEZ Kim Reason for Consultation Elevated troponin History of Present Illness This is a 74-year-old female patient who presents to the emergency room with chief complaint of abdominal pain. The patient comes from [facility]. The patient reports abdominal pain for the last two days prompting staff to call EMS. The patient was brought to the emergency room for further evaluation. Cardiology has been consulted at this time for elevated troponin level. Initial twelve lead electrocardiogram reveals paced rhythm with underlying atrial fibrillation. Initial troponin level of 298ng/L with a slight up trend thereafter and peak level at 342ng/L. The patient denies any cardiac symptoms including chest pain, shortness of breath, or palpitations. Significant medical history includes coronary artery disease status post PTCA x2 LEYDA (on aspirin), unspecified atrial fibrillation/atrial flutter on low-dose Eliquis, unspecified congestive heart failure, presence of ICD [email or web address]), hypertension, dyslipidemia, insulin-dependent diabetes mellitus, end-stage renal disease on hemodialysis, and obesity. The patient reports her primary home based assistant is within the [facility] network. Past Medical History Past medical history reviewed. No other significant than mentioned above. Past Surgical History Bilateral knee replacement Family History: FH: colon cancer G8 MOTHER FH: heart attack G8 FATHER Family History Family history reviewed. Social History Patient has a five pack-year history, quit smoking approximately 20 years ago Denies any illicit drug use Denies any alcohol use Allergies: Coded Allergies: Lidocaine (Verified Allergy, Unknown, 12/13/24) Morphine (Verified Allergy, Unknown, 12/13/24) Home Meds Reported Medications Insulin NPH (Human) (Isophane) (Humulin N) 100 Unit/Ml Inj, 21 UNIT SC DAILY, INJ 12/14/24 Insulin NPH (Human) (Isophane) (Humulin N Kwikpen) 100 Unit/Ml Inj, 10 UNIT SC HS 12/14/24 Apixaban Base (ELIQUIS) 2.5 Mg Tab, 1 TAB PO BID 12/14/24 Bumetanide (Bumetanide) 2 Mg Tab, 1 TAB PO BID 12/14/24 Pantoprazole Sodium Sesquihydr (Pantoprazole Sodium) 40 Mg Tab, 1 TAB PO BID 12/14/24 Amlodipine Besylate (Amlodipine Besylate) 5 Mg Tab, 1 TAB PO DAILY 12/14/24 Carvedilol (Carvedilol) 25 Mg Tab, 1 TAB PO BID 12/14/24 Atorvastatin Calcium (ATORVASTATIN CALCIUM) 20 Mg Tab, 1 TAB PO HS 12/14/24 Home Meds Home medications reviewed. Current Medications Current Medications Medications (Trade) Dose Ordered Sig/June Route PRN Reason Start Time Stop Time Status Last Admin Nitroglycerin (Ntrostat Sublingual) 0.4 mg Q5MINP PRN SL FOR CHEST PAIN 03/23/25 00:00 Morphine Sulfate 2 mg Q30M PRN IV FOR CHEST PAIN 03/23/25 00:00 Hold Carvedilol (Coreg Tablet) 25 mg Q12HR PO 03/23/25 10:00 Pantoprazole Sodium (Protonix Tablet) 40 mg DAILY@0600 PO 03/23/25 06:00 03/23/25 06:00 Docusate Sodium (Colace Capsule) 100 mg BID PO 03/23/25 10:00 Aspirin 162 mg DAILY PO 03/23/25 10:00 Atorvastatin Calcium (Lipitor) 20 mg HS PO 03/23/25 22:00 Amlodipine Besylate (Norvasc Tablet) 5 mg DAILY PO 03/23/25 10:00 Apixaban (Eliquis) 2.5 mg BID PO 03/23/25 10:00 Furosemide (Lasix Tablet) 40 mg DAILY PO 03/23/25 10:00 Diagnostic Test (Pha) (Accu-Chek Comfort Curve T) 1 strip ACHS 03/23/25 07:00 03/23/25 06:12 Insulin Human Regular (InsuLIN R) ACHS SC 03/23/25 07:00 Dextrose 50 ml UD PRN IV Blood Sugar LESS THAN 60 03/23/25 00:15 Acetaminophen/ Hydrocodone Bitart ([place] 5/325MG Tab) 1 tab Q4HP PRN PO MODERATE PAIN (4-6 PAIN SCALE) 03/23/25 00:15 Ondansetron HCl (Zofran) 4 mg Q4HP PRN IV NAUSEA / VOMITING 03/23/25 00:15 Acetaminophen (Tylenol Tablet) 650 mg Q6HP PRN PO PAIN SCALE 1-3 OR TEMP>100.4 03/23/25 00:15 Morphine Sulfate 2 mg Q6HPRN PRN IV SEVERE PAIN (7-10 PAIN SCALE) 03/23/25 00:15 Hold Review of Systems Constitutional: No symptom reported Ears, Nose, & Throat: No symptom reported Eyes: No symptom reported Neurological: No symptoms reported Pulmonary/Respiratory: No symptoms reported Cardiovascular: No symptom reported Gastrointestinal: Abdominal pain Genitourinary: No symptom reported Musculoskeletal: No symptom reported Skin: No symptom reported Psychiatric: No symptom reported Endocrine: No symptom reported Hematologic/Lymphatic: No symptom reported Vital Signs Vital Signs Date Time Temp Pulse Resp B/P (MAP) Pulse Ox O2 Delivery O2 Flow Rate FiO2 03/23/25 10:37 98.8 77 18 131/63 (85) 97 98.8 03/23/25 08:30 Room Air* 0 21 Physical Exam General Appearance: Cooperative. Well-developed. Well-nourished. No acute distress. Pulmonary/Respiratory: Clear, bilateral breaths sounds. Cardiovascular/Chest: Regular rate and rhythm. Peripheral Pulses: 2+ Radial (R). 2+ Radial (L). 2+ Pedal (R). 2+ Pedal (L) Abdominal Exam: Normal bowel sounds. Ankle Exam: Negative ankle edema Lower extremities: Negative lower extremity edema Neuro/Mental Status: A/OX4, coherent. Thoughts/Psych: Normal thought pattern. Appropriate mood and affect. Good judgment and insight. Appearance: No acute distress. Skin Exam: Normal inspection. Normal color. Warm and dry. Right upper chest hemodialysis port. Labs/Diagnostic Data Labs Test 03/23/25 06:10 03/22/25 22:50 03/22/25 19:59 Range/Units POC Glucose 120 H 70-106 mg/dl Troponin I High Sensitivity 342 *H </=34 ng/L White Blood Count 5.7 4.4-10.8 10^3/uL Red Blood Count 3.11 L 4.0-5.20 10^6/uL Hemoglobin 9.4 L 12.2-16.2 g/dL Hematocrit 29.0 L 36.0-46.0 % Mean Corpuscular Volume 93.1 80.0-100.0 fL Mean Corpuscular Hemoglobin 30.2 28.0-32.0 pg Mean Corpuscular Hemoglobin Concent 32.4 32.0-36.0 g/dL Red Cell Distribution Width 19.9 H 11.8-14.3 % Platelet Count 211 140-450 10^3/uL Mean Platelet Volume 7.9 6.9-10.8 fL Neutrophils (%) (Auto) 74.1 37.0-80.0 % Lymphocytes (%) (Auto) 12.6 10.0-50.0 % Monocytes (%) (Auto) 10.6 0.0-12.0 % Eosinophils (%) (Auto) 1.9 0.0-7.0 % Basophils (%) (Auto) 0.8 0.0-2.0 % Neutrophils # (Auto) 4.2 1.6-8.6 10 ^3/uL Lymphocytes # (Auto) 0.7 0.4-5.4 10 ^3/uL Monocytes # (Auto) 0.6 0-1.3 10 ^3/uL Eosinophils # (Auto) 0.1 0-0.8 10 ^3/uL Basophils # (Auto) 0 0-0.2 10 ^3/uL Nucleated Red Blood Cells 0.1 % Sodium Level 135 L 136-145 mmol/L Potassium Level 4.2 3.5-5.1 mmol/L Chloride Level 95 L 98-107 mmol/L Carbon Dioxide Level 31 20-31 mmol/L Anion Gap 9 5-15 Blood Urea Nitrogen 18 9-23 mg/dL Creatinine 4.39 H 0.550-1.02 mg/dL Glomerular Filtration Rate Calc 10 >90 mL/min BUN/Creatinine Ratio 4.1 L 10.0-20.0 Serum Glucose 149 H 74-106 mg/dL Lactic Acid Level 2.0 0.4-2.0 mmol/L Calcium Level 9.2 8.7-10.4 mg/dL Total Bilirubin 0.4 0.2-1.0 mg/dL Aspartate Amino Transferase (AST) 18 13-40 U/L Alanine Aminotransferase (ALT) 11 7-40 U/L Alkaline Phosphatase 117 H 46-116 U/L B-Type Natriuretic Peptide 4659.49 0-100 pg/mL Total Protein 7.1 5.7-8.2 g/dL Albumin 3.9 3.2-4.8 g/dL Lipase 23 12-53 U/L Assessment NSTEMI likely type 2 Coronary artery disease status post PTCA x2 LEYDA (on aspirin) Ischemic cardiomyopathy Unspecified atrial fibrillation, controlled rate, on low-dose Eliquis Presence of ICD [email or web address]) Rule out structural heart disease Hypertension Dyslipidemia ESRD on HD Acute on chronic anemia Type 2 diabetes mellitus Obesity Plan/Recommendation We will continue with the following plan/recommendations (Dr. Kumari): Patient seen and examined at bedside with . We will proceed with obtaining a transthoracic echocardiogram to evaluate cardiac function. The patient denies any cardiac symptoms at time of assessment or prior to emergency room arrival. Given clinical presentation and twelve lead electrocardiogram, doubt ACS. Continue with single antiplatelet therapy and lipid-lowering agent. [id number] VASc score: 7 points, HAS-BLED score: 3 points. Continue with the patient's low-dose NOAC, Eliquis. Continue with close cardiac surveillance. Thank you for allowing us to care for this patient. Please call with any questions or concerns. Critical care time spent: 44 minute This medical document was created using an electronic medical record system with voice recognition software and computerized dictation system. Although this document has been carefully reviewed, there might still be some phonetic and typographical errors. Occasional wrong-word or ``sound-alike substitutions may have occurred due to the inherent limitations of voice recognition software. These areas are purely typographical due to imperfections of the software programs and do not reflect any compromise in the patient's medical care. Please read the chart carefully and recognize, using context, where these substitutions have occurred. Plan discussed with: Patient NYHA Physical activity limitations: NA Date of Service: Mar 23, 2025 Billing Provider: BONG BLISS Cardiology Common Codes: [id number] INP/OBS CARE (High) Cardiology Consultation Codes: [id number] CONSULT <45MIN BONG BLISS Mar 23, 2025 11:07
[2025-03-23 13:51] LABS: Hematocrit 28.0 % (36.0-46.0); Hemoglobin 8.9 g/dL (12.2-16.2); Mean Corpuscular Hemoglobin 30.2 pg (28.0-32.0); Mean Corpuscular Volume 94.9 fL (80.0-100.0); Nucleated Red Blood Cells % 0.1 %
[2025-03-23 14:01] LABS: Potassium 4.1 mmol/L (3.5-5.1)
[2025-03-23 14:02] LABS: Anion Gap 8 (5-15); Calcium 9.3 mg/dL (8.7-10.4); Carbon Dioxide 31 mmol/L (20-31)
[2025-03-23 14:04] LABS: Chloride 96 mmol/L (98-107); Sodium 135 mmol/L (136-145)
[2025-03-23 14:07] LABS: BUN/Creatinine Ratio 4.5 (10.0-20.0)
[2025-03-23 14:09] LABS: Magnesium 1.9 mg/dL (1.6-2.6)
[2025-03-23 14:10] LABS: Blood Urea Nitrogen 23 mg/dL (9-23); Glucose 114 mg/dL (74-106)
--- NOTE | 2025-03-23 14:40 | DVHPN2 ---
Progress Note Date Seen: Mar 23, 2025 Medical Necessity Reason Pt with a Central, PICC or Fol: No Subjective Patient reports: No new complaints Review of Systems: HEENT:Normal, CVS:Normal, RESPIRATORY:Normal, GI:Normal, :Normal, MSK:Normal, NEURO:Normal Objective vital signs Vital Sign Date Time Temp Pulse Resp B/P (MAP) Pulse Ox O2 Delivery O2 Flow Rate FiO2 03/23/25 12:06 76 114/51 03/23/25 12:00 17 99 03/23/25 10:37 98.8 98.8 03/23/25 08:30 Room Air* 0 21 medications Current Medications Medications Dose Ordered Sig/June Route Start Time Stop Time Status Last Admin Dose Admin Nitroglycerin 0.4 mg Q5MINP PRN SL 03/23/25 00:00 Morphine Sulfate 2 mg Q30M PRN IV 03/23/25 00:00 Hold Carvedilol 25 mg Q12HR PO 03/23/25 10:00 03/23/25 11:06 25 MG Pantoprazole Sodium 40 mg DAILY@0600 PO 03/23/25 06:00 03/23/25 06:00 40 MG Docusate Sodium 100 mg BID PO 03/23/25 10:00 03/23/25 11:07 100 MG Aspirin 162 mg DAILY PO 03/23/25 10:00 03/23/25 11:08 162 MG Atorvastatin Calcium 20 mg HS PO 03/23/25 22:00 Amlodipine Besylate 5 mg DAILY PO 03/23/25 10:00 03/23/25 11:07 5 MG Apixaban 2.5 mg BID PO 03/23/25 10:00 03/23/25 11:07 2.5 MG Furosemide 40 mg DAILY PO 03/23/25 10:00 03/23/25 11:07 40 MG Diagnostic Test (Pha) 1 strip ACHS 03/23/25 07:00 03/23/25 06:12 1 STRIP Insulin Human Regular ACHS SC 03/23/25 07:00 Dextrose 50 ml UD PRN IV 03/23/25 00:15 Acetaminophen/ Hydrocodone Bitart 1 tab Q4HP PRN PO 03/23/25 00:15 Ondansetron HCl 4 mg Q4HP PRN IV 03/23/25 00:15 Acetaminophen 650 mg Q6HP PRN PO 03/23/25 00:15 Morphine Sulfate 2 mg Q6HPRN PRN IV 03/23/25 00:15 Hold Examination: GENERAL:Normal, HEENT:Normal, NECK:Normal, LUNGS:Normal, LUNGS:Abnormal (on oxygen), CVS:Normal, ABDOMEN:Normal, MSK:Normal, SKIN:Normal, NEURO:Normal, :Normal laboratory and microbiology Laboratory Tests 03/23/25 13:28 Test 03/23/25 13:28 Range/Units Serum Glucose 114 H 74-106 mg/dL Problem List/Assessment/Plan Problem List/Assessment/Plan #1 abd pain: gi eval #2 fibroid uterine tumor #3 End-stage renal disease on hemodialysis #4 nstemi: per cardiology #5 s/p icd #6 cad s/p stent #7 atrial fibrillation: hold eliquis pending gi #8 Hypertension #9 Dyslipidemia #10 Type 2 diabetes #11 Chronic anemia of chronic kidney disease #12 chronic diastolic heart failure advance care planning- full code-time spent 19 mins unstable for transfer Plan discussed with: Patient My Orders My Orders Orders - TABATHA BURGOS MD Procedure Category Date Status Time * Gi Dvh [facility] CONS 03/23/25 Verified 14:33 Basic Metabolic Panel LAB 03/24/25 Verified 06:00 Complete Blood Count LAB 03/24/25 Verified 06:00 Chest Portable XY 03/23/25 Verified 14:33 Date of Service: Mar 23, 2025 Billing Provider: TABATHA BURGOS MD Common Visit Codes: [id number] INP/OBS CARE(HIGH) Secondary Visit Codes: 84787-[id number] CARE PLAN 30 MINUTES TABATHA BURGOS MD Mar 23, 2025 14:40
--- NOTE | 2025-03-23 15:35 | DVH ---
INDICATION: htn TECHNIQUE: Frontal view of the chest. COMPARISON: None FINDINGS: Tunneled right hemodialysis catheter. Left-sided pacemaker cardiomegaly. There is no evidence of ple ural disease. The lungs are clear. The bony structures of the chest are intact without fracture. IMPRESSION: 1. Cardiomegaly with CHF
--- NOTE | 2025-03-23 17:41 | DVHINCON2 ---
Date of service: Mar 23, 2025 Referring Physician Buzz Ryan Reason for Consultation Abdominal pain History of Present Illness 74-year-old female presents for evaluation of abdominal cramping. Patient reports having history of chronic constipation. She states that today at [facility] she was given magnesium citrate and soon after she developed severe cramping and pain. Patient reports being dialysis dependent. On arrival patient was noted to have elevated troponin levels. She denies chest pain or shortness for breath. Patient has been evaluated by cardiology consult for non- STEMI and elevated troponins Patient is currently getting 2D echo Past Medical History Past Medical History Congestive heart failure, diabetes mellitus, AFib, anemia, end-stage renal disease Past Surgical History Past Surgical History Right AV fistula, left chest dialysis catheter, defibrillator Family History: FH: colon cancer G8 MOTHER FH: heart attack G8 FATHER Allergies: Coded Allergies: Lidocaine (Verified Allergy, Unknown, 12/13/24) Morphine (Verified Allergy, Unknown, 12/13/24) Home Meds Reported Medications Insulin NPH (Human) (Isophane) (Humulin N) 100 Unit/Ml Inj, 21 UNIT SC DAILY, INJ 12/14/24 Insulin NPH (Human) (Isophane) (Humulin N Kwikpen) 100 Unit/Ml Inj, 10 UNIT SC HS 12/14/24 Apixaban Base (ELIQUIS) 2.5 Mg Tab, 1 TAB PO BID 12/14/24 Bumetanide (Bumetanide) 2 Mg Tab, 1 TAB PO BID 12/14/24 Pantoprazole Sodium Sesquihydr (Pantoprazole Sodium) 40 Mg Tab, 1 TAB PO BID 12/14/24 Amlodipine Besylate (Amlodipine Besylate) 5 Mg Tab, 1 TAB PO DAILY 12/14/24 Carvedilol (Carvedilol) 25 Mg Tab, 1 TAB PO BID 12/14/24 Atorvastatin Calcium (ATORVASTATIN CALCIUM) 20 Mg Tab, 1 TAB PO HS 12/14/24 Current Medications Current Medications Medications (Trade) Dose Ordered Sig/June Route PRN Reason Start Time Stop Time Status Last Admin Nitroglycerin (Ntrostat Sublingual) 0.4 mg Q5MINP PRN SL FOR CHEST PAIN 03/23/25 00:00 Morphine Sulfate 2 mg Q30M PRN IV FOR CHEST PAIN 03/23/25 00:00 Hold Carvedilol (Coreg Tablet) 25 mg Q12HR PO 03/23/25 10:00 03/23/25 11:06 Pantoprazole Sodium (Protonix Tablet) 40 mg DAILY@0600 PO 03/23/25 06:00 03/23/25 06:00 Docusate Sodium (Colace Capsule) 100 mg BID PO 03/23/25 10:00 03/23/25 11:07 Aspirin 162 mg DAILY PO 03/23/25 10:00 03/23/25 11:08 Atorvastatin Calcium (Lipitor) 20 mg HS PO 03/23/25 22:00 Amlodipine Besylate (Norvasc Tablet) 5 mg DAILY PO 03/23/25 10:00 03/23/25 14:36 DC 03/23/25 11:07 Apixaban (Eliquis) 2.5 mg BID PO 03/23/25 10:00 03/23/25 14:36 DC 03/23/25 11:07 Furosemide (Lasix Tablet) 40 mg DAILY PO 03/23/25 10:00 03/23/25 11:07 Diagnostic Test (Pha) (Accu-Chek Comfort Curve T) 1 strip ACHS 03/23/25 07:00 03/23/25 06:12 Insulin Human Regular (InsuLIN R) ACHS SC 03/23/25 07:00 Dextrose 50 ml UD PRN IV Blood Sugar LESS THAN 60 03/23/25 00:15 Acetaminophen/ Hydrocodone Bitart ([place] 5/325MG Tab) 1 tab Q4HP PRN PO MODERATE PAIN (4-6 PAIN SCALE) 03/23/25 00:15 Ondansetron HCl (Zofran) 4 mg Q4HP PRN IV NAUSEA / VOMITING 03/23/25 00:15 Acetaminophen (Tylenol Tablet) 650 mg Q6HP PRN PO PAIN SCALE 1-3 OR TEMP>100.4 03/23/25 00:15 Morphine Sulfate 2 mg Q6HPRN PRN IV SEVERE PAIN (7-10 PAIN SCALE) 03/23/25 00:15 Hold Vital Signs Vital Signs Date Time Temp Pulse Resp B/P (MAP) Pulse Ox O2 Delivery O2 Flow Rate FiO2 03/23/25 16:00 78 03/23/25 14:00 15 104/41 (62) 99 03/23/25 10:37 98.8 98.8 03/23/25 08:30 Room Air* 0 21 Physical Exam Gen: 74-year-old female in mild distress Skin: Warm, dry, normal color and texture, no rash. HEENT: Normocephalic atraumatic, mucous membranes moist and pink. Neck: Cervical and supraclavicular nodes normal without enlargement, trachea is midline, thyroid gland is normal without masses. Pulmonary: Clear to auscultation and percussion bilaterally. Cardiac: Regular rate and rhythm. No murmur Abdomen: Soft, nontender, mild distention, bowel sounds present all 4 quadrants, no guarding, no rigidity, no organomegaly. Extremities: No cyanosis, clubbing, no edema Neuro: Cranial nerves II through XII grossly intact, normal affect and speech, no focal motor deficits. Labs/Diagnostic Data Labs Test 03/23/25 13:28 03/23/25 13:25 03/23/25 11:42 03/23/25 06:10 Range/Units White Blood Count 5.0 4.4-10.8 10^3/uL Red Blood Count 2.95 L 4.0-5.20 10^6/uL Hemoglobin 8.9 L 12.2-16.2 g/dL Hematocrit 28.0 L 36.0-46.0 % Mean Corpuscular Volume 94.9 80.0-100.0 fL Mean Corpuscular Hemoglobin 30.2 28.0-32.0 pg Mean Corpuscular Hemoglobin Concent 31.8 L 32.0-36.0 g/dL Red Cell Distribution Width 20.5 H 11.8-14.3 % Platelet Count 206 140-450 10^3/uL Mean Platelet Volume 7.9 6.9-10.8 fL Neutrophils (%) (Auto) 72.6 37.0-80.0 % Lymphocytes (%) (Auto) 12.2 10.0-50.0 % Monocytes (%) (Auto) 10.2 0.0-12.0 % Eosinophils (%) (Auto) 3.8 0.0-7.0 % Basophils (%) (Auto) 1.2 0.0-2.0 % Neutrophils # (Auto) 3.6 1.6-8.6 10 ^3/uL Lymphocytes # (Auto) 0.6 0.4-5.4 10 ^3/uL Monocytes # (Auto) 0.5 0-1.3 10 ^3/uL Eosinophils # (Auto) 0.2 0-0.8 10 ^3/uL Basophils # (Auto) 0.1 0-0.2 10 ^3/uL Nucleated Red Blood Cells 0.1 % Sodium Level 135 L 136-145 mmol/L Potassium Level 4.1 3.5-5.1 mmol/L Chloride Level 96 L 98-107 mmol/L Carbon Dioxide Level 31 20-31 mmol/L Anion Gap 8 5-15 Blood Urea Nitrogen 23 9-23 mg/dL Creatinine 5.12 H 0.550-1.02 mg/dL Glomerular Filtration Rate Calc 8 >90 mL/min BUN/Creatinine Ratio 4.5 L 10.0-20.0 Serum Glucose 114 H 74-106 mg/dL Calcium Level 9.3 8.7-10.4 mg/dL Magnesium Level 1.9 1.6-2.6 mg/dL Hemoglobin A1c 5.8 H <5.7 % A1C Thyroid Stimulating Hormone (TSH) 3.33 0.55-4.78 uIU/mL POC Glucose 120 H 70-106 mg/dl Test 03/22/25 22:50 03/22/25 19:59 Range/Units Troponin I High Sensitivity 342 *H </=34 ng/L Lactic Acid Level 2.0 0.4-2.0 mmol/L Total Bilirubin 0.4 0.2-1.0 mg/dL Aspartate Amino Transferase (AST) 18 13-40 U/L Alanine Aminotransferase (ALT) 11 7-40 U/L Alkaline Phosphatase 117 H 46-116 U/L B-Type Natriuretic Peptide 4659.49 0-100 pg/mL Total Protein 7.1 5.7-8.2 g/dL Albumin 3.9 3.2-4.8 g/dL Lipase 23 12-53 U/L CT SCAN ABD PELVIS IMPRESSION: 1. Enlarged uterus with calcifications in the wall 18.3 by 7 cm. Consider pelvic ultrasound to evaluate for uterine enlargement fibroids. 2. Ascites scattered throughout the abdomen and pelvis. 3. Small right pleural effusion with atelectasis in the right base. 4. Renal cysts bilaterally with punctate calcifications no hydronephrosis. 5. 2 cm ascites in the right inguinal canal. Problems(with codes): (1) Elevated troponin (2) Epigastric pain (3) Hyperkalemia (4) Abdominal pain (5) Ascites (6) Abdominal mass Plan/Recommendation Assessment and plan Abdominal cramping likely initiated by the use of magnesium citrate in a patient with constipation Patient also has ascites likely cardiac ascites with congestive heart failure fluid overload She has uterine fibroids Continue conservative management Arrange paracentesis ultrasound-guided and sent fluid for analysis Continue dialysis as scheduled Patient has anemia of chronic disease We are going to monitor labs Currently not stable for endoscopic workup because of elevated troponins and non-STEMI I will follow this patient with you closely Plan discussed with: Patient MARISA DE PAZ MD Mar 23, 2025 17:41
[2025-03-23] MEDS ORDERED: DOCUSATE SOD 100 MG CAP PO PRN (17:45)
--- NOTE | 2025-03-23 18:31 | DVH ---
ULTRASOUND ABDOMEN, LIMITED: REASON FOR EXAM: FLUID CHECK TECHNIQUE: Real-time sector scans in the transverse and longitudinal planes were obtained in all 4 q uadrants of the abdomen. FINDINGS: There is trace ascites in all 4 quadrants of the abdomen. IMPRESSION: Trace ascites
[2025-03-23] MEDS: MORPHINE SULFATE INJ 2 MG/ml SYRG IV PRN (21:10)
[2025-03-23 21:46] VITALS: BP 126/44; PULSE 74; RESP 20; TEMP 98.2; O2SAT 97
[2025-03-24] VITALS (8 sets, daily range): BP systolic 108–136; BP diastolic 53–68; PULSE 68–78; RESP 16–20; TEMP 97.6–98.5; O2SAT 93–98
[2025-03-24] MEDS: ATORVASTATIN 20 MG TAB PO SCH (00:07)
[2025-03-24 07:39] LABS: Hematocrit 26.8 % (36.0-46.0); Hemoglobin 8.8 g/dL (12.2-16.2); Mean Corpuscular Hemoglobin 30.7 pg (28.0-32.0); Mean Corpuscular Volume 93.8 fL (80.0-100.0); Nucleated Red Blood Cells % 0.1 %
[2025-03-24 07:50] LABS: Anion Gap 11 (5-15); Carbon Dioxide 29 mmol/L (20-31); Potassium 4.4 mmol/L (3.5-5.1)
[2025-03-24 07:52] LABS: Calcium 9.0 mg/dL (8.7-10.4)
[2025-03-24 07:57] LABS: BUN/Creatinine Ratio 4.7 (10.0-20.0); Glucose 75 mg/dL (74-106)
[2025-03-24 07:59] LABS: Blood Urea Nitrogen 27 mg/dL (9-23); Chloride 95 mmol/L (98-107); Sodium 135 mmol/L (136-145)
[2025-03-24] MEDS: ONDANSETRON HCL 4 MG/2 ML VIAL IV PRN (09:34)
--- NOTE | 2025-03-24 11:03 | DVH ---
PROCEDURE: ULTRASOUND GUIDED PARACENTESIS HISTORY: 74 Female requiring paracentesis. TECHNIQUE: The risks and benefits of the procedure including but not limited to bleeding, infection and injury t o abdominal organs were explained to the patient and written informed consent was obtained. Optimal site for puncture was determined using ultrasound and the area sterilized and draped. Using a 5 Lithuan[place] Yueh catheter, paracentesis was performed in the right lower abdomen. Approximately 1.2 liters of straw colored fluid was removed. The patient tolerated the procedure well. There were no immediate complications. IMPRESSION: Ultrasound-guided paracentesis with no immediate complications. Procedure by Dr. Smart
--- NOTE | 2025-03-24 13:24 | DVHDS2 ---
Discharge Summary Date of Admission Mar 22, 2025 at 23:58 Date of Discharge: Mar 24, 2025 Labs/Diagnostic Data: Laboratory Results Test 03/24/25 12:01 03/24/25 10:20 03/24/25 06:50 03/23/25 13:28 POC Glucose 69 mg/dl (70-106) Body Fluid Source Peritoneal fluid Body Fluid pH 9.0 Body Fluid WBC (Manual) 596 CUMM (0-200) Body Fluid RBC (Manual) 1927 CUMM (0-2000) Body Fluid Mononuclear Cells 95 % Body Fluid Polymorphonuclear Cells 5 % (0-25) White Blood Count 5.2 10^3/uL (4.4-10.8) Red Blood Count 2.86 10^6/uL (4.0-5.20) Hemoglobin 8.8 g/dL (12.2-16.2) Hematocrit 26.8 % (36.0-46.0) Mean Corpuscular Volume 93.8 fL (80.0-100.0) Mean Corpuscular Hemoglobin 30.7 pg (28.0-32.0) Mean Corpuscular Hemoglobin Concent 32.7 g/dL (32.0-36.0) Red Cell Distribution Width 19.5 % (11.8-14.3) Platelet Count 191 10^3/uL (140-450) Mean Platelet Volume 8.1 fL (6.9-10.8) Neutrophils (%) (Auto) 74.7 % (37.0-80.0) Lymphocytes (%) (Auto) 10.9 % (10.0-50.0) Monocytes (%) (Auto) 9.4 % (0.0-12.0) Eosinophils (%) (Auto) 4.3 % (0.0-7.0) Basophils (%) (Auto) 0.7 % (0.0-2.0) Neutrophils # (Auto) 3.9 10 ^3/uL (1.6-8.6) Lymphocytes # (Auto) 0.6 10 ^3/uL (0.4-5.4) Monocytes # (Auto) 0.5 10 ^3/uL (0-1.3) Eosinophils # (Auto) 0.2 10 ^3/uL (0-0.8) Basophils # (Auto) 0 10 ^3/uL (0-0.2) Nucleated Red Blood Cells 0.1 % Sodium Level 135 mmol/L (136-145) Potassium Level 4.4 mmol/L (3.5-5.1) Chloride Level 95 mmol/L (98-107) Carbon Dioxide Level 29 mmol/L (20-31) Anion Gap 11 (5-15) Blood Urea Nitrogen 27 mg/dL (9-23) Creatinine 5.70 mg/dL (0.550-1.02) Glomerular Filtration Rate Calc 7 mL/min (>90) BUN/Creatinine Ratio 4.7 (10.0-20.0) Serum Glucose 75 mg/dL (74-106) Calcium Level 9.0 mg/dL (8.7-10.4) Magnesium Level 1.9 mg/dL (1.6-2.6) Test 03/23/25 13:25 03/23/25 11:42 03/22/25 22:50 03/22/25 19:59 Hemoglobin A1c 5.8 % A1C (<5.7) Thyroid Stimulating Hormone (TSH) 3.33 uIU/mL (0.55-4.78) Troponin I High Sensitivity 342 ng/L (</=34) Lactic Acid Level 2.0 mmol/L (0.4-2.0) Total Bilirubin 0.4 mg/dL (0.2-1.0) Aspartate Amino Transferase (AST) 18 U/L (13-40) Alanine Aminotransferase (ALT) 11 U/L (7-40) Alkaline Phosphatase 117 U/L (46-116) B-Type Natriuretic Peptide 4659.49 pg/mL (0-100) Total Protein 7.1 g/dL (5.7-8.2) Albumin 3.9 g/dL (3.2-4.8) Lipase 23 U/L (12-53) Other Laboratory Tests 03/24/25 06:50 Brief Hx & Hospital Course: see dictated note Condition at Discharge: Fair Final Diagnosis/Problems List abd pain Discharge Disposition: Acute Care Facility Discharge Instruct/Medications Diet: Renal Activity: No Restrictions, As Tolerated Follow Up/Referral: fu with brandee Medications: per mar Scheduled Amlodipine Besylate (Amlodipine Besylate), 1 TAB PO DAILY, (Reported) Apixaban Base (Eliquis), 1 TAB PO BID, (Reported) Atorvastatin Calcium (Atorvastatin Calcium), 1 TAB PO HS, (Reported) Bumetanide (Bumetanide), 1 TAB PO BID, (Reported) Carvedilol (Carvedilol), 1 TAB PO BID, (Reported) Insulin NPH (Human) (Isophane) (Humulin N Kwikpen), 10 UNIT SC HS, (Reported) Insulin NPH (Human) (Isophane) (Humulin N), 21 UNIT SC DAILY, (Reported) Pantoprazole Sodium Sesquihydr (Pantoprazole Sodium), 1 TAB PO BID, (Reported) Discharge Statement: "Patient was advised to return to the ER or call 911 if any headaches, dizziness, shortness of breath, chest pain, abdominal pain, bleeding, fevers, or worsening of medical condition. Patient was counseled about treatment plan, medications, possible side effects, patientverbalized understanding. All questions were answered to the best of my ability. This discharge took greater then 30 minutes in planning, reviewing documentation, counseling the patient, and discussing with other team members." ASSESSMENT ASSESSMENT Assessment abd pain Date of Service: Mar 24, 2025 Billing Provider: TABATHA BURGOS MD Common Visit Codes: [id number]-UHM/OBS DISCH DAY >30min TABATHA BURGOS MD Mar 24, 2025 13:24
[2025-03-24] MEDS ORDERED: SODIUM CHL 0.9% 1000 ML BAG XX ONE (13:30)
--- NOTE | 2025-03-24 13:53 | DVHDS ---
DATE OF DISCHARGE: 03/24/2025 HISTORY OF PRESENT ILLNESS: The patient is a 74-year-old lady who is admitted with complaints of cramping abdominal pain and history of constipation. The patient has history of congestive heart failure, diabetes, atrial fibrillation, end-stage renal disease, on hemodialysis, and AICD. HOSPITAL COURSE: The patient had a CT of abdomen and pelvis that showed evidence of enlarged uterus with calcifications along with evidence of ascites. The patient had a chest x-ray that showed cardiomegaly with CHF. She was seen in GI consult by Dr. Deleon. The patient underwent thoracentesis with removal of 1.2 L of fluid. The patient also had mildly elevated troponin levels. She was seen in cardiology consult by Dr. Harris. It was recommended that it was likely a type 2 non-STEMI. The patient will now be transferred to [place] for further management. FINAL DIAGNOSES: * Abdominal pain with ascites status post paracentesis. * Acute on chronic diastolic heart failure. * Uterine fibroid. * End-stage renal disease, on hemodialysis. * Non-STEMI, likely type 2. * History of AICD. * History of coronary artery disease with stent. * Atrial fibrillation with secondary hypercoagulable state. * Hypertension. * Hyperlipidemia. * Type 2 diabetes mellitus. * Chronic anemia. Time spent in discharge planning and review of plan with the patient and nursing was 41 minutes. MD JAVIER Gallagher/ZIA TID: [id number] RECEIPT: [id number]
--- NOTE | 2025-03-24 14:03 | DVHSR ---
APPROVED REPORT EXAM: Two-dimensional and M-mode echocardiogram with Doppler and color Doppler. Blood Pressure: 117/61 mmHg INDICATION EF RISK FACTORS Height: 5'5", Weight: 162 DIMENSIONS LVDd5.1 (3.8-5.7cm)LA (2D)5.3 (1.9-4.0cm)Aortic Root3.2 (2.0-3.7cm) LVDs4.0 (2.5-4.0cm)LA (MM) (1.9-4.0cm)Aortic Cusp Exc1.6 (1.5-2.0cm) EF (%) 43.0 (55-70%)Rt. Atrium5.2 (1.9-4.0cm)Asc. Aorta cm IVSd1.1 (0.7-1.1cm)RV (D)4.4 (1.8-2.4cm) PWd1.1 (0.7-1.1cm) Mitral Valve MitralMitral Stenosis E wave1.19m/sMV Mean GR.mmHg E/A ratio0.02D MVAcm2 Aortic Valve Aortic ValveAortic Stenosis V10.83m/Tio Mean GR.5mmHg V21.42m/Tio Peak GR.8mmHg LVOT Diameter2.0 (1.8-2.4cm)Doppler AVA1.84cm2 AI P 1/2 Ygas349.00ms Pulmonic Valve V20.57m/s Tricuspid Valve TR Velocity2.93m/s [id number] Other Information Quality : Technically LimitedRhythm : Technically limited study due to patient position. Pt lying on right side. Conclusion There is mild concentric left ventricular hypertrophy Left ventricular systolic function is severely depressed Ejection fraction is estimated at 20% There is [id number] mitral and aortic regurgitation There is moderate to severe tricuspid regurgitation There is mild pulmonary hypertension There is a pacing/ICD wire in the right heart cavity There is trivial pericardial effusion
--- NOTE | 2025-03-24 14:40 | DVHINCON2 ---
DATE OF CONSULTATION: 03/24/2025 CONSULTING PHYSICIAN: Dr. Cuello. REASON FOR CONSULTATION: Management of dialysis. HISTORY OF PRESENT ILLNESS: The patient is a 74-year-old female who is one of our chronic dialysis patients. She came to the hospital yesterday complaining of abdominal cramping and pain. When she was [facility] a laxative [facility], so then she developed this severe abdominal pain and came to the hospital. She ended up being admitted for unknown reasons and I am being consulted to handle her dialysis while she is in the hospital. Currently, she does not have any other symptoms or complaints. PAST MEDICAL HISTORY: Significant for a history of end-stage renal disease, hypertension, diabetes, atrial fibrillation, congestive heart failure, anemia, and hyperparathyroidism. SOCIAL HISTORY: She denies smoking cigarettes, drinking alcohol, or using illicit drugs. FAMILY HISTORY: Noncontributory. MEDICATIONS: In the hospital include aspirin, atorvastatin, docusate, furosemide, carvedilol, insulin, pantoprazole, acetaminophen, Zofran, and hydrocodone. PHYSICAL EXAMINATION: VITAL SIGNS: Blood pressure is ____/72, heart rate 80, respirations 16, temperature 97.6. GENERAL: The patient is an elderly female who appears to be chronically ill, in no acute distress. Alert and oriented x 3. HEENT: Unremarkable. Oral mucosa is moist. There is no pallor. NECK: No jugular venous distention. LUNGS: Clear to auscultation. CARDIOVASCULAR: Regular rate, 2/6 systolic murmur. No gallops. ABDOMEN: Soft, mildly distended. Bowel sounds are increased in intensity and frequency. No organomegaly. No ascites. EXTREMITIES: No clubbing, cyanosis, or edema. She has a patent fistula. NEUROLOGIC: Nonfocal. LABORATORY FINDINGS: Sodium 135, potassium 4.4, BUN 27, creatinine 5.7. Hemoglobin 8.8, white blood cell count 5.2. ASSESSMENT AND PLAN: Stable end-stage renal disease with no electrolyte abnormalities or fluid overload. The patient has been scheduled to have dialysis today. We will do ultrafiltration of only 1 to 1.5 liters since she is not fluid overloaded and has not been eating well for the last 24 hours due to the abdominal pain. If there are no other active medical issues, she could be discharged home after dialysis. Thank you for the consultation. MD BOWEN Alfonso/FELIX/GAGE TID: [id number] RECEIPT: [id number]
[2025-03-24] MEDS: ACETAMINOPHEN 325 MG TAB PO PRN (17:52)
[2025-03-24] MEDS: cefTRIAXone 1GM/50ML D5W 50 ML IV ONE (17:53)
--- NOTE | 2025-03-24 21:53 | DVHPN2 ---
Progress Note - Dictate Date Seen: Mar 24, 2025 Medical Necessity Reason Pt with a Central, PICC or Fol: No Subjective No new complaints Patient underwent paracentesis today 1.5 L of fluid were removed Suspected nephrogenic or cardiac ascites No evidence of SBP One bowel movement recorded vital signs Vital Sign Date Time Temp Pulse Resp B/P (MAP) Pulse Ox O2 Delivery O2 Flow Rate FiO2 03/24/25 21:24 68 18 122/65 03/24/25 17:00 98.5 98 98.5 03/24/25 08:00 Nasal Cannula* 2 28 medications Current Medications Medications Dose Ordered Sig/June Route Start Time Stop Time Status Last Admin Dose Admin Nitroglycerin 0.4 mg Q5MINP PRN SL 03/23/25 00:00 Morphine Sulfate 2 mg Q30M PRN IV 03/23/25 00:00 Carvedilol 25 mg Q12HR PO 03/23/25 10:00 03/24/25 09:30 25 MG Pantoprazole Sodium 40 mg DAILY@0600 PO 03/23/25 06:00 03/24/25 09:28 40 MG Atorvastatin Calcium 20 mg HS PO 03/23/25 22:00 03/24/25 00:07 20 MG Furosemide 40 mg DAILY PO 03/23/25 10:00 03/24/25 09:29 40 MG Diagnostic Test (Pha) 1 strip ACHS 03/23/25 07:00 03/24/25 17:23 1 STRIP Insulin Human Regular ACHS SC 03/23/25 07:00 03/24/25 00:24 2 UNITS Dextrose 50 ml UD PRN IV 03/23/25 00:15 Acetaminophen/ Hydrocodone Bitart 1 tab Q4HP PRN PO 03/23/25 00:15 Ondansetron HCl 4 mg Q4HP PRN IV 03/23/25 00:15 03/24/25 09:34 4 MG Acetaminophen 650 mg Q6HP PRN PO 03/23/25 00:15 03/24/25 17:52 650 MG Morphine Sulfate 2 mg Q6HPRN PRN IV 03/23/25 00:15 03/24/25 21:24 2 MG Aspirin 81 mg DAILY PO 03/24/25 10:00 03/24/25 09:29 81 MG Docusate Sodium 100 mg BIDPRN PRN PO 03/23/25 17:45 Ceftriaxone Sodium 50 ml @ 100 mls/hr DAILY@09 IV 03/25/25 09:00 Metronidazole 100 ml @ 100 mls/hr Q8HR IV 03/24/25 14:00 03/24/25 16:28 100 MLS/HR objective Gen: 74-year-old female in no distress Skin: Warm, dry, normal color and texture, no rash. HEENT: Normocephalic atraumatic, mucous membranes moist and pink. Neck: Cervical and supraclavicular nodes normal without enlargement, trachea is midline, thyroid gland is normal without masses. Pulmonary: Clear to auscultation and percussion bilaterally. Cardiac: Regular rate and rhythm. No murmur Abdomen: Soft, nontender, mild distention, bowel sounds present all 4 quadrants, no guarding, no rigidity, no organomegaly. Extremities: No cyanosis, clubbing, no edema Neuro: Cranial nerves II through XII grossly intact, normal affect and speech, no focal motor deficits. laboratory and microbiology Laboratory Tests 03/24/25 06:50 Test 03/24/25 06:50 Range/Units Serum Glucose 75 74-106 mg/dL Problems(with codes): (1) Abdominal pain (2) Ascites (3) CHF with cardiomyopathy (4) End stage renal disease on dialysis Prognosis Plan Advance diet as tolerated Monitor labs then bowel activity Discharge planning is in progress Patient scheduled for transferred to [place] for further ongoing management Plan discussed with: Other (Nurse) MARISA DE PAZ MD Mar 24, 2025 21:53
[2025-03-25] MEDS ORDERED: cefTRIAXone 1GM/50ML D5W 50 ML IV SCH (09:00)
[2025-03-25 12:07] LABS: Glucose, Body Fluid 79.0 mg/dL (.); LD, Body Fluid 127.0 IU/L (.)
== END 2025-03-24 23:55 | disposition short-term general hospital (02) | DRG 280 ==
LOC: ER 18:54 → EDBD 18:54 → OVERFLOW 23:58 → TELE-CENTR 03-23 21:46
PROVIDERS: ADMIT Internal Medicine; ATTEND Internal Medicine
PROC: 5A1D70Z Performance of Urinary Filtration, Intermittent, Less than 6 Hours Per Day (ICD-10-PCS; principal; 2025-03-24)
PROC: 0W9G3ZZ Drainage of Peritoneal Cavity, Percutaneous Approach (ICD-10-PCS; 2025-03-24)
DX: I13.2 Hypertensive heart and chronic kidney disease with heart failure and with stage 5 chronic kidney disease, or end stage renal disease (principal); I50.33 Acute on chronic diastolic (congestive) heart failure; I21.A1 Myocardial infarction type 2; N18.6 End stage renal disease; R18.8 Other ascites; D68.69 Other thrombophilia; D63.1 Anemia in chronic kidney disease; Z99.2 Dependence on renal dialysis; I48.91 Unspecified atrial fibrillation; E11.22 Type 2 diabetes mellitus with diabetic chronic kidney disease; E66.9 Obesity, unspecified; K59.09 Other constipation; Z96.653 Presence of artificial knee joint, bilateral; I25.5 Ischemic cardiomyopathy; I25.10 Atherosclerotic heart disease of native coronary artery without angina pectoris; E87.5 Hyperkalemia; E78.5 Hyperlipidemia, unspecified; D25.9 Leiomyoma of uterus, unspecified; Z95.810 Presence of automatic (implantable) cardiac defibrillator; Z95.5 Presence of coronary angioplasty implant and graft; Z82.49 Family history of ischemic heart disease and other diseases of the circulatory system; Z80.0 Family history of malignant neoplasm of digestive organs; Z68.27 Body mass index [BMI] 27.0-27.9, adult; Z79.4 Long term (current) use of insulin; Z88.5 Allergy status to narcotic agent
CPT/HCPCS: 36415; 49083; 71045; 74176; 76705; 76942; 80048; 80053; 82962; 83036; 83605; 83690; 83735; 83880; 83986; 84443; 84484; 85025; 87081; 87205; 89051; 90935; 93005; 93306; 96374; 96375; G0378; J1815; J2405; J2470; J3490